=== PATIENT | female | born 1935 | race Caucasian/White ===

== ENCOUNTER → 2016-10-27 | Outpatient (REF) | payer MEDICARE, MEDICAID ==
[2016-10-27 15:49] LABS: BASO % 0.3 % (0.0-1.0); EOS # 0.1 K/mm3 (0.0-0.50); LARGE UNSTAINED CELL # 0.1 K/mm3 (0.0-0.4); LARGE UNSTAINED CELL % 1.3 % (0.0-4.0); LYMPH # 2.7 K/mm3 (1.5-4.5); LYMPH % 24.5 % (24.0-44.0); MEAN CORPUSCULAR HEMOGLOBIN 29.4 pg (27.0-33.0); MEAN CORPUSCULAR VOLUME 88.9 fl (80.0-96.0); MONO # 0.9 K/mm3 (0.0-0.8); MONO % 7.9 % (0.0-5.0); NEUTROPHILS # 7.1 K/mm3 (1.8-7.7); PLATELET COUNT, AUTOMATED 243 k/mm3 (150-450); RED CELL DISTRIBUTION WIDTH 12.9 % (11.5-14.5)
[2016-10-27 16:10] LABS: ALBUMIN 4.4 GM/DL (3.2-5.2); ALBUMIN/GLOBULIN RATIO 1.52 (1.00-1.93); ALKALINE PHOSPHATASE 93 U/L (45-117); ALT/SGPT 22 U/L (12-78); ANION GAP 9 MEQ/L (8-16); AST/SGOT 13 U/L (15-37); BILIRUBIN,TOTAL 0.6 MG/DL (0.2-1.0); BLOOD UREA NITROGEN 17 MG/DL (7-18); CALCIUM LEVEL 9.7 MG/DL (8.8-10.2); CARBON DIOXIDE LEVEL 29 MEQ/L (21-32); CHLORIDE LEVEL 102 MEQ/L (98-107); CREATININE FOR GFR 0.74 MG/DL (0.55-1.02); GLOMERULAR FILTRATION RATE > 60.0 (>32); GLUCOSE, FASTING 95 MG/DL (83-110); SODIUM LEVEL 140 MEQ/L (136-145); TOTAL PROTEIN 7.3 GM/DL (6.4-8.2)
== END ==
LOC: M SFHCPLAZ 13:57
PROVIDERS: ATTEND Nurse Practitioner Family
DX: K62.5 Hemorrhage of anus and rectum (principal)

== ENCOUNTER → 2016-11-05 | Outpatient (CLI) | payer MEDICARE, MEDICAID ==
[2016-11-05 12:32] LABS: ALBUMIN/GLOBULIN RATIO 1.25 (1.00-1.93); ALKALINE PHOSPHATASE 85 U/L (45-117); ALT/SGPT 23 U/L (12-78); ANION GAP 6 MEQ/L (8-16); AST/SGOT 14 U/L (15-37); BILIRUBIN,TOTAL 0.7 MG/DL (0.2-1.0); BLOOD UREA NITROGEN 19 MG/DL (7-18); CALCIUM LEVEL 9.6 MG/DL (8.8-10.2); CARBON DIOXIDE LEVEL 30 MEQ/L (21-32); CHLORIDE LEVEL 104 MEQ/L (98-107); CREATININE FOR GFR 0.79 MG/DL (0.55-1.02); GLOMERULAR FILTRATION RATE > 60.0 (>32); GLUCOSE, FASTING 98 MG/DL (83-110); POTASSIUM SERUM 4.2 MEQ/L (3.5-5.1); SODIUM LEVEL 140 MEQ/L (136-145); TOTAL PROTEIN 7.2 GM/DL (6.4-8.2)
[2016-11-05 12:48] LABS: MEAN CORPUSCULAR HEMOGLOBIN 29.7 pg (27.0-33.0); MEAN CORPUSCULAR HGB CONC 33.1 g/dl (32.0-36.5); MEAN CORPUSCULAR VOLUME 89.8 fl (80.0-96.0); RED CELL DISTRIBUTION WIDTH 13.1 % (11.5-14.5); WHITE BLOOD COUNT 6.6 K/mm3 (4.0-10.0)
--- NOTE | 2016-11-05 22:18 | ECGEPIP ---
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 Nonspecific ST-T abnormalities. No prior ECG available for comparison at the time of interpretation. Electronically Signed On 11-05-2016 22:18:42 EDT by Guille Awad
== END ==
LOC: M LAB 10:49
DX: Z01.818 Encounter for other preprocedural examination (principal); I10 Essential (primary) hypertension

== ENCOUNTER → 2017-08-18 | Outpatient (CLI) | payer MEDICARE, MEDICAID | LOC: M SMT 11:13 | DX: J06.0 Acute laryngopharyngitis (principal) | CPT/HCPCS: 71046 ==

== ENCOUNTER → 2017-10-28 | Outpatient (CLI) | payer MEDICARE ==
[2017-10-28 14:52] LABS: BASO # 0.1 10^3/uL (0.0-0.2); BASO % 0.6 % (0.0-1.0); HEMATOCRIT 37.9 % (36.0-47.0); HEMOGLOBIN 12.4 g/dl (12.0-16.0); IMMATURE GRANULOCYTE % 0.4 % (0-3.0); LYMPH % 39.1 % (24.0-44.0); MEAN CORPUSCULAR HEMOGLOBIN 29.3 pg (27.0-33.0); MEAN CORPUSCULAR HGB CONC 32.7 g/dl (32.0-36.5); MEAN CORPUSCULAR VOLUME 89.6 fl (80.0-96.0); MONO # 0.9 10^3/uL (0.0-0.8); MONO % 11.4 % (0.0-5.0); NEUTROPHILS # 3.8 10^3/uL (1.8-7.7); NEUTROPHILS % 48.5 % (36.0-66.0); PLATELET COUNT, AUTOMATED 229 10^3/uL (150-450); RED BLOOD COUNT 4.23 10^6/uL (4.00-5.40); RED CELL DISTRIBUTION WIDTH 13.9 % (11.5-14.5); WHITE BLOOD COUNT 7.8 10^3/uL (4.0-10.0)
[2017-10-28 15:21] LABS: TOTAL 25(OH) VITAMIN D 19.6 NG/ML (30.0-100.0)
[2017-10-28 15:22] LABS: PTH INTACT 85.1 PG/ML (18.5-88.0)
[2017-10-28 15:41] LABS: ALBUMIN 3.9 GM/DL (3.2-5.2); ALBUMIN/GLOBULIN RATIO 1.15 (1.00-1.93); ALKALINE PHOSPHATASE 91 U/L (45-117); ALT/SGPT 19 U/L (12-78); ANION GAP 7 MEQ/L (8-16); AST/SGOT 10 U/L (7-37); BILIRUBIN,TOTAL 0.4 MG/DL (0.2-1.0); BLOOD UREA NITROGEN 22 MG/DL (7-18); CARBON DIOXIDE LEVEL 28 MEQ/L (21-32); CHLORIDE LEVEL 105 MEQ/L (98-107); CHOLESTEROL LEVEL 168 MG/DL (<200); CPK CREATINE PHOSPHOKINASE 72 U/L (26-192); ESTIMATED AVERAGE GLUCOSE 123 MG/DL (60-110); FREE T4 1.07 NG/DL (0.76-1.46); GLOMERULAR FILTRATION RATE > 60.0 (>32); GLUCOSE, FASTING 121 MG/DL (70-100); HDL CHOLESTEROL 56 MG/DL (>40); HEMOGLOBIN A1c 5.9 %; LDL CHOLESTEROL 85.8 MG/DL (<100); NON-HDL-C 112 MG/DL; SODIUM LEVEL 140 MEQ/L (136-145); THYROID STIMULATING HORMONE 0.829 uIU/ML (0.358-3.740); TOTAL PROTEIN 7.3 GM/DL (6.4-8.2); TRIGLYCERIDES LEVEL 131 MG/DL (<150)
== END ==
LOC: M LAB 14:22
DX: E55.9 Vitamin D deficiency, unspecified (principal); I10 Essential (primary) hypertension; E78.5 Hyperlipidemia, unspecified; E66.9 Obesity, unspecified; Z79.899 Other long term (current) drug therapy
CPT/HCPCS: 82550

== ENCOUNTER → 2017-11-03 | Outpatient (CLI) | payer MEDICARE, MEDICAID | LOC: M WHC 08:51 | DX: M85.89 Other specified disorders of bone density and structure, multiple sites (principal); Z13.820 Encounter for screening for osteoporosis; E55.9 Vitamin D deficiency, unspecified | CPT/HCPCS: 77080 ==

== ENCOUNTER → 2017-12-08 | Outpatient (REF) | payer MEDICARE, MEDICAID ==
[2017-12-08 12:43] LABS: PTH INTACT 55.5 PG/ML (18.5-88.0)
== END ==
LOC: M LABDRAW1 11:45
DX: E55.9 Vitamin D deficiency, unspecified (principal)
CPT/HCPCS: 82306

== ENCOUNTER → 2018-06-02 | Outpatient (REF) | payer MEDICARE ==
[2018-06-02 12:32] LABS: BASO # 0.1 10^3/uL (0.0-0.2); BASO % 0.7 % (0.0-1.0); HEMATOCRIT 38.1 % (36.0-47.0); HEMOGLOBIN 12.4 g/dl (12.0-15.5); IMMATURE GRANULOCYTE % 0.5 % (0-3.0); LYMPH # 2.5 10^3/uL (1.5-4.5); LYMPH % 33.4 % (24.0-44.0); MEAN CORPUSCULAR HEMOGLOBIN 29.8 pg (27.0-33.0); MEAN CORPUSCULAR HGB CONC 32.5 g/dl (32.0-36.5); MEAN CORPUSCULAR VOLUME 91.6 fl (80.0-96.0); MONO # 0.9 10^3/uL (0.0-0.8); MONO % 11.8 % (0.0-5.0); NEUTROPHILS # 4.1 10^3/uL (1.8-7.7); NEUTROPHILS % 53.6 % (36.0-66.0); PLATELET COUNT, AUTOMATED 204 10^3/uL (150-450); RED BLOOD COUNT 4.16 10^6/uL (4.00-5.40); RED CELL DISTRIBUTION WIDTH 13.6 % (11.5-14.5); WHITE BLOOD COUNT 7.6 10^3/uL (4.0-10.0)
[2018-06-02 12:48] LABS: ESTIMATED AVERAGE GLUCOSE 123 MG/DL (60-110); HEMOGLOBIN A1c 5.9 %
[2018-06-02 13:30] LABS: ALBUMIN 3.8 GM/DL (3.2-5.2); ALBUMIN/GLOBULIN RATIO 1.23 (1.00-1.93); ALKALINE PHOSPHATASE 96 U/L (45-117); ALT/SGPT 20 U/L (12-78); ANION GAP 9 MEQ/L (8-16); AST/SGOT 11 U/L (7-37); BILIRUBIN,TOTAL 0.6 MG/DL (0.2-1.0); BLOOD UREA NITROGEN 14 MG/DL (7-18); CARBON DIOXIDE LEVEL 28 MEQ/L (21-32); CHLORIDE LEVEL 104 MEQ/L (98-107); CHOLESTEROL LEVEL 125 MG/DL (<200); CHOLESTEROL RISK RATIO 2.083 (<5); CPK CREATINE PHOSPHOKINASE 53 U/L (26-192); CREATININE FOR GFR 0.74 MG/DL (0.55-1.30); FREE T4 1.15 NG/DL (0.76-1.46); GLOMERULAR FILTRATION RATE > 60.0 (>32); GLUCOSE, FASTING 97 MG/DL (70-100); HDL CHOLESTEROL 60 MG/DL (>40); LDL CHOLESTEROL 47 MG/DL (<100); NON-HDL-C 65 MG/DL; POTASSIUM SERUM 4.3 MEQ/L (3.5-5.1); SODIUM LEVEL 141 MEQ/L (136-145); THYROID STIMULATING HORMONE 0.718 uIU/ML (0.358-3.740); TOTAL PROTEIN 6.9 GM/DL (6.4-8.2); TRIGLYCERIDES LEVEL 92 MG/DL (<150)
== END ==
LOC: M LABDRAW1 11:27
DX: E78.5 Hyperlipidemia, unspecified (principal); I10 Essential (primary) hypertension; E66.9 Obesity, unspecified
CPT/HCPCS: 82550

== ENCOUNTER → 2018-06-02 | Outpatient (CLI) | payer MEDICARE | LOC: M WHC 10:55 | DX: Z12.31 Encounter for screening mammogram for malignant neoplasm of breast (principal); R92.8 Other abnormal and inconclusive findings on diagnostic imaging of breast; Z78.0 Asymptomatic menopausal state; Z80.0 Family history of malignant neoplasm of digestive organs; E78.5 Hyperlipidemia, unspecified; I10 Essential (primary) hypertension; E66.9 Obesity, unspecified; Z79.899 Other long term (current) drug therapy | CPT/HCPCS: 82550 ==

== ENCOUNTER → 2018-07-06 | Outpatient (REF) | payer MEDICARE, MEDICAID ==
[2018-07-06 17:47] LABS: BASO % 0.4 % (0.0-1.0); HEMOGLOBIN 13.1 g/dl (12.0-15.5); IMMATURE GRANULOCYTE % 0.5 % (0-3.0); LYMPH # 3.3 10^3/uL (1.5-4.5); LYMPH % 28.9 % (24.0-44.0); MEAN CORPUSCULAR HEMOGLOBIN 29.5 pg (27.0-33.0); MEAN CORPUSCULAR HGB CONC 32.8 g/dl (32.0-36.5); MEAN CORPUSCULAR VOLUME 90.1 fl (80.0-96.0); MONO # 1.4 10^3/uL (0.0-0.8); NEUTROPHILS # 6.6 10^3/uL (1.8-7.7); NEUTROPHILS % 58.2 % (36.0-66.0); PLATELET COUNT, AUTOMATED 240 10^3/uL (150-450); RED BLOOD COUNT 4.44 10^6/uL (4.00-5.40); RED CELL DISTRIBUTION WIDTH 13.5 % (11.5-14.5); WHITE BLOOD COUNT 11.3 10^3/uL (4.0-10.0)
[2018-07-06 17:58] LABS: INR 0.93; PROTHROMBIN TIME 12.6 SECONDS (12.1-14.4)
[2018-07-06 17:59] LABS: PARTIAL THROMBOPLASTIN TIME 34.7 SECONDS (25.4-37.6)
[2018-07-06 18:09] LABS: ALBUMIN 4.3 GM/DL (3.2-5.2); ALBUMIN/GLOBULIN RATIO 1.34 (1.00-1.93); ALKALINE PHOSPHATASE 101 U/L (45-117); ALT/SGPT 21 U/L (12-78); ANION GAP 8 MEQ/L (8-16); AST/SGOT 11 U/L (7-37); BILIRUBIN,TOTAL 0.5 MG/DL (0.2-1.0); BLOOD UREA NITROGEN 19 MG/DL (7-18); CALCIUM LEVEL 9.6 MG/DL (8.8-10.2); CARBON DIOXIDE LEVEL 27 MEQ/L (21-32); CHLORIDE LEVEL 103 MEQ/L (98-107); CREATININE FOR GFR 0.78 MG/DL (0.55-1.30); GLOMERULAR FILTRATION RATE > 60.0 (>32); GLUCOSE, FASTING 96 MG/DL (70-100); POTASSIUM SERUM 3.9 MEQ/L (3.5-5.1); SODIUM LEVEL 138 MEQ/L (136-145); TOTAL PROTEIN 7.5 GM/DL (6.4-8.2)
== END ==
LOC: M SFHCPLAZ 16:04
DX: Z01.818 Encounter for other preprocedural examination (principal); H25.10 Age-related nuclear cataract, unspecified eye; E78.5 Hyperlipidemia, unspecified; I10 Essential (primary) hypertension
CPT/HCPCS: 80053

== ENCOUNTER 2018-07-13 08:47 | Day surgery (SDC) | payer MEDICARE, MEDICAID ==
[2018-07-13] MEDS: OFLOXACIN 0.3 % (OCUFLOX) OPTH SOL 5ML OS (07:00)
[2018-07-13] MEDS: CYCLOPENTOLATE 2% OPHTH SOLN 2ML BTL OS (07:00)
[2018-07-13] MEDS: TROPICAMIDE 1% OPHTH SOLN 2ML OS (07:00)
[2018-07-13] MEDS: LIDOCAINE 3.5 % 1ML OPHTH TOPICAL GEL OU (07:00)
[2018-07-13] MEDS: PHENYLEPHRINE 2.5% OPHTH SOL 2ML OS (07:00)
[~2018-07-13 08:47] MED LIST: ACETAMINOPHEN 325 MG TAB PO; MIDAZOLAM INJ 2 MG/2 ML VIAL (J2250) As Ordered; PHENYLEPHRINE HCL 10 % OPHTH. SOL 5ML OS; fentaNYL 100 MCG/2 ML INJECTION (J3010) As Ordered
[2018-07-13] MEDS: POVIDONE-IODINE 5% OPHTH PREP SOL 30ML As Ordered (11:07)
[2018-07-13] MEDS: TRIAMCINOLONE PRES FR 40 MG/ML 1ML(TRIESENCE)(OR EYE ONLY)(J3300 PER 1MG) As Ordered (11:10)
[2018-07-13] MEDS: HEALON DUET PRO(HEALON 10MG/ML 0.55ML & HEALON ENDOCOAT 30MG/ML 0.85ML) As Ordered (11:10)
[2018-07-13] MEDS: LIDOCAINE 1% SDV 5 ML VIAL As Ordered (11:10)
[2018-07-13] MEDS: MOXIFLOXACIN IN BSS 0.25MG/0.25ML INTRACAMERAL INJ (OR EYE ONLY)(J2280) As Ordered (11:10)
[2018-07-13] MEDS: BSS with VANC/TOB/EPI for EYE CASES IR (11:10)
[2018-07-13] MEDS: LIDOCAINE 2% W/EPIN INJ 20ML **PRES FREE XX (11:11)
[2018-07-13] MEDS ORDERED: TRIMETHOBENZAMIDE 300 MG CAP PO (11:45)
[2018-07-13] MEDS: AcetaZOLAMIDE 500 MG ER CAP PO (11:45)
== END 2018-07-13 12:43 | disposition home or self-care (01) ==
LOC: M SDC 08:47
DX: H25.9 Unspecified age-related cataract (principal); I10 Essential (primary) hypertension; E78.5 Hyperlipidemia, unspecified; Z79.899 Other long term (current) drug therapy
CPT/HCPCS: 66984

== ENCOUNTER → 2018-07-29 | Outpatient (REF) | payer MEDICARE, MEDICAID ==
[2018-07-29 18:22] LABS: NT-PRO BNP 140 PG/ML (<450)
== END ==
LOC: M SFHCPLAZ 15:46
DX: R06.02 Shortness of breath (principal)
CPT/HCPCS: 36415

== ENCOUNTER → 2018-11-11 | Outpatient (REF) | payer MEDICARE, MEDICAID ==
[~2018-11-11] MED LIST changes: -ACETAMINOPHEN 325 MG TAB PO; +CRES10TA PO; +D 50CAP PO; +LOSA100T8 PO; -MIDAZOLAM INJ 2 MG/2 ML VIAL (J2250) As Ordered; +MULT1TAB10 PO; -PHENYLEPHRINE HCL 10 % OPHTH. SOL 5ML OS; -fentaNYL 100 MCG/2 ML INJECTION (J3010) As Ordered
== END ==
LOC: M SFHCPLAZ 17:01
PROVIDERS: ATTEND Physician Assistant
DX: R30.0 Dysuria (principal)
CPT/HCPCS: 51798; 87088; 87186; G0463

== ENCOUNTER → 2018-11-25 | Outpatient (REF) | payer MEDICARE, MEDICAID | LOC: M SMT 13:26 | PROVIDERS: ATTEND Urology | DX: N39.0 Urinary tract infection, site not specified (principal) | CPT/HCPCS: 81002; 87088; 87186; G0463 ==

== ENCOUNTER → 2019-01-07 | Outpatient (CLI) | payer MEDICARE, MEDICAID ==
[2019-01-07 18:17] LABS: ALBUMIN 4.3 GM/DL (3.2-5.2); ALT/SGPT 25 U/L (12-78); BILIRUBIN,TOTAL 0.5 MG/DL (0.2-1.0); BLOOD UREA NITROGEN 19 MG/DL (7-18); CALCIUM LEVEL 10.2 MG/DL (8.8-10.2); CARBON DIOXIDE LEVEL 31 MEQ/L (21-32); CHLORIDE LEVEL 103 MEQ/L (98-107); CREATININE FOR GFR 0.78 MG/DL (0.55-1.30); GLOMERULAR FILTRATION RATE > 60.0 (>32); GLUCOSE, FASTING 99 MG/DL (70-100); POTASSIUM SERUM 4.2 MEQ/L (3.5-5.1); SODIUM LEVEL 141 MEQ/L (136-145); TOTAL PROTEIN 7.7 GM/DL (6.4-8.2)
== END ==
LOC: M SMT 14:05
PROVIDERS: ATTEND Physician Assistant Medical
DX: B95.2 Enterococcus as the cause of diseases classified elsewhere (principal); E78.5 Hyperlipidemia, unspecified; N39.0 Urinary tract infection, site not specified
CPT/HCPCS: 36415; 51798; 80053; 87088; 87186; G0463

== ENCOUNTER → 2019-03-11 | Outpatient (REF) | payer MEDICARE, MEDICAID | LOC: M SMT 17:01 | PROVIDERS: ATTEND Urology | DX: N39.0 Urinary tract infection, site not specified (principal) ==

== ENCOUNTER → 2019-05-31 | Outpatient (REF) | payer MEDICARE, MEDICAID ==
[2019-05-31 16:30] LABS: BASO # 0.1 10^3/uL (0.0-0.2); BASO % 0.7 % (0.0-1.0); HEMATOCRIT 40.4 % (36.0-47.0); LYMPH # 2.3 10^3/uL (1.5-5.0); LYMPH % 30.6 % (24.0-44.0); MEAN CORPUSCULAR HGB CONC 32.2 g/dl (32.0-36.5); MEAN CORPUSCULAR VOLUME 93.1 fl (80.0-96.0); MONO # 0.9 10^3/uL (0.0-0.8); MONO % 12.2 % (0.0-5.0); NEUTROPHILS # 4.1 10^3/uL (1.5-8.5); NEUTROPHILS % 55.8 % (36.0-66.0); PLATELET COUNT, AUTOMATED 225 10^3/uL (150-450); RED BLOOD COUNT 4.34 10^6/uL (4.00-5.40); WHITE BLOOD COUNT 7.4 10^3/uL (4.0-10.0)
[2019-05-31 16:43] LABS: ALBUMIN 4.2 GM/DL (3.2-5.2); ALT/SGPT 19 U/L (12-78); BILIRUBIN,TOTAL 0.6 MG/DL (0.2-1.0); BLOOD UREA NITROGEN 19 MG/DL (7-18); CALCIUM LEVEL 9.6 MG/DL (8.8-10.2); CARBON DIOXIDE LEVEL 29 MEQ/L (21-32); CHLORIDE LEVEL 105 MEQ/L (98-107); CHOLESTEROL LEVEL 163 MG/DL (<200); CHOLESTEROL RISK RATIO 2.587 (<5); CPK CREATINE PHOSPHOKINASE 64 U/L (26-192); CREATININE FOR GFR 0.73 MG/DL (0.55-1.30); FREE T4 1.18 NG/DL (0.76-1.46); GLOMERULAR FILTRATION RATE > 60.0 (>32); GLUCOSE, FASTING 97 MG/DL (70-100); HDL CHOLESTEROL 63 MG/DL (>40); LDL CHOLESTEROL 79 MG/DL (<100); NON-HDL-C 100 MG/DL; POTASSIUM SERUM 4.1 MEQ/L (3.5-5.1); SODIUM LEVEL 138 MEQ/L (136-145); THYROID STIMULATING HORMONE 0.958 uIU/ML (0.358-3.740); TOTAL PROTEIN 7.8 GM/DL (6.4-8.2); TRIGLYCERIDES LEVEL 104 MG/DL (<150)
[2019-05-31 17:01] LABS: HEMOGLOBIN A1c 5.9 %
[2019-05-31 17:36] LABS: PTH INTACT 75.1 PG/ML (18.5-88.0); TOTAL 25(OH) VITAMIN D 20.6 NG/ML (30.0-100.0)
== END ==
LOC: M SFHCPLAZ 12:24
PROVIDERS: ATTEND Physician Assistant Medical
DX: E55.9 Vitamin D deficiency, unspecified (principal); E78.5 Hyperlipidemia, unspecified; I10 Essential (primary) hypertension; E66.9 Obesity, unspecified
CPT/HCPCS: 36415; 80053; 80061; 82306; 82550; 83036; 83970; 84439; 84443; 85025; 90682; G0008; G0463

== ENCOUNTER → 2019-09-28 | Outpatient (REF) | payer OTHER, MEDICAID ==
[2019-09-28 17:29] LABS: APPEARANCE, URINE CLEAR (CLEAR); BACTERIA, URINE AUTO NEGATIVE (NEGATIVE); BILIRUBIN, URINE AUTO NEGATIVE (NEGATIVE); BLOOD, URINE BLOOD 1+ (NEGATIVE); COLOR, URINE YELLOW (YELLOW); GLUCOSE, URINE (UA) AUTO NEGATIVE (NEGATIVE); KETONE, URINE AUTO NEGATIVE (NEGATIVE); LEUKOCYTE ESTERASE, URINE AUTO 1+ (NEGATIVE); MUCUS, URINE SMALL (NEGATIVE); NITRITE, URINE AUTO NEGATIVE (NEGATIVE); PROTEIN, URINE AUTO NEGATIVE (NEGATIVE); RBC, URINE AUTO 8 /HPF (0-3); SPECIFIC GRAVITY URINE AUTO 1.014 (1.002-1.035); SQUAMOUS EPITHELIAL CELL UR AU 1 /HPF (0-6); UROBILINOGEN, URINE AUTO 0.2 mg/dL (0.0-2.0); WBC, URINE AUTO 17 /HPF (0-3)
== END ==
LOC: M SMT 16:50
PROVIDERS: ATTEND Nurse Practitioner Family
DX: N39.0 Urinary tract infection, site not specified (principal)
CPT/HCPCS: 81001; 87088; 87186; G0463

== ENCOUNTER → 2020-04-04 | Outpatient (REF) | payer OTHER, MEDICAID ==
[2020-04-04 18:27] LABS: APPEARANCE, URINE CLEAR (CLEAR); BACTERIA, URINE AUTO NEGATIVE (NEGATIVE); BILIRUBIN, URINE AUTO NEGATIVE (NEGATIVE); BLOOD, URINE BLOOD 1+ (NEGATIVE); COLOR, URINE YELLOW (YELLOW); GLUCOSE, URINE (UA) AUTO NEGATIVE (NEGATIVE); KETONE, URINE AUTO NEGATIVE (NEGATIVE); LEUKOCYTE ESTERASE, URINE AUTO 1+ (NEGATIVE); NITRITE, URINE AUTO NEGATIVE (NEGATIVE); PROTEIN, URINE AUTO NEGATIVE (NEGATIVE); RBC, URINE AUTO 0 /HPF (0-3); SPECIFIC GRAVITY URINE AUTO 1.015 (1.002-1.035); SQUAMOUS EPITHELIAL CELL UR AU 1 /HPF (0-6); UROBILINOGEN, URINE AUTO 0.2 mg/dL (0.0-2.0); WBC, URINE AUTO 1 /HPF (0-3)
== END ==
LOC: M LAB REF 12:00
PROVIDERS: ATTEND Nurse Practitioner Family
DX: N39.0 Urinary tract infection, site not specified (principal)
CPT/HCPCS: 51798; 81000; 81001; 87088; 87186; G0463

== ENCOUNTER → 2020-10-10 | Outpatient (REF) | payer OTHER, MEDICAID ==
[2020-10-10 14:27] LABS: APPEARANCE, URINE CLOUDY (CLEAR); BACTERIA, URINE AUTO NEGATIVE (NEGATIVE); BILIRUBIN, URINE AUTO NEGATIVE (NEGATIVE); BLOOD, URINE BLOOD 1+ (NEGATIVE); COLOR, URINE YELLOW (YELLOW); GLUCOSE, URINE (UA) AUTO NEGATIVE (NEGATIVE); KETONE, URINE AUTO NEGATIVE (NEGATIVE); LEUKOCYTE ESTERASE, URINE AUTO 3+ (NEGATIVE); MUCUS, URINE SMALL (NEGATIVE); NITRITE, URINE AUTO NEGATIVE (NEGATIVE); PROTEIN, URINE AUTO NEGATIVE (NEGATIVE); RBC, URINE AUTO 0 /HPF (0-3); SQUAMOUS EPITHELIAL CELL UR AU 4 /HPF (0-6); UROBILINOGEN, URINE AUTO 0.2 mg/dL (0.0-2.0); WBC, URINE AUTO 112 /HPF (0-3)
[2020-10-10 14:50] LABS: ALBUMIN 4.3 GM/DL (3.2-5.2); ALT/SGPT 20 U/L (12-78); BILIRUBIN,TOTAL 0.5 MG/DL (0.2-1.0); BLOOD UREA NITROGEN 20 MG/DL (7-18); CALCIUM LEVEL 10.2 MG/DL (8.8-10.2); CARBON DIOXIDE LEVEL 27 MEQ/L (21-32); CHLORIDE LEVEL 103 MEQ/L (98-107); CHOLESTEROL LEVEL 144 MG/DL (<200); CHOLESTEROL RISK RATIO 2.571 (<5); CPK CREATINE PHOSPHOKINASE 56 U/L (26-192); CREATININE FOR GFR 0.83 MG/DL (0.55-1.30); FREE T4 1.01 NG/DL (0.76-1.46); GLOMERULAR FILTRATION RATE > 60.0 (>32); GLUCOSE, FASTING 96 MG/DL (70-100); HDL CHOLESTEROL 56 MG/DL (>40); LDL CHOLESTEROL 60 MG/DL (<100); NON-HDL-C 88 MG/DL; POTASSIUM SERUM 4.9 MEQ/L (3.5-5.1); SODIUM LEVEL 137 MEQ/L (136-145); TOTAL 25(OH) VITAMIN D 22.5 NG/ML (30.0-100.0); TOTAL PROTEIN 7.5 GM/DL (6.4-8.2); TRIGLYCERIDES LEVEL 142 MG/DL (<150)
[2020-10-10 15:18] LABS: HEMOGLOBIN A1c 5.7 %
[2020-10-10 15:46] LABS: BASO # 0.1 10^3/uL (0.0-0.2); BASO % 0.7 % (0.0-1.0); EOS # 0.1 10^3/uL (0.0-0.5); EOS % 1.4 % (0.0-3.0); HEMATOCRIT 40.7 % (36.0-47.0); LYMPH # 3.4 10^3/uL (1.5-5.0); LYMPH % 39.9 % (24.0-44.0); MEAN CORPUSCULAR HEMOGLOBIN 29.4 pg (27.0-33.0); MEAN CORPUSCULAR HGB CONC 31.9 g/dl (32.0-36.5); MEAN CORPUSCULAR VOLUME 92.1 fl (80.0-96.0); MONO # 1.3 10^3/uL (0.0-0.8); MONO % 14.7 % (2.0-8.0); NEUTROPHILS # 3.7 10^3/uL (1.5-8.5); NEUTROPHILS % 42.5 % (36.0-66.0); PLATELET COUNT, AUTOMATED 223 10^3/uL (150-450); RED BLOOD COUNT 4.42 10^6/uL (4.00-5.40); WHITE BLOOD COUNT 8.6 10^3/uL (4.0-10.0)
== END ==
LOC: M SFHCPLAZ 09:45
PROVIDERS: ATTEND Physician Assistant Medical
DX: R34 Anuria and oliguria (principal); E55.9 Vitamin D deficiency, unspecified; I10 Essential (primary) hypertension; E78.5 Hyperlipidemia, unspecified; E66.9 Obesity, unspecified

== ENCOUNTER 2021-01-03 11:15 | Inpatient (IN) | payer OTHER, MEDICAID ==
[~2021-01-03] VITALS: Ht 165.1 cm; Wt 93.4 kg
--- NOTE | 2021-01-03 11:47 | REP ---
INDICATION: SEPSIS/SHOCK COMPARISON: 08/18/2017 TECHNIQUE: Portable AP view of the chest FINDINGS: The mediastinum and cardiac silhouette are stable and within normal limits for portable technique. The lung love are clear without acute consolidation, effusion, or pneumothorax. Chronic linear scarring in the right lower lung zone again noted. Skeletal structures are intact. IMPRESSION: No acute cardiopulmonary process appreciated. <Electronically signed by Paddy Umana > 01/03/21 1158
[2021-01-03 11:56] LABS: VENOUS BASE EXCESS 2.5 (-2.0-2.0); VENOUS HCO3 25.9 MEQ/L (23.0-27.0); VENOUS O2 SATURATION 88.1 % (60.0-80.0); VENOUS PARTIAL PRESSURE CO2 36.2 mmHg (38.0-50.0); VENOUS PARTIAL PRESSURE O2 49.3 mmHg (30.0-50.0); VENOUS PH 7.472 UNITS (7.330-7.430); VENOUS STANDARD HCO3 26.4 MEQ/L
[2021-01-03 12:03] LABS: BASO % 0.5 % (0.0-1.0); EOS # 0.1 10^3/uL (0.0-0.5); EOS % 1.8 % (0.0-3.0); HEMATOCRIT 38.5 % (36.0-47.0); HEMOGLOBIN 12.7 g/dl (12.0-15.5); LYMPH # 0.9 10^3/uL (1.5-5.0); LYMPH % 16.3 % (24.0-44.0); MEAN CORPUSCULAR HEMOGLOBIN 29.1 pg (27.0-33.0); MEAN CORPUSCULAR VOLUME 88.3 fl (80.0-96.0); MONO # 1.2 10^3/uL (0.0-0.8); MONO % 21.4 % (2.0-8.0); NEUTROPHILS # 3.4 10^3/uL (1.5-8.5); NEUTROPHILS % 59.1 % (36.0-66.0); PLATELET COUNT, AUTOMATED 150 10^3/uL (150-450); RED BLOOD COUNT 4.36 10^6/uL (4.00-5.40); WHITE BLOOD COUNT 5.7 10^3/uL (4.0-10.0)
[2021-01-03] MEDS ORDERED: ACETAMINOPHEN *IV* 1,000 MG in IV 1 EA IV ONE (12:25)
[2021-01-03 12:35] LABS: ALBUMIN 3.9 GM/DL (3.2-5.2); ALT/SGPT 26 U/L (12-78); BILIRUBIN,DIRECT 0.2 MG/DL (0.0-0.2); BILIRUBIN,TOTAL 0.8 MG/DL (0.2-1.0); BLOOD UREA NITROGEN 13 MG/DL (7-18); C REACTIVE PROTEIN QUANTITATIV 5.12 MG/DL (0.00-0.30); CALCIUM LEVEL 9.3 MG/DL (8.8-10.2); CARBON DIOXIDE LEVEL 27 MEQ/L (21-32); CHLORIDE LEVEL 103 MEQ/L (98-107); CK-MB VALUE MASS < 1.0 NG/ML (<3.6); CPK CREATINE PHOSPHOKINASE 88 U/L (26-192); CREATININE FOR GFR 0.74 MG/DL (0.55-1.30); GLOMERULAR FILTRATION RATE > 60.0 (>32); GLUCOSE, FASTING 113 MG/DL (70-100); MB/CK RELATIVE INDEX 1.14 (< OR =4); SODIUM LEVEL 135 MEQ/L (136-145); TOTAL PROTEIN 7.1 GM/DL (6.4-8.2); TROPONIN I < 0.02 NG/ML (< 0.10)
[2021-01-03] MEDS ORDERED: ISOVUE-370 76% 100ML VIAL As Ordered ONE (12:40)
--- NOTE | 2021-01-03 13:39 | REP ---
INDICATION: chest pain COMPARISON: None. TECHNIQUE: Axial contrast enhanced images from the thoracic inlet to the upper abdomen using pulmonary embolus technique with multiplanar re-formations. 100 ml Isovue 370 intravenous contrast material administered without complication. This CT examination was performed using the following dose reduction techniques: Automated exposure control, adjustment of mA and/or kv according to the patient's size, and use of iterative reconstruction technique. FINDINGS: Satisfactory enhancement of the pulmonary vasculature is achieved and no filling defects are identified to suggest pulmonary embolus. Further evaluation of the mediastinum demonstrates normal thoracic aorta, heart and pericardium. The bilateral lung love are well aerated with subtle areas of linear scarring in the right midlung and right lower lobe region. No acute consolidation, effusion, or pneumothorax. Tracheobronchial tree is patent. No nodule or mass lesion is identified. No significant adenopathy noted. Surrounding musculoskeletal structures intact IMPRESSION: No evidence for pulmonary embolus. No acute mediastinal or pleural parenchymal process. <Electronically signed by Paddy Umana > 01/03/21 [id number]
--- NOTE | 2021-01-03 13:45 | REP ---
INDICATION: chest pain, decreased ostomy output, right flank pain. COMPARISON: None TECHNIQUE: Axial contrast-enhanced images from the lung bases to the pubic symphysis using 100 cc Isovue 370 intravenous contrast material. Coronal and sagittal reformations obtained. This CT examination was performed using the following dose reduction techniques: Automated exposure control, adjustment of mA and/or kv according to the patient's size, and the use of iterative reconstruction technique. FINDINGS: Liver, spleen, pancreas, gallbladder, and bilateral adrenal glands are normal. Kidneys demonstrate few bilateral hypodensities suggesting cysts measuring up to 1.5 cm right kidney and 2.2 cm left kidney without perinephric stranding, hydroureteronephrosis, or nephroureterolithiasis. Patient appears to be status post diverting colostomy and there is a moderate to significant peristomal hernia containing mesenteric fat and nonobstructed loops of bowel. Colonic diverticulosis noted without acute diverticulitis. No evidence for bowel obstruction or free air to suggest perforation. No ascites or drainable collection/abscess. Pelvis demonstrates normal bladder and prior hysterectomy. No ascites. No free air. No intraperitoneal or retroperitoneal adenopathy. Atherosclerotic changes to the aorta and vasculature noted without aneurysm or dissection. Musculoskeletal structures demonstrate degenerative change without acute osseous abnormality. IMPRESSION: 1. Evidence for diverting colostomy with moderate to significant peristomal hernia containing mesenteric fat and nonobstructed loops of bowel. 2. Colonic diverticulosis without evidence for acute diverticulitis. 3. Renal hypodensities compatible with cysts up to 2.2 cm. 4. No ascites, focal inflammatory stranding, adenopathy or free air. <Electronically signed by Paddy Umana > 01/03/21 [id number]
--- NOTE | 2021-01-03 14:13 | REP ---
INDICATION: edema, pain COMPARISON: None. TECHNIQUE: Powell scale and color Doppler evaluation right and left lower extremity using linear high frequency transducer. FINDINGS: Ultrasound examination of the right and left lower extremity deep venous structures from the common femoral vein through popliteal veins bilaterally as well as the right calf/ankle to include the peroneal, and tibial veins demonstrates normal compressibility flow and wave patterns in response to respiration and augmentation. Left veins below the level of the popliteal vein were incompletely evaluated due to overlying edema. IMPRESSION: No evidence for deep venous thrombosis. <Electronically signed by Paddy Umana > 01/03/21 [id number]
[2021-01-03 14:29] LABS: APPEARANCE, URINE HAZY (CLEAR); BACTERIA, URINE AUTO NEGATIVE (NEGATIVE); BILIRUBIN, URINE AUTO NEGATIVE (NEGATIVE); BLOOD, URINE BLOOD 3+ (NEGATIVE); COLOR, URINE YELLOW (YELLOW); GLUCOSE, URINE (UA) AUTO NEGATIVE (NEGATIVE); KETONE, URINE AUTO 1+ mg/dL (NEGATIVE); LEUKOCYTE ESTERASE, URINE AUTO 3+ (NEGATIVE); MUCUS, URINE SMALL (NEGATIVE); NITRITE, URINE AUTO NEGATIVE (NEGATIVE); PROTEIN, URINE AUTO 2+ mg/dL (NEGATIVE); RBC, URINE AUTO 42 /HPF (0-3); SPECIFIC GRAVITY URINE AUTO 1.044 (1.002-1.035); SQUAMOUS EPITHELIAL CELL UR AU 3 /HPF (0-6); UROBILINOGEN, URINE AUTO 0.2 mg/dL (0.0-2.0); WBC, URINE AUTO 54 /HPF (0-3)
[2021-01-03] MEDS ORDERED: cefTRIAXone SOD 1 GM in D5W MINI-BAG PLUS 50 ML IV ONE (14:55)
[2021-01-03] MEDS ORDERED: ONDANSETRON 4MG/2ML VIAL IV ONE (15:00)
[2021-01-03] MEDS: MORPHINE 2 MG/ML 1ML VIAL (J2270) IV PRN ×2 (15:18→16:00)
[2021-01-03] MEDS ORDERED: KETOROLAC 30 MG/ML 1ML VIAL IV PRN (16:25)
[2021-01-03] MEDS ORDERED: D31000TA2 PO (16:42)
[2021-01-03] MEDS ORDERED: CALC600T60 PO (16:42)
[2021-01-03] MEDS ORDERED: VITMTA PO (16:42)
[2021-01-03] MEDS ORDERED: LORA-674 PO (16:42)
--- NOTE | 2021-01-03 16:55 | HPEPDOC ---
General Date of Admission Jan 03, 2021 at 16:24 Date of Service: Jan 03, 2021 Chief Complaint The patient is a 85-year-old female admitted with a reason for visit of UTI. Source: Patient Exam Limitations: No limitations History of Present Illness Patient is 85 years old female with past history of nephrolithiasis, hypertension, hyperlipidemia, rectal prolapse status post colostomy, osteopenia, chronic cystitis presented hospital with right buttock pain with radiation to the right leg. Patient stated that she has been having these symptoms for past 2 days, she stated the pain 8 out of 10 exacerbated by movement. Patient denied any chest pain, palpitations, any shortness of breath. She states that she has increased urinary frequency. In ER patient was found to have fever of 100 Fahrenheit, no leukocytosis, UA shows pyuria. CTA showed No evidence for pulmonary embolus. No acute mediastinal or pleural parenchymal process. CT abdomen pelvis showed Renal hypodensities compatible with cysts up to 2.2 cm. No ascites, focal inflammatory stranding, adenopathy or free air. Home Medications Scheduled Calcium Carbonate (Calcium) 600 Mg Tablet, 600 MG PO DAILY, (Reported) Cholecalciferol (Vitamin D3) (Vitamin D3) 1,000 Unit Tablet, 2,000 UNITS PO DAILY, (Reported) Loratadine (Loratadine) 10 Mg Tablet, 10 MG PO QPM, (Reported) Losartan/Hydrochlorothiazide (Losartan-Hctz 100-12.5 mg Tab) 1 Tab Tab, 1 TAB PO QPM, (Reported) Multivitamins (Thera M Plus Tablet) 1 Each Tablet, 1 TAB PO DAILY, (Reported) Rosuvastatin Calcium (Crestor) 10 Mg Tab, 10 MG PO QPM, (Reported) Allergies Coded Allergies: No Known Allergies (Unverified , 05/18/13) Past Medical History Medical History HYPERTENSION HYPERLIPIDEMIA RECTAL PROLAPSE-2017 COLOSTOMY POSTMENOPAUSAL BONE LOSS 11/18 DEXA SPINE -1.4, LFEMUR -1.0, R FEMUR -1.6 F/U 2Y VITAMIN D DEFICIENCY CHRONIC CYSTITIS Sciatica pain Surgical History REPAIR OF RECTAL PROLAPSE- DR. RAMIREZ 2013 ARTHROSCOPIC SURGERY LEFT KNEE/ REMOVE CALCIUM DEPOSITS: NCOG 2011 HYSTERECTOMY 2006 APPENDECTOMY 2006 TEETH EXTRACTION COLOSTOMY 01/2017 CYSTOSCOPY 03/11/2019 Family History FATHER: 64 YRS, DKA MOTHER: 63 YRS, COLON CANCER SIBLINGS: BROTHER: AGE 74 LUNG CA BROTHER: AGE 76 STROKE SISTER: AGE 84 LUNG CA SISTER: AGE 81 IA SON(S): CAD, RENAL DISEASE 1 BROTHER(S) , 1 SISTER(S) . 2 SON(S) , 2 DAUGHTER(S) . NO KNOWN UROOLOGICAL FAMILY HISTORY. Social History * Smoker: Denies Alcohol: Denies Drugs: denies A-FIB/CHADSVASC A-FIB History Current/History of A-Fib/PAF?: No Current PO Anticoag Therapy: No Review of Systems Constitutional: Reports: Fever; Denies: Chills Eyes: Denies: Pain ENT: Denies: Head Aches Skin: Denies: Rash, Lesions Pulmonary: Denies: Dyspnea Cardiovascular: Denies: Chest Pain Gastrointestinal: Denies: Nausea Genitourinary: Reports: Dysuria, Frequency Hematologic: Denies: Bruising Endocrine: Denies: Polydipsia, Polyphagia Musculoskeletal: Reports: Leg Pain; Denies: Neck Pain Neurological: Denies: Weakness Psych: Reports: Mood Normal Physical Examination General Exam: Positive: Alert, Cooperative Eye Exam: Positive: PERRLA ENT Exam: Positive: Atraumatic Neck Exam: Positive: Supple; Negative: JVD Chest Exam: Positive: Clear to auscultation Heart Exam: Positive: Rate Normal Telemetry: Positive: No significant arrhythmia Abdomen Exam: Positive: Normal bowel sounds Extremity Exam: Negative: Clubbing, Cyanosis Skin Exam: Positive: Nl turgor and temperature Neuro Exam: Positive: Cranial Nerves 3-12 NL Psych Exam: Positive: Mental status NL Vital Signs Vital Signs Date Time Temp Pulse Resp B/P (MAP) Pulse Ox O2 Delivery O2 Flow Rate FiO2 01/03/21 16:00 16 01/03/21 15:15 70 95 Room Air 01/03/21 15:01 127/60 (82) 01/03/21 14:22 100.0 Laboratory Data Labs 24H Laboratory Tests 2 01/03/21 11:20: Immature Granulocyte % (Auto) 0.9, Neutrophils (%) (Auto) 59.1, Lymphocytes (%) (Auto) 16.3L, Monocytes (%) (Auto) 21.4H, Eosinophils (%) (Auto) 1.8, Basophils (%) (Auto) 0.5, Neutrophils # (Auto) 3.4, Lymphocytes # (Auto) 0.9L, Monocytes # (Auto) 1.2H, Eosinophils # (Auto) 0.1, Basophils # (Auto) 0.0, Nucleated Red Blood Cells % (auto) 0.0, Blood Gas Bicarbonate Standard 26.4, Venous Blood pH 7.472H, Venous Blood Partial Pressure CO2 36.2L, Venous Blood Partial Pressure O2 49.3, Venous Blood Total Carbon Dioxide 27.0, Venous Blood HCO3 25.9, Venous Blood Oxygen Saturation 88.1H, Venous Blood Base Excess 2.5H, Anion Gap 5L, Glomerular Filtration Rate > 60.0, Lactic Acid Level 1.0, Calcium Level 9.3, Total Bilirubin 0.8, Direct Bilirubin 0.2, Aspartate Amino Transf (AST/SGOT) 20, Alanine Aminotransferase (ALT/SGPT) 26, Alkaline Phosphatase 89, Total Creatine Kinase 88, Creatine Kinase MB < 1.0, Creatine Kinase MB Relative Index 1.14, Troponin I < 0.02, C-Reactive Protein, Quantitative 5.12H, Total Protein 7.1, Al bumin 3.9, Albumin/Globulin Ratio 1.2 01/03/21 14:19: Urine Color YELLOW, Urine Appearance HAZY, Urine pH 6.0, Urine Specific Bill[place] 1.044, Urine Protein 2+H, Urine Glucose (Auto)(UA) NEGATIVE, Urine Ketones (Auto) 1+H, Urine Blood 3+H, Urine Nitrite NEGATIVE, Urine Bilirubin NEGATIVE, Urine Urobilinogen 0.2, Urine Leukocyte Esterase (Auto) 3+H, Urine WBC (Auto) 54H, Urine RBC (Auto) 42H, Urine Hyaline Casts (Auto) 0, Urine Bacteria (Auto) NEGATIVE, Urine Squamous Epithelial Cells 3, Urine Mucus (Auto) SMALL, Urine Sperm (Auto) CBC/BMP Laboratory Tests 01/03/21 11:20 Microbiology Microbiology 01/03/21 Urine Culture, Received Pending 01/03/21 Respiratory Virus Panel (PCR) (ALESSANDRO) - Final, Complete 01/03/21 Blood Culture, Received Pending 01/03/21 Blood Culture, Received Pending Assessment/Plan Patient is 85 years old female with past history of nephrolithiasis, hypertensio n, hyperlipidemia, rectal prolapse status post colostomy, osteopenia, chronic cystitis presented hospital with right buttock pain with radiation to the right leg. Patient stated that she has been having these symptoms for past 2 days, she stated the pain 8 out of 10 exacerbated by movement. Patient denied any chest pain, palpitations, any shortness of breath. She states that she has increased urinary frequency. In ER patient was found to have fever of 100 Fahrenheit, no leukocytosis, UA shows pyuria. CTA showed No evidence for pulmonary embolus. No acute mediastinal or pleural parenchymal process. CT abdomen pelvis showed Renal hypodensities compatible with cysts up to 2.2 cm. No ascites, focal inflammatory stranding, adenopathy or free air. Problems (1) UTI (urinary tract infection) Status: Acute Problem Text: Urinalysis shows pyuria There is concern for acute pyelonephritis given fever and pyuria Continue ceftriaxone IV Await blood culture, urine culture IV fluid (2) Back pain with sciatica Status: Acute Problem Text: Most like a patient developed right-sided sciatica pain given symptoms exacerbated with right leg elevation and tenderness over the piriformis area Pain management PT/OT (3) Hypertension Status: Chronic Problem Text: Blood pressures under control Continue home meds (4) Hyperlipidemia Status: Chronic Problem Text: Continue statin Plan / VTE VTE Prophylaxis Ordered?: Yes CLAUDIA JAMISON DO Jan 03, 2021 16:55
[2021-01-03] MEDS ORDERED: traMADol 50 MG TAB PO PRN (17:00)
[2021-01-03 17:17] LABS: NT-PRO BNP 881 PG/ML (<450)
[2021-01-03] MEDS: NS 1,000 ML IV SCH (18:43)
[2021-01-03] MEDS: ROSUVASTATIN 10 MG TAB (CRESTOR) PO SCH (18:43)
[2021-01-03] MEDS: LORATADINE 10 MG TAB PO SCH (18:43)
[2021-01-03 19:56] LABS: PTH INTACT 77.5 PG/ML (18.5-88.0)
--- NOTE | 2021-01-03 20:03 | ECGEPIP ---
[facility] - ED Test Date: 2021-01-03 Pat Name: DEAN GARCIA Department: Room: - Gender: Female Uat Tester: edi : 1935 Requested By: Zakiya Calhoun Order Number: [id number] Reading MD: Haseeb Strong Measurements Intervals [place] Rate: 78 P: 36 MD: 150 QRS: 53 QRSD: 80 T: 41 QT: 374 QTc: 426 Interpretive Statements Normal sinus rhythm NSTTW ABNORMALITY(S) BASELINE ARTIFACT AFFECTS INTERPRETATION SIMILAR TO 11/05/16 Electronically Signed on 01-03-2021 20:02:50 EDT by Haseeb Strong
[2021-01-03] MEDS: ACETAMINOPHEN TAB 650MG DOSE (2X325MG) PO PRN (21:27)
[2021-01-03 22:00] VITALS: BP 149/72
[2021-01-04] MEDS: NS 1,000 ML IV SCH (02:29)
[2021-01-04 06:00] VITALS: BP 128/59
[2021-01-04 06:29] LABS: HEMATOCRIT 37.6 % (36.0-47.0); HEMOGLOBIN 12.4 g/dl (12.0-15.5); MEAN CORPUSCULAR HEMOGLOBIN 29.2 pg (27.0-33.0); MEAN CORPUSCULAR VOLUME 88.7 fl (80.0-96.0); PLATELET COUNT, AUTOMATED 107 10^3/uL (150-450); RED BLOOD COUNT 4.24 10^6/uL (4.00-5.40); WHITE BLOOD COUNT 5.1 10^3/uL (4.0-10.0)
[2021-01-04 06:59] LABS: ALBUMIN 3.5 GM/DL (3.2-5.2); ALT/SGPT 34 U/L (12-78); BILIRUBIN,TOTAL 0.6 MG/DL (0.2-1.0); BLOOD UREA NITROGEN 15 MG/DL (7-18); CALCIUM LEVEL 8.2 MG/DL (8.8-10.2); CARBON DIOXIDE LEVEL 24 MEQ/L (21-32); CHLORIDE LEVEL 106 MEQ/L (98-107); CREATININE FOR GFR 0.72 MG/DL (0.55-1.30); GLOMERULAR FILTRATION RATE > 60.0 (>32); GLUCOSE, FASTING 105 MG/DL (70-100); MAGNESIUM LEVEL 2.1 MG/DL (1.8-2.4); SODIUM LEVEL 137 MEQ/L (136-145); TOTAL PROTEIN 6.4 GM/DL (6.4-8.2)
[2021-01-04] MEDS: ENOXAPARIN 40MG/0.4ML SYRINGE (J1650 PER 10MG) SC SCH (10:04)
[2021-01-04] MEDS: VITAMIN D 1,000 INTERNATIONAL UNITS TABLET PO SCH (10:04)
[2021-01-04] MEDS: FUROSEMIDE 40MG/4ML VIAL (J1940) IV SCH ×2 (10:05→16:06)
[2021-01-04] MEDS: LOSARTAN 50MG TABLET PO SCH (10:15)
--- NOTE | 2021-01-04 13:12 | IPNPDOC ---
Text Note Date of Service The patient was seen on 01/04/21. NOTE Subjective: No any acute events overnight. Patient stated that the right buttock and right leg pain significantly subsided. Objective: GENERAL APPEARANCE: NAD HEENT: no scleral icterus, plus JVD, EOMI CARDIOVASCULAR: S1S2 LUNGS: Diminished lung sounds bilaterally ABDOMEN: soft & not tender w palpitation, colostomy in place, large left abdominal hernia MUSCULOSKELETAL: no cyanosis, +1 leg swelling bilaterally INTEGUMENT: no generalized pallor NEUROLOGICAL: cranial nerve function from 2-12 intact intact, follows commands, speech not dysarthric Assessment/Plan Patient is 85 years old female with past history of nephrolithiasis, hypertension, hyperlipidemia, rectal prolapse status post colostomy, osteopenia, chronic cystitis presented hospital with right buttock pain with radiation to the right leg. Patient stated that she has been having these symptoms for past 2 days, she stated the pain 8 out of 10 exacerbated by movement. Patient denied any chest pain, palpitations, any shortness of breath. She states that she has increased urinary frequency. In ER patient was found to have fever of 100 Fahrenheit, no leukocytosis, UA shows pyuria. CTA showed No evidence for pulmonary embolus. No acute mediastinal or pleural parenchymal process. CT abdomen pelvis showed Renal hypodensities compatible with cysts up to 2.2 cm. No ascites, focal inflammatory stranding, adenopathy or free air. Problems UTI (urinary tract infection) Urinalysis shows pyuria There is concern for acute pyelonephritis given fever and pyuria Continue ceftriaxone IV blood culture negative, urine culture pending Back pain with sciatica Improved Most like a patient developed right-sided sciatica pain given symptoms exacerbated with right leg elevation and tenderness over the piriformis area Pain management PT/OT Hypertension Blood pressures under control Continue home meds Hyperlipidemia Continue statin Acute diastolic CHF exacerbation BNP elevated to 882 with a leg swelling I's and O's Cardiac diet Lasix IV Echo VS,Fishbone, I+O VS, Fishbone, I+O Laboratory Tests 01/04/21 05:37 Vital Signs Date Time Temp Pulse Resp B/P (MAP) Pulse Ox O2 Delivery O2 Flow Rate FiO2 01/04/21 10:15 117/78 01/04/21 06:00 99.8 79 18 93 01/03/21 17:45 Room Air I&O- Last 24 Hours up to 6 AM 01/04/21 06:00 Intake Total 1760 ml Output Total 250 ml Balance 1510 ml CLAUDIA JAMISON DO Jan 04, 2021 13:12
[2021-01-04 14:00] VITALS: BP 111/56
[2021-01-04] MEDS ORDERED: cefTRIAXone SOD 1 GM in D5W MINI-BAG PLUS 50 ML IV SCH (15:00)
[2021-01-04] MEDS ORDERED: ONDANSETRON 4MG/2ML VIAL IV PRN (16:25)
--- NOTE | 2021-01-04 17:42 | REP ---
INDICATION: possible fracture COMPARISON: None. TECHNIQUE: AP and frog-lateral views of the right femur. FINDINGS: Age-related osteopenia and degenerative changes at the hip and knee joint. No obvious acute fracture or dislocation is appreciated. No subcutaneous emphysema or foreign body identified. IMPRESSION: Osteopenia and degenerative changes. No obvious acute fracture or dislocation. <Electronically signed by Paddy Umana > 01/04/21 0440
--- NOTE | 2021-01-04 17:43 | REP ---
INDICATION: possible fracture. COMPARISON: None. TECHNIQUE: Single AP view of the pelvis FINDINGS: Age-related osteopenia and degenerative changes are noted. No obvious acute fracture or dislocation identified. No subcutaneous emphysema or foreign body. IMPRESSION: No obvious acute fracture or dislocation appreciated. <Electronically signed by Paddy Umana > 01/04/21 1170
[2021-01-04] MEDS: ROSUVASTATIN 10 MG TAB (CRESTOR) PO SCH (17:46)
[2021-01-04] MEDS: ACETAMINOPHEN TAB 650MG DOSE (2X325MG) PO PRN (17:46)
[2021-01-04] MEDS: LORATADINE 10 MG TAB PO SCH (17:46)
[2021-01-04 22:00] VITALS: BP 112/67
[2021-01-05] MEDS: FUROSEMIDE 40MG/4ML VIAL (J1940) IV SCH ×2 (01:52→09:48)
[2021-01-05 06:00] VITALS: BP 103/51
[2021-01-05 08:10] VITALS: BP 111/54
[2021-01-05 09:11] VITALS: BP 111/54
[2021-01-05] MEDS: LOSARTAN 50MG TABLET PO SCH (09:11)
[2021-01-05] MEDS: VITAMIN D 1,000 INTERNATIONAL UNITS TABLET PO SCH (09:11)
[2021-01-05] MEDS: ENOXAPARIN 40MG/0.4ML SYRINGE (J1650 PER 10MG) SC SCH (09:48)
[2021-01-05] MEDS ORDERED: TRAM50TA2 PO (10:29)
[2021-01-05] MEDS ORDERED: TORS5TAB2 PO (10:29)
[2021-01-05] MEDS ORDERED: ACET1TAB55 PO (10:29)
[2021-01-05] MEDS ORDERED: COZA50TA PO (10:29)
--- NOTE | 2021-01-05 14:11 | DS.PDOC ---
Discharge Summary General Date of Admission Jan 03, 2021 at 16:24 Date of Discharge 01/05/21 Discharge Summary PROCEDURES PERFORMED DURING STAY: [None]. ADMITTING DIAGNOSES: UTI (urinary tract infection) Back pain with sciatica Hypertension Hyperlipidemia Acute diastolic CHF exacerbation DISCHARGE DIAGNOSES: UTI (urinary tract infection) Back pain with sciatica Hypertension Hyperlipidemia Acute diastolic CHF exacerbation COMPLICATIONS/CHIEF COMPLAINT: UTI. HISTORY OF PRESENT ILLNESS: Patient is 85 years old female with past history of nephrolithiasis, hypertension, hyperlipidemia, rectal prolapse status post colostomy, osteopenia, chronic cystitis presented hospital with right buttock pain with radiation to the right leg. Patient stated that she has been having these symptoms for past 2 days, she stated the pain 8 out of 10 exacerbated by movement. Patient denied any chest pain, palpitations, any shortness of breath. She states that she has increased urinary frequency. In ER patient was found to have fever of 100 Fahrenheit, no leukocytosis, UA shows pyuria. CTA showed No evidence for pulmonary embolus. No acute mediastinal or pleural parenchymal process. CT abdomen pelvis showed Renal hypodensities compatible with cysts up to 2.2 cm. No ascites, focal inflammatory stranding, adenopathy or free air. HOSPITAL COURSE: During hospital stay following issues addressed UTI (urinary tract infection) Urinalysis shows pyuria There was concern for acute pyelonephritis given fever and pyuria Continue ceftriaxone IV blood culture negative, urine culture Escherichia coli pansensitive Back pain with sciatica Improved Most like a patient developed right-sided sciatica pain given symptoms exacerbated with right leg elevation and tenderness over the piriformis area Pain management PT/OT Hypertension Blood pressures under control Continue home meds Hyperlipidemia Continue statin Acute diastolic CHF exacerbation BNP elevated to 882 with a leg swelling I's and O's Cardiac diet Lasix IV Echo pending DISCHARGE MEDICATIONS: Please see below. ALLERGIES: Please see below. PHYSICAL EXAMINATION ON DISCHARGE: VITAL SIGNS: Please see below. GENERAL APPEARANCE: NAD HEENT: no scleral icterus, plus JVD, EOMI CARDIOVASCULAR: S1S2 LUNGS: Diminished lung sounds bilaterally ABDOMEN: soft & not tender w palpitation, colostomy in place, large left abdominal hernia MUSCULOSKELETAL: no cyanosis, +1 leg swelling bilaterally INTEGUMENT: no generalized pallor NEUROLOGICAL: cranial nerve function from 2-12 intact intact, follows commands, speech not dysarthric LABORATORY DATA: Please see below. IMAGING: chest pain COMPARISON: None. TECHNIQUE: Axial contrast enhanced images from the thoracic inlet to the upper abdomen using pulmonary embolus technique with multiplanar re-formations. 100 ml Isovue 370 intravenous contrast material administered without complication. This CT examination was performed using the following dose reduction techniques: Automated exposure control, adjustment of mA and/or kv according to the patient's size, and use of iterative reconstruction technique. FINDINGS: Satisfactory enhancement of the pulmonary vasculature is achieved and no filling defects are identified to suggest pulmonary embolus. Further evaluation of the mediastinum demonstrates normal thoracic aorta, heart and pericardium. The bilateral lung love are well aerated with subtle areas of linear scarring in the right midlung and right lower lobe region. No acute consolidation, effusion, or pneumothorax. Tracheobronchial tree is patent. No nodule or mass lesion is identified. No significant adenopathy noted. Surrounding musculoskeletal structures intact IMPRESSION: No evidence for pulmonary embolus. No acute mediastinal or pleural parenchymal process. <Electronically signed by Paddy Umana > 01/03/21 1336 DD: Paddy Umana MD 01/03/21 1333 DT: AMY 01/03/21 1335 PROGNOSIS: Fair ACTIVITY: [As tolerated]. DIET: Cardiac DISPOSITION: 01 Home, Self-Care. ITEMS TO FOLLOWUP ON ON OUTPATIENT: Follow-up with PCP in 3-5 days DISCHARGE CONDITION: [Stable]. TIME SPENT ON DISCHARGE: 40 minutes. Vital Signs/I&Os Vital Signs Date Time Temp Pulse Resp B/P (MAP) Pulse Ox O2 Delivery O2 Flow Rate FiO2 01/05/21 09:11 111/54 01/05/21 08:10 99.0 80 20 94 Room Air I&O- Last 24 Hours up to 6 AM 01/05/21 06:00 Intake Total 1080 ml Output Total 1250 ml Balance -170 ml Laboratory Data Labs 24H Laboratory Tests 2 01/04/21 19:23: Methicillin-Resist S.aureus DNA PCR DETECTEDA Microbiology Microbiology 01/03/21 Urine Culture - Final, Complete Escherichia Coli 01/03/21 Respiratory Virus Panel (PCR) (ALESSANDRO) - Final, Complete 01/03/21 Blood Culture - Preliminary, Resulted No Growth after 48 hours. All Specime... 01/03/21 Blood Culture - Preliminary, Resulted No Growth after 48 hours. All Specime... Discharge Medications Scheduled Calcium Carbonate (Calcium) 600 Mg Tablet, 600 MG PO DAILY, (Reported) Cholecalciferol (Vitamin D3) (Vitamin D3) 1,000 Unit Tablet, 2,000 UNITS PO DAILY, (Reported) Loratadine (Loratadine) 10 Mg Tablet, 10 MG PO QPM, (Reported) Losartan Potassium (Cozaar) 50 Mg Tablet, 100 MG PO DAILY Multivitamins (Thera M Plus Tablet) 1 Each Tablet, 1 TAB PO DAILY, (Reported) Rosuvastatin Calcium (Crestor) 10 Mg Tab, 10 MG PO QPM, (Reported) Torsemide (Torsemide) 5 Mg Tablet, 5 MG PO DAILY Scheduled PRN Acetaminophen (Acetaminophen) 325 Mg Tablet, 650 MG PO Q4H PRN for PAIN OR FEVER Tramadol HCl (Tramadol HCl) 50 Mg Tablet, 50 MG PO Q6HP PRN for SEVERE PAIN Allergies Coded Allergies: No Known Allergies (Unverified , 05/18/13) CLAUDIA JAMISON DO Jan 05, 2021 14:11
--- NOTE | 2021-01-06 09:14 | ECHO ---
ECHOCARDIOGRAM DATE OF PROCEDURE: 01/04/2021 Age: 85 Gender: Female Height: 165 cm Weight: 93 kg REFERRING PHYSICIAN: Francis Harding DO INDICATION: Heart failure, unspecified. MEASUREMENTS: 2D Measurements: Aortic annulus 2.0 cm Intraventricular septum 0.97 cm Posterior wall 1.04 cm Left ventricle diastole 4.7 cm Left ventricle systole 3.7 cm Aortic root 3.3 cm Left atrium 4.7 cm Proximal ascending aorta 3.3 cm Inferior vena cava 2.4 cm (more than 50% respiratory variation) Left atrial volume index 29. Doppler Measurements: Moderate aortic valve stenosis No aortic regurgitation Aortic valve velocity 357 cm/s Peak aortic valve gradient 51 mmHg Mean aortic valve gradient 31 mmHg Aortic valve area (continuity equation 0.98 cm2) Aortic stenosis dimensionless index 0.31 LVOT velocity 114 cm/s LVOT VTI 24.6 cm No mitral stenosis No mitral regurgitation Mitral E velocity 112 cm/s Mitral A velocity 108 cm/s Mitral deceleration time 204 msec Mild tricuspid regurgitation Estimated right ventricular systolic pressure 49-54 mmHg Estimated right atrial pressure 5-10 mmHg No pulmonic regurgitation MITRAL ANNULAR TISSUE DOPPLER E prime septal 8.7 cm/s, E prime lateral 8.2 cm/s DESCRIPTION: Rhythm was sinus. This was a moderately technically difficult echocardiogram. No pericardial effusion. This was a 2D, M-mode, color flow Doppler, and pulsed wave Doppler examination including mitral annular tissue Doppler. CONCLUSIONS: 1. Moderate focal thickening and focal calcific deposits of a 3-cuspid aortic valve. Moderate aortic stenosis. No aortic regurgitation. 2. Normal left ventricular internal dimensions and wall thickness. Normal regional LV wall motion and wall thickening. Normal LV systolic function. LVEF 70% by visual estimate. Probably grade 2 LV diastolic dysfunction (pseudonormal LV diastolic filling pattern). 3. Moderate mitral annular calcification. No mitral stenosis or regurgitation. 4. Mild left atrial dilatation by left atrial volume index. 5. Suggestive of moderate elevation of estimated right ventricle systolic pressure (49-54 mmHg). Normal right ventricle size with hyperdynamic LV systolic function. 6. No pericardial effusion.
== END 2021-01-05 12:04 | disposition home health service (06) | DRG 689 ==
LOC: EDSEX 11:15 → EDBD 11:15 → M ED 11:15 → M ED INP 16:24 → ENRESERV 17:12 → M MSPAV 17:53
PROVIDERS: ADMIT Internal Medicine; ATTEND Internal Medicine
DX: N39.0 Urinary tract infection, site not specified (principal); I50.33 Acute on chronic diastolic (congestive) heart failure; I11.0 Hypertensive heart disease with heart failure; M54.40 Lumbago with sciatica, unspecified side; E78.5 Hyperlipidemia, unspecified; Z79.899 Other long term (current) drug therapy; B96.29 Other Escherichia coli [E. coli] as the cause of diseases classified elsewhere

== ENCOUNTER → 2021-01-09 | Outpatient (REF) | payer OTHER, MEDICAID ==
[~2021-01-09] MED LIST changes: +ACET1TAB55 PO; +ALDA25TA2 PO; +AMIO200T49 PO; +AMOX500T PO; +CALC600T60 PO; +CALCD50TA PO; +COZA50TA PO; +D31000TA2 PO; +ELIQ5TAB PO; +LORA-674 PO; +LOSA100T45 PO; +METO1TAB7 PO; +PANT40TA29 PO; +SUCR1ORA PO; +TIZA2TA PO; +TORS5TAB2 PO; +TRAM50TA2 PO; +VITMTA PO
[2021-01-09 17:20] LABS: HEMATOCRIT 33.8 % (36.0-47.0); HEMOGLOBIN 11.1 g/dl (12.0-15.5); MEAN CORPUSCULAR HEMOGLOBIN 28.9 pg (27.0-33.0); MEAN CORPUSCULAR HGB CONC 32.8 g/dl (32.0-36.5); PLATELET COUNT, AUTOMATED 156 10^3/uL (150-450); RED BLOOD COUNT 3.84 10^6/uL (4.00-5.40)
[2021-01-09 17:37] LABS: WHITE BLOOD COUNT 13.1 10^3/uL (4.0-10.0)
[2021-01-09 18:28] LABS: ALBUMIN 3.4 GM/DL (3.2-5.2); ALT/SGPT 113 U/L (12-78); BILIRUBIN,TOTAL 0.7 MG/DL (0.2-1.0); BLOOD UREA NITROGEN 31 MG/DL (7-18); CALCIUM LEVEL 8.7 MG/DL (8.8-10.2); CARBON DIOXIDE LEVEL 28 MEQ/L (21-32); CHLORIDE LEVEL 99 MEQ/L (98-107); CREATININE FOR GFR 0.91 MG/DL (0.55-1.30); GLOMERULAR FILTRATION RATE > 60.0 (>32); GLUCOSE, FASTING 100 MG/DL (70-100); NT-PRO BNP 847 PG/ML (<450); POTASSIUM SERUM 3.8 MEQ/L (3.5-5.1); SODIUM LEVEL 136 MEQ/L (136-145); TOTAL PROTEIN 6.4 GM/DL (6.4-8.2)
[2021-01-09 19:31] LABS: ATYPICAL LYMPH 20 % (0-5); LYMPHOCYTES 18 % (16-44); MONOCYTES 7 % (0-5); NEUTROPHILS 54 % (28-66); PLATELET ESTIMATE NORMAL (NORMAL)
== END ==
LOC: M SFHCPLAZ 15:06
PROVIDERS: ATTEND Physician Assistant Medical
DX: I50.9 Heart failure, unspecified (principal); N30.00 Acute cystitis without hematuria; I11.0 Hypertensive heart disease with heart failure
CPT/HCPCS: 36415; 80053; 83880; 85025; 86140; 99496; G0463

== ENCOUNTER 2021-01-18 18:19 | Inpatient (IN) | payer OTHER, MEDICAID ==
[~2021-01-18] VITALS: Ht 165.1 cm; Wt 95.2 kg
[~2021-01-18 18:19] MED LIST changes: -ALDA25TA2 PO; -AMIO200T49 PO; -AMOX500T PO; +AMOXICILLIN 500 MG CAP PO SCH; -CALCD50TA PO; -ELIQ5TAB PO; -LOSA100T45 PO; -METO1TAB7 PO; -PANT40TA29 PO; -SUCR1ORA PO; -TIZA2TA PO
[2021-01-18] MEDS ORDERED: AMOX500T PO (18:35)
[2021-01-18 19:17] LABS: BASO % 0.4 % (0.0-1.0); HEMATOCRIT 37.5 % (36.0-47.0); HEMOGLOBIN 12.3 g/dl (12.0-15.5); LYMPH # 1.8 10^3/uL (1.5-5.0); LYMPH % 21.5 % (24.0-44.0); MEAN CORPUSCULAR HEMOGLOBIN 29.1 pg (27.0-33.0); MEAN CORPUSCULAR HGB CONC 32.8 g/dl (32.0-36.5); MEAN CORPUSCULAR VOLUME 88.9 fl (80.0-96.0); MONO # 1.5 10^3/uL (0.0-0.8); MONO % 17.4 % (2.0-8.0); NEUTROPHILS # 5.1 10^3/uL (1.5-8.5); PLATELET COUNT, AUTOMATED 163 10^3/uL (150-450); RED BLOOD COUNT 4.22 10^6/uL (4.00-5.40)
[2021-01-18 19:20] LABS: WHITE BLOOD COUNT 8.5 10^3/uL (4.0-10.0)
[2021-01-18] MEDS ORDERED: ACETAMINOPHEN 325 MG TAB PO ONE (19:25)
--- NOTE | 2021-01-18 19:25 | REP ---
INDICATION: DYSPNEA/COUGH. COMPARISON: Multiple the latest 01/03/2021 TECHNIQUE: Portable FINDINGS: The technique utilized in obtaining the radiograph has magnified the cardiac silhouette and accentuated the interstitial markings. There is cardiomegaly accentuated by technique status quo. The lung love are stable. No acute patchy parenchymal opacities or pleural effusions have developed. There is no change in the osseous structures. IMPRESSION: Cardiomegaly. No acute disease or significant change compared to the prior exam. <Electronically signed by Robin Gould > 01/18/211920
[2021-01-18 19:40] LABS: ALBUMIN 3.6 GM/DL (3.2-5.2); ALT/SGPT 39 U/L (12-78); BILIRUBIN,DIRECT 0.3 MG/DL (0.0-0.2); BLOOD UREA NITROGEN 16 MG/DL (7-18); CALCIUM LEVEL 8.5 MG/DL (8.8-10.2); CARBON DIOXIDE LEVEL 24 MEQ/L (21-32); CHLORIDE LEVEL 102 MEQ/L (98-107); CK-MB VALUE MASS < 1.0 NG/ML (<3.6); CPK CREATINE PHOSPHOKINASE 57 U/L (26-192); CREATININE FOR GFR 0.81 MG/DL (0.55-1.30); GLOMERULAR FILTRATION RATE > 60.0 (>32); GLUCOSE, FASTING 119 MG/DL (70-100); MB/CK RELATIVE INDEX 1.75 (< OR =4); NT-PRO BNP 704 PG/ML (<450); POTASSIUM SERUM 4.1 MEQ/L (3.5-5.1); SODIUM LEVEL 134 MEQ/L (136-145); TOTAL PROTEIN 7.3 GM/DL (6.4-8.2); TROPONIN I < 0.02 NG/ML (< 0.10)
[2021-01-18] MEDS ORDERED: cefTRIAXone SOD 1 GM in D5W MINI-BAG PLUS 50 ML IV ONE (19:45)
[2021-01-18] MEDS ORDERED: NS 500 ML IV ONE (19:55)
--- NOTE | 2021-01-18 20:51 | REPVR ---
PROCEDURE INFORMATION: Exam: CT Cervical Spine Without Contrast Exam date and time: 01/18/2021 7:50 PM Age: 85 years old Clinical indication: Injury or trauma; Fall; Blunt trauma TECHNIQUE: Imaging protocol: Computed tomography images of the cervical spine without contrast. Radiation optimization: All CT scans at this facility use at least one of these dose optimization techniques: automated exposure control; mA and/or kV adjustment per patient size (includes targeted exams where dose is matched to clinical indication); or iterative reconstruction. COMPARISON: CT ANGIO CHEST 01/03/2021 1:09 PM FINDINGS: Bones/joints: No acute fracture. Normal alignment. Discs/Spinal canal/Neural foramina: There is multilevel uncovertebral and facet hypertrophy with neural foramina narrowing. Multilevel degenerative disc disease. Lungs: Lung apices are normal. Soft tissues: Unremarkable. IMPRESSION: No acute abnormality. Electronically signed by: Juan Burgos On 01/18/2021 20:50:58 PM
--- NOTE | 2021-01-18 20:52 | REPVR ---
PROCEDURE INFORMATION: Exam: CT Head Without Contrast Exam date and time: 01/18/2021 7:50 PM Age: 85 years old Clinical indication: Injury or trauma; Fall; Blunt trauma (contusions or hematomas) TECHNIQUE: Imaging protocol: Computed tomography of the head without contrast. Radiation optimization: All CT scans at this facility use at least one of these dose optimization techniques: automated exposure control; mA and/or kV adjustment per patient size (includes targeted exams where dose is matched to clinical indication); or iterative reconstruction. COMPARISON: MRI-Brain without Contrast 03/22/2014 10:42 AM FINDINGS: Brain: There are moderate periventricular and subcortical lucencies consistent with chronic microvascular ischemic changes. The yusuf-white differentiation is maintained. No hemorrhage. No edema. Cerebral ventricles: No ventriculomegaly. Paranasal sinuses: Visualized sinuses are unremarkable. No fluid levels. Mastoid air cells: Visualized mastoid air cells are well aerated. Orbital cavity: Bilateral cataract surgery. Bones/joints: Unremarkable. No acute fracture. Soft tissues: Unremarkable. IMPRESSION: No acute intracranial abnormality. Chronic microvascular ischemic changes. Electronically signed by: Juan Burgos On 01/18/2021 20:52:38 PM
--- NOTE | 2021-01-18 20:54 | REPVR ---
PROCEDURE INFORMATION: Exam: XR Right Knee Exam date and time: 01/18/2021 7:57 PM Age: 85 years old Clinical indication: Other: Fall TECHNIQUE: Imaging protocol: XR Right knee. Views: 1 or 2 views. COMPARISON: US Duplex, Ext LOWER veins, bilat 01/03/2021 1:38 PM FINDINGS: Bones/joints: Diffuse demineralization of the bones. Degenerative changes of the tricompartmental knee joint. Soft tissues: Normal. IMPRESSION: No acute abnormality. Electronically signed by: Juan Burgos On 01/18/2021 20:54:39 PM
--- NOTE | 2021-01-18 20:54 | REPVR ---
PROCEDURE INFORMATION: Exam: XR Pelvis Exam date and time: 01/18/2021 7:57 PM Age: 85 years old Clinical indication: Other: Fall TECHNIQUE: Imaging protocol: XR pelvis. Views: 1 or 2 view. COMPARISON: CR Pelvis, complete 01/04/2021 4:52 PM FINDINGS: Bones/joints: Degenerative changes of bilateral hip joints and visualized lumbar spine. No acute fracture. Soft tissues: Unremarkable. IMPRESSION: No acute abnormality. Electronically signed by: Juan Burgos On 01/18/2021 20:53:49 PM
[2021-01-18] MEDS ORDERED: LOSA100T50 PO (23:20)
[2021-01-18] MEDS ORDERED: MOM 30ML SUSPENSION UDC PO PRN (23:20)
[2021-01-18] MEDS ORDERED: MAALOX 30 ML SUSP *UDC PO PRN (23:20)
[2021-01-18] MEDS ORDERED: TORS5TAB2 PO (23:20)
[2021-01-18] MEDS ORDERED: TRAM50TA2 PO (23:21)
[2021-01-18] MEDS ORDERED: TIZA2TA PO (23:22)
[2021-01-18] MEDS ORDERED: ACET1TAB55 PO (23:31)
--- NOTE | 2021-01-18 23:31 | HPEPDOC ---
[facility] Medical History & Physical Date of Admission Jan 18, 2021 Date of Service: Jan 18, 2021 Primary Care Physician: Cornelia Cruz Attending Physician: KALE CHO MD History and Physical TIME OF SERVICE: 1150pm CHIEF COMPLAINT: weakness HISTORY OF PRESENT ILLNESS: is an 85 yr old F that was last admitted to our service from January 03 to for treatment UTI; she was also noted to have right sided sciatic. She reports being discharged home with PT and has been using a walker, which she did not need before her admission. According to the patients daughter after the patient was discharged she saw her PCP who started amoxicillin for recurrent UTI. Despite the antibiotic she has been experiencing nausea w/o vomiting, fever, back pain, lower abdominal pain close to the ostomy site, and having difficulties walking even with the walker. Unfortunately she had a fall last night, was unable to get help and remained on the floor for several hours before her family found her. REVIEW OF SYSTEMS: 10-point review of systems negative except as listed in HPI PAST MEDICAL/ SURGICAL HISTORY: essential HTN / chronic HFpEF, chronic microvascular ischemic disease, osteopenia, DLP, nephrolithiasis, recurrent UTIs, diverticulosis, Sciatica, rectal prolapse repair, hysterectomy, appendectomy, placement of colostomy SOCIAL HISTORY: she doesnt smoke, drink or use recreational drugs FAMILY HISTORY: Father DKA / Mother Colon cancer / siblings lung cancer, CVA, MA /son CAD ALLERGIES: Please see below. HOME MEDICATIONS: Please see below. PHYSICAL EXAMINATION: Vital Signs Date Time Temp Pulse Resp B/P (MAP) Pulse Ox O2 Delivery O2 Flow Rate FiO2 01/18/21 18:19 99.8 87 24 147/65 (92) 96 Room Air GENERAL APPEARANCE: well-nourished and developed / slightly anxious HEENT: EOMI / MMM&P CARDIOVASCULAR: RRR/NMRG / trace LE edema LUNGS: CTAB on RA ABDOMEN: contour obese / soft & NT w palpation at the right upper quadrant and lower quadrants MUSCULOSKELETAL: NCAT / KAREN x 4 INTEGUMENT: not flushed / no rashes / not cyanotic NEUROLOGICAL: CN 2-12 intact / speech not dysarthric PSYCHIATRIC: A&O x3 LABORATORY DATA: Immature Granulocyte % (Auto) 0.7, Neutrophils (%) (Auto) 60.0, Lymphocytes (%) (Auto) 21.5L, Monocytes (%) (Auto) 17.4H, Eosinophils (%) (Auto) 0.0, Basophils (%) (Auto) 0.4, Neutrophils # (Auto) 5.1, Lymphocytes # (Auto) 1.8, Monocytes # (Auto) 1.5H, Eosinophils # (Auto) 0.0, Basophils # (Auto) 0.0, Nucleated Red Blood Cells % (auto) 0.0, Anion Gap 8, Glomerular Filtration Rate > 60.0, Calcium Level 8.5L, Magnesium Level 2.0, Total Bilirubin 1.0, Direct Bilirubin 0.3H, Aspartate Amino Transf (AST/SGOT) 24, Alanine Aminotransferase (ALT/SGPT) 39, Alkaline Phosphatase 107, Total Creatine Kinase 57, Creatine Kinase MB < 1.0, Creatine Kinase MB Relative Index 1.75, Troponin I < 0.02, FC-Izm-[id number]-Type Natriuretic Peptide 704H, Total Protein 7.3, Albumin 3.6, Albumin/Globulin Ratio 1.0L 01/18/21 21:31: Urine Color YELLOW, Urine Appearance HAZY, Urine pH 5.0, Urine Specific [place] 1.020, Urine Protein 2+H, Urine Glucose (UA) NEGATIVE, Urine Ketones TRACEH, Urine Blood 3+H, Urine Nitrite NEGATIVE, Urine Bilirubin NEGATIVE, Urine Urobilinogen 0.2, Urine Leukocyte Esterase NEGATIVE, Urine WBC (Auto) 5H, Urine RBC (Auto) 4H, Urine Hyaline Casts (Auto) 0, Urine Bacteria (Auto) NEGATIVE, Urine Squamous Epithelial Cells 6, Urine Amorphous Sediment SMALLH, Urine Mucus (Auto) SMALL, Urine Sperm (Auto) IMAGING: Chest xray Cardiomegaly. No acute disease or significant change compared to the prior exam. CT cervical spine No acute abnormality. CT head No acute intracranial abnormality. Chronic microvascular ischemic changes. Knee xray No acute abnormality. Pelvis xray No acute abnormality. MICROBIOLOGY: respiratory panel neg / blood cx pending... ASSESSMENT: is an 85 yr old w essential HTN / HFpEF, chronic microvascular ischemic disease, osteopenia, DLP, nephrolithiasis, recurrent UTIs, diverticulosis, & Sciatica who is admitted for fever, hypotension, abdominal pain & fall likely 2/2 deconditioning. PLAN: 1 Fever Cause TBD (the UA, chest xray and respiratory panel are unrevealing) TMax 102 / she doesnt meet SIRS Plan: admit to medical floor /monitor vitals /c/w amoxicillin ordered by PCP for UTI until the course has been completed / f/u CT abdomen/pelvis & blood cx, if they are negative and she continues to have fevers the day time team may consider LP because she is c/o back pain 2 Hypotension She has a hx of essential HTN, but her BP has dropped from 147/65 to 91/45 while in the ER Plan: 500ml IVF / hold Losartan & Torsemide 3 Abdominal Pain plan; f/u CT abdomen and pelvis 4 Fall likely due to deconditioning She likely lost muscle during her recent hospitalization but we will need to r/o orthostatic hypotension & subacute CVA Plan: orthostats / fall precautions/ f/u MRI of brain / the day time team may consider PT/OT consults 5 Back pain possibly due to Sciatica Plan: acetaminophen, tramadol & Flector patch 6 Chronic HFpEF Euvolemic Plan: monitor weight / resume torsemide if BP permits 7 Class 1 Obesity Complicates care DVT px w Lovenox (Frank score is 5 points therefore pharmacological px is indicated) Dispo: home w rehab vs ARU / anticipate less than 2 midnight's stay Home Medications Scheduled Amoxicillin (Amoxicillin) 500 Mg Tablet, 500 MG PO TID started 01/11/21 x 7 days Calcium Carbonate (Calcium) 600 Mg Tablet, 600 MG PO DAILY Cholecalciferol (Vitamin D3) (Vitamin D3) 1,000 Unit Tablet, 2,000 UNITS PO DAILY Losartan Potassium (Losartan Potassium) 100 Mg Tablet, 100 MG PO DAILY Multivitamins (Thera M Plus Tablet) 1 Each Tablet, 1 TAB PO DAILY Rosuvastatin Calcium (Crestor) 10 Mg Tab, 10 MG PO QPM Torsemide (Torsemide) 5 Mg Tablet, 5 MG PO DAILY Scheduled PRN Acetaminophen (Acetaminophen) 325 Mg Tablet, 650 MG PO Q4-6HP PRN for pain or fever Tramadol HCl (Tramadol HCl) 50 Mg Tablet, 50 MG PO Q6H PRN for pain Allergies Coded Allergies: No Known Allergies (Unverified , 05/18/13) A-FIB/CHADSVASC A-FIB History Current/History of A-Fib/PAF?: No Current PO Anticoag Therapy: No KALE CHO MD Jan 18, 2021 23:31
[2021-01-19] MEDS ORDERED: traMADol 50 MG TAB PO PRN (01:20)
[2021-01-19] MEDS ORDERED: NS 500 ML IV SCH (02:15)
[2021-01-19] MEDS ORDERED: DICLOFENAC EPOLAMINE 1.3 % PATCH TOP PRN (02:20)
[2021-01-19 03:00] VITALS: BP 135/63
[2021-01-19 06:00] VITALS: BP 157/79
[2021-01-19 06:03] VITALS: BP_SYST 144; BP_SYST 155; BP_DIAS 66; BP_DIAS 67
[2021-01-19 06:48] LABS: HEMOGLOBIN 12.1 g/dl (12.0-15.5); MEAN CORPUSCULAR HEMOGLOBIN 29.1 pg (27.0-33.0); MEAN CORPUSCULAR HGB CONC 32.7 g/dl (32.0-36.5); MEAN CORPUSCULAR VOLUME 88.9 fl (80.0-96.0); PLATELET COUNT, AUTOMATED 120 10^3/uL (150-450); RED BLOOD COUNT 4.16 10^6/uL (4.00-5.40); WHITE BLOOD COUNT 7.4 10^3/uL (4.0-10.0)
[2021-01-19] MEDS: GASTROGRAFIN SOLUTION 30ML PO SCH ×2 (07:02→07:45)
[2021-01-19 07:16] LABS: BLOOD UREA NITROGEN 15 MG/DL (7-18); CALCIUM LEVEL 8.5 MG/DL (8.8-10.2); CARBON DIOXIDE LEVEL 25 MEQ/L (21-32); CHLORIDE LEVEL 105 MEQ/L (98-107); CREATININE FOR GFR 0.75 MG/DL (0.55-1.30); GLOMERULAR FILTRATION RATE > 60.0 (>32); GLUCOSE, FASTING 108 MG/DL (70-100); POTASSIUM SERUM 4.5 MEQ/L (3.5-5.1); SODIUM LEVEL 135 MEQ/L (136-145)
--- NOTE | 2021-01-19 08:01 | ECGEPIP ---
[facility] - ED Test Date: 2021-01-18 Pat Name: DEAN GARCIA Department: Room: [place] [address] Gender: Female Client Onboarding Analyst: GLENN : 1935 Requested By: Kelle Olson Order Number: [id number] Reading MD: Guille Coronel Measurements Intervals [place] Rate: 77 P: 53 [place]: 150 QRS: 51 QRSD: 78 T: 55 QT: 378 QTc: 427 Interpretive Statements Normal sinus rhythm Nonspecific ST-T wave abnormalities Similar to tracing done 01-03-21 Electronically Signed on 01-19-2021 8:00:41 EDT by Guille Coronel
[2021-01-19] MEDS ORDERED: ISOVUE-370 76% 100ML VIAL As Ordered ONE (08:20)
--- NOTE | 2021-01-19 08:59 | REP ---
INDICATION: abdominal pain and fever. COMPARISON: 01/03/2021 the latest and only prior TECHNIQUE: Standard helical technique after the intravenous administration of 100 cc Isovue 370 and oral bowel preparatory contrast administration FINDINGS: There is no significant change in the lung bases. The liver, gallbladder, spleen, pancreas, adrenal glands, and kidneys are unchanged. There are bilateral renal cysts status quo. The abdominal aorta and para-aortic regions are unchanged. There is a small hiatal hernia status quo. There is no significant change in appearance of the bowel loops or the mesenteries. There is an unchanged peristomal hernia on the left within which there are multiple bowel loops. There is no intestinal obstruction or abnormal bowel wall thickening. There is no change in the osseous structures. IMPRESSION: No significant change when compared to the prior exam with findings as described above. <Electronically signed by Robin Gould > 01/19/21 0870
[2021-01-19] MEDS ORDERED: LOSARTAN 50MG TABLET PO SCH (09:00)
[2021-01-19] MEDS ORDERED: AMOXICILLIN 500 MG CAP PO SCH (09:00)
[2021-01-19] MEDS ORDERED: TORSEMIDE 10 MG TABLET PO SCH (09:00)
[2021-01-19] MEDS: ENOXAPARIN 40MG/0.4ML SYRINGE (J1650 PER 10MG) SC SCH (10:46)
[2021-01-19] MEDS: CALCIUM/VITAMIN D 500 MG TAB PO SCH (10:46)
[2021-01-19] MEDS: ONDANSETRON 4MG/2ML VIAL IV PRN (10:49)
[2021-01-19] MEDS: PANTOPRAZOLE 40MG TAB (PROTONIX) PO SCH (13:40)
[2021-01-19 14:00] VITALS: BP 151/75
--- NOTE | 2021-01-19 14:15 | IPNPDOC ---
Subjective Date Seen The patient was seen on 01/19/21. Subjective Chief Complaint/HPI Mrs. Araujo is an 85 year old female with colostomy bag and sciatic who is here for weakness, fall, and abdominal pain. She was seen this morning after she had taken her oral contrast for CT abd/pelvis. He reported diffuse ache and nausea. CT abd/pelvis resulted without any significant change since 01/03/21 image. Objective Physical Examination General Exam: Positive: Cooperative Eye Exam: Negative: Sclera icteric Neck Exam: Positive: Supple Chest Exam: Positive: Clear to auscultation Heart Exam: Positive: Rate Normal, Regular Rhythm Abdomen Exam: Positive: Normal bowel sounds, Soft Extremity Exam: Positive: Edema (mild) Psych Exam: Positive: Other (Uncomfortable) Assessment /Plan Assessment Mrs. Araujo is an 85 year old female with colostomy bag and sciatic who is here for weakness, fall, and abdominal pain. Imaging did not demonstrate any acute intraabdominal pathology. Will add on Carafate and Protonix. Otherwise patient had a fever on admission without tachycardia. Patient was continued on amox icillin. Pending blood culture results. Patient had a fall and was not able to get up. Will order PT/OT Plan/VTE VTE Prophylaxis Ordered?: Yes Plan 1. Fever -Unclear etiology, but patient did not meet SIRS criteria -No tachycardia with fever -Pending blood culture results -Continue amoxicillin 2. Nausea and abdominal pain -CT abd/pelvis negative -Ordered for Carafate and Protonix 3. Fall 2/2 deconditioning -Reported PT/OT 4. Back pain 2/2 sciatica -Continue acetaminophen, tramadol, and Flector patch 5. Chronic HFpEF -Not decompensated -Continue torsemide 6. Obesity -BMI 33.6 -Complicates care 7. DVT ppx -Lovenox Disposition: Pending clinical improvement and PT/OT. VS, I&O, 24H, Fishbone Vital Signs/I&O Vital Signs Date Time Temp Pulse Resp B/P (MAP) Pulse Ox O2 Delivery O2 Flow Rate FiO2 01/19/21 06:03 78 155/67 (96) 76 144/66 (92) 01/19/21 06:00 97.0 18 97 Room Air I&O- Last 24 Hours up to 6 AM 01/19/21 06:00 Intake Total 655 ml Balance 655 ml Laboratory Data 24H LABS Laboratory Tests 2 01/18/21 18:48: Immature Granulocyte % (Auto) 0.7, Neutrophils (%) (Auto) 60.0, Lymphocytes (%) (Auto) 21.5L, Monocytes (%) (Auto) 17.4H, Eosinophils (%) (Auto) 0.0, Basophils (%) (Auto) 0.4, Neutrophils # (Auto) 5.1, Lymphocytes # (Auto) 1.8, Monocytes # (Auto) 1.5H, Eosinophils # (Auto) 0.0, Basophils # (Auto) 0.0, Nucleated Red Blood Cells % (auto) 0.0, Anion Gap 8, Glomerular Filtration Rate > 60.0, Calcium Level 8.5L, Magnesium Level 2.0, Total Bilirubin 1.0, Direct Bilirubin 0.3H, Aspartate Amino Transf (AST/SGOT) 24, Alanine Aminotransferase (ALT/SGPT) 39, Alkaline Phosphatase 107, Total Creatine Kinase 57, Creatine Kinase MB < 1.0, Creatine Kinase MB Relative Index 1.75, Troponin I < 0.02, ZI-Zyx-[id number]-Type Natriuretic Peptide 704H, Total Protein 7.3, Albumin 3.6, Albumin/Globulin Ratio 1.0L 01/18/21 21:31: Urine Color YELLOW, Urine Appearance HAZY, Urine pH 5.0, Urine Specific [place] 1.020, Urine Protein 2+H, Urine Glucose (UA) NEGATIVE, Urine Ketones TRACEH, Urine Blood 3+H, Urine Nitrite NEGATIVE, Urine Bilirubin NEGATIVE, Urine Urobilinogen 0.2, Urine Leukocyte Esterase NEGATIVE, Urine WBC (Auto) 5H, Urine RBC (Auto) 4H, Urine Hyaline Casts (Auto) 0, Urine Bacteria (Auto) NEGATIVE, Urine Squamous Epithelial Cells 6, Urine Amorphous Sediment SMALLH, Urine Mucus (Auto) SMALL, Urine Sperm (Auto) 01/19/21 05:52: Nucleated Red Blood Cells % (auto) 0.0, Anion Gap 5L, Glomerular Filtration Rate > 60.0, Calcium Level 8.5L CBC/BMP Laboratory Tests 01/18/21 18:48 01/19/21 05:52 Microbiology Microbiology 01/18/21 Respiratory Virus Panel (PCR) ([facility]) - Final, Complete 01/18/21 Blood Culture, Received Pending 01/18/21 Blood Culture, Received Pending KATE RICH 19, 2021 13:30
[2021-01-19] MEDS: TORSEMIDE 10 MG TABLET PO SCH (15:23)
[2021-01-19] MEDS ORDERED: guaiFENesin SYRUP 200 MG/10 ML UDC PO PRN (15:40)
[2021-01-19] MEDS: BENZONATATE 100 MG CAP PO SCH ×2 (17:11→20:03)
[2021-01-19] MEDS: SUCRALFATE SUSP 1GM/10ML UD PO SCH ×2 (17:11→20:03)
[2021-01-19] MEDS: ACETAMINOPHEN TAB 650MG DOSE (2X325MG) PO PRN (20:03)
[2021-01-19 22:00] VITALS: BP 122/58
[2021-01-20 06:00] VITALS: BP 137/62
[2021-01-20 06:30] LABS: MEAN CORPUSCULAR HEMOGLOBIN 28.4 pg (27.0-33.0); MEAN CORPUSCULAR HGB CONC 32.4 g/dl (32.0-36.5); MEAN CORPUSCULAR VOLUME 87.5 fl (80.0-96.0); PLATELET COUNT, AUTOMATED 122 10^3/uL (150-450); RED BLOOD COUNT 4.23 10^6/uL (4.00-5.40); WHITE BLOOD COUNT 8.4 10^3/uL (4.0-10.0)
[2021-01-20 06:56] LABS: ERYTHROCYTE SEDIMENTATION RATE 43 mm/hr (0-30)
[2021-01-20 07:04] LABS: BLOOD UREA NITROGEN 13 MG/DL (7-18); CARBON DIOXIDE LEVEL 25 MEQ/L (21-32); CHLORIDE LEVEL 103 MEQ/L (98-107); CREATININE FOR GFR 0.79 MG/DL (0.55-1.30); GLOMERULAR FILTRATION RATE > 60.0 (>32); GLUCOSE, FASTING 117 MG/DL (70-100); LIPASE 120 U/L (73-393); POTASSIUM SERUM 3.8 MEQ/L (3.5-5.1); SODIUM LEVEL 134 MEQ/L (136-145)
[2021-01-20] MEDS: SUCRALFATE SUSP 1GM/10ML UD PO SCH ×4 (09:02→20:59)
[2021-01-20] MEDS: CALCIUM/VITAMIN D 500 MG TAB PO SCH (09:03)
[2021-01-20] MEDS: TORSEMIDE 10 MG TABLET PO SCH (09:03)
[2021-01-20] MEDS: PANTOPRAZOLE 40MG TAB (PROTONIX) PO SCH (09:03)
[2021-01-20] MEDS: BENZONATATE 100 MG CAP PO SCH ×3 (09:03→20:59)
[2021-01-20] MEDS: ENOXAPARIN 40MG/0.4ML SYRINGE (J1650 PER 10MG) SC SCH (09:04)
--- NOTE | 2021-01-20 09:18 | IPNPDOC ---
Subjective Date Seen The patient was seen on 01/20/21. Subjective Chief Complaint/HPI Mrs. Araujo is an 85 year old female with colostomy bag and sciatic who is here for weakness, fall, and abdominal pain. She was seen this morning. Denies chest pain or dyspnea, but reports weakness and coughing when eating. She has not eaten much due to this cough. Will add on ST therapy. Otherwise, ESR and CRP are elevated, but procalcitonin is negative. UA not suspicious for infection, but does demonstrate hematuria. Will add on CPK Objective Physical Examination General Exam: Positive: Cooperative Eye Exam: Negative: Sclera icteric Neck Exam: Positive: Supple Chest Exam: Positive: Clear to auscultation Heart Exam: Positive: Rate Normal, Regular Rhythm Abdomen Exam: Positive: Normal bowel sounds, Soft Extremity Exam: Positive: Edema (mild) Psych Exam: Positive: Other (Uncomfortable) Assessment /Plan Assessment Mrs. Araujo is an 85 year old female with colostomy bag and sciatic who is here for weakness, fall, and abdominal pain. Imaging did not demonstrate any acute intraabdominal pathology. Patient tells me that her poor appetite and abdominal pain started after taking amoxicillin. It is possible that amoxicillin was causing adverse reaction. In addition, her fever was without tachycardia. Possibly beta lactam fever. Pending blood culture results. Patient had a fall and was not able to get up due to weakness. Will order PT/OT. Patient coughs after eating. Will order ST. Plan/VTE VTE Prophylaxis Ordered?: Yes Plan 1. Fever -Unclear etiology, but patient did not meet SIRS criteria -No tachycardia with fever -Possibly beta lactam fever -Pending blood culture results 2. Nausea and abdominal pain -CT abd/pelvis negative -Ordered for Carafate and Protonix -Possible adverse reaction to amoxicillin 3. Fall 2/2 deconditioning -Reported PT/OT 4. Back pain 2/2 sciatica -Continue acetaminophen, tramadol, and Flector patch 5. Chronic HFpEF -Not decompensated -Continue torsemide 6. Obesity -BMI 33.6 -Complicates care 7. Hematuria -Patient should have repeat UA for resolution. If no resolution, patient would need follow up with urologist outpatient 8. Cough with eating -Procalcitonin was negative -Possible dysphagia -Ordered for ST -Pending MRI brain 9. DVT ppx -Lovenox Disposition: Pending clinical improvement and PT/OT/ST. VS, I&O, 24H, Fishbone Vital Signs/I&O Vital Signs Date Time Temp Pulse Resp B/P (MAP) Pulse Ox O2 Delivery O2 Flow Rate FiO2 01/20/21 06:00 99.8 110 18 137/62 (87) 93 Room Air 01/19/21 20:00 2.0 I&O- Last 24 Hours up to 6 AM 01/20/21 05:59 Intake Total 2680 ml Output Total 350 ml Balance 2330 ml Laboratory Data 24H LABS Laboratory Tests 2 01/20/21 06:00: Nucleated Red Blood Cells % (auto) 0.0, Erythrocyte Sedimentation Rate 43H, Anion Gap 6L, Glomerular Filtration Rate > 60.0, Calcium Level 8.0L, C-Reactive Protein, Quantitative 13.00H, Lipase 120, Procalcitonin <0.05 CBC/BMP Laboratory Tests 01/20/21 06:00 Microbiology Microbiology 01/18/21 Respiratory Virus Panel (PCR) ([facility]) - Final, Complete 01/18/21 Blood Culture - Preliminary, Resulted No growth after 24 hours . All specim... 01/18/21 Blood Culture - Preliminary, Resulted No growth after 24 hours . All specim... KATE RICH DO Jan 20, 2021 09:18
[2021-01-20 09:45] LABS: CPK CREATINE PHOSPHOKINASE 50 U/L (26-192)
[2021-01-20] MEDS ORDERED: METOPROLOL TART 25 MG TABLET PO STA (13:21)
[2021-01-20 13:30] VITALS: BP 86/49
[2021-01-20 13:33] VITALS: BP 92/45
[2021-01-20] MEDS ORDERED: NS 1,000 ML IV ONE ×2 (13:35→15:05)
[2021-01-20 14:00] VITALS: BP 109/63
[2021-01-20 14:39] LABS: BASO # 0.1 10^3/uL (0.0-0.2); BASO % 0.6 % (0.0-1.0); EOS % 0.3 % (0.0-3.0); HEMATOCRIT 35.2 % (36.0-47.0); HEMOGLOBIN 11.5 g/dl (12.0-15.5); LYMPH # 2.8 10^3/uL (1.5-5.0); LYMPH % 29.1 % (24.0-44.0); MEAN CORPUSCULAR HEMOGLOBIN 28.8 pg (27.0-33.0); MEAN CORPUSCULAR HGB CONC 32.7 g/dl (32.0-36.5); MEAN CORPUSCULAR VOLUME 88.2 fl (80.0-96.0); MONO # 1.5 10^3/uL (0.0-0.8); MONO % 15.3 % (2.0-8.0); NEUTROPHILS # 5.3 10^3/uL (1.5-8.5); NEUTROPHILS % 54.1 % (36.0-66.0); PLATELET COUNT, AUTOMATED 117 10^3/uL (150-450); RED BLOOD COUNT 3.99 10^6/uL (4.00-5.40)
[2021-01-20 14:40] LABS: WHITE BLOOD COUNT 9.7 10^3/uL (4.0-10.0)
--- NOTE | 2021-01-20 14:42 | ECGEPIP ---
[facility] Test Date: 2021-01-20 Pat Name: DEAN GARCIA Department: Room: [place] [address] Gender: Female [id number] Developer: rai : 1935 Requested By: KATE Nolan Order Number: [id number] Reading MD: Lana Ledezma Measurements Intervals [place] Rate: 123 P: CT: QRS: 27 QRSD: 80 T: 46 QT: 320 QTc: 458 Interpretive Statements Atrial flutter with variable AV block SST Wave abnormality INCOMPLETE RIGHT BUNDLE BRANCH BLOCK LOW VOLT LIMB LEADS RYTHM CHANGE /STTWA NEW C/W 05/23/11 Electronically Signed on 01-20-2021 14:42:23 EDT by Lana Ledezma
[2021-01-20 15:14] LABS: BLOOD UREA NITROGEN 15 MG/DL (7-18); CALCIUM LEVEL 7.8 MG/DL (8.8-10.2); CARBON DIOXIDE LEVEL 25 MEQ/L (21-32); CHLORIDE LEVEL 102 MEQ/L (98-107); CREATININE FOR GFR 1.01 MG/DL (0.55-1.30); GLOMERULAR FILTRATION RATE 55.5 (>32); GLUCOSE, FASTING 140 MG/DL (70-100); MAGNESIUM LEVEL 1.9 MG/DL (1.8-2.4); POTASSIUM SERUM 3.5 MEQ/L (3.5-5.1); SODIUM LEVEL 134 MEQ/L (136-145); TROPONIN I < 0.02 NG/ML (< 0.10)
[2021-01-20] MEDS ORDERED: POTASSIUM CHLORIDE 10% LIQ 20 MEQ/15 ML UDC PO ONE (16:00)
[2021-01-20] MEDS ORDERED: METOPROLOL TART 25 MG TABLET PO SCH (16:00)
[2021-01-20 16:46] VITALS: BP 116/64
[2021-01-20] MEDS: NS 1,000 ML IV SCH (17:21)
[2021-01-20 22:00] VITALS: BP 101/58
[2021-01-21] MEDS: NS 1,000 ML IV SCH ×3 (02:32→20:21)
[2021-01-21 06:00] VITALS: BP 138/72
[2021-01-21 06:30] LABS: HEMATOCRIT 35.3 % (36.0-47.0); HEMOGLOBIN 11.6 g/dl (12.0-15.5); MEAN CORPUSCULAR HGB CONC 32.9 g/dl (32.0-36.5); MEAN CORPUSCULAR VOLUME 88.3 fl (80.0-96.0); PLATELET COUNT, AUTOMATED 132 10^3/uL (150-450); WHITE BLOOD COUNT 11.7 10^3/uL (4.0-10.0)
[2021-01-21 06:45] LABS: BLOOD UREA NITROGEN 14 MG/DL (7-18); CALCIUM LEVEL 7.5 MG/DL (8.8-10.2); CARBON DIOXIDE LEVEL 23 MEQ/L (21-32); CHLORIDE LEVEL 106 MEQ/L (98-107); CREATININE FOR GFR 0.72 MG/DL (0.55-1.30); GLOMERULAR FILTRATION RATE > 60.0 (>32); GLUCOSE, FASTING 92 MG/DL (70-100); POTASSIUM SERUM 3.9 MEQ/L (3.5-5.1); SODIUM LEVEL 137 MEQ/L (136-145)
[2021-01-21] MEDS ORDERED: METOPROLOL TART 25 MG TABLET PO ONE (08:00)
[2021-01-21] MEDS: SUCRALFATE SUSP 1GM/10ML UD PO SCH ×4 (08:09→20:20)
[2021-01-21] MEDS: CALCIUM/VITAMIN D 500 MG TAB PO SCH (08:09)
[2021-01-21] MEDS: TORSEMIDE 10 MG TABLET PO SCH (08:10)
[2021-01-21] MEDS: PANTOPRAZOLE 40MG TAB (PROTONIX) PO SCH (08:10)
[2021-01-21] MEDS: BENZONATATE 100 MG CAP PO SCH ×3 (08:10→20:21)
[2021-01-21] MEDS: ENOXAPARIN 100MG/1ML SYRINGE (J1650 PER 10MG) SC SCH ×2 (08:11→20:21)
--- NOTE | 2021-01-21 09:18 | REP ---
INDICATION: chest tightness/dyspnea. COMPARISON: Comparison chest x-ray January 18, 2021. TECHNIQUE: Portable upright AP chest radiograph. FINDINGS: Oxygen delivery tubing is seen. EKG monitoring electrodes are noted. The heart is enlarged unchanged. Pulmonary vasculature is cephalized. Right hemidiaphragm remains somewhat elevated.. No acute bony abnormality is seen. IMPRESSION: Cardiomegaly. Platelike atelectasis versus linear fibrosis again seen in the right base. Right hemidiaphragm is elevated as before.. <Electronically signed by Bennett Juárez > 01/21/21 0929
--- NOTE | 2021-01-21 09:38 | IPNPDOC ---
Subjective Date Seen The patient was seen on 01/21/21. Subjective Chief Complaint/HPI Mrs. Araujo is an 85 year old female with colostomy bag and sciatic who is here for weakness, fall, and abdominal pain and then found to have atrial fibrillation with RVR. This morning, she was not feeling well. She was having chest tightness and dyspnea. EKG demonstrated atrial fibrillation with RVR. CXR demonstrates cardiomegaly. Will start patient on metoprolol for rate control. Objective Physical Examination General Exam: Positive: Cooperative Eye Exam: Negative: Sclera icteric Neck Exam: Positive: Supple Chest Exam: Positive: Clear to auscultation Heart Exam: Positive: Rate Normal, Regular Rhythm Abdomen Exam: Positive: Normal bowel sounds, Soft Extremity Exam: Positive: Edema (mild) Psych Exam: Positive: Other (Uncomfortable) Assessment /Plan Assessment Mrs. Araujo is an 85 year old female with colostomy bag and sciatic who is here for weakness, fall, and abdominal pain. Imaging did not demonstrate any acute intraabdominal pathology. Patient tells me that her poor appetite and abdominal pain started after taking amoxicillin. It is possible that amoxicillin was causing adverse reaction. In addition, her fever was without tachycardia. Possibly beta lactam fever. Pending blood culture results. Patient had a fall and was not able to get up due to weakness. Will order PT/OT. Patient coughs after eating. Will order ST. On 01/20/21, patient went into atrial fibrillation with RVR. Discussed with patient and daughter about anticoagulation to prevent strokes and they were in agreement. Will start patient on Lovenox, then plan to transition to oral anticoagulation. Otherwise, ordered for echocardiogram. Plan/VTE VTE Prophylaxis Ordered?: Yes Plan 1. Atrial fibrillation with RVR -Monitor electrolytes -TSH within normal limits -Echocardiogram ordered (possible endocarditis given fever of unknown etiology?) -Will start metoprolol 25mg BID -Full dose Lovenox for stroke ppx. Can consider apixaban closer to discharge 2. Fever -Unclear etiology, but patient did not meet SIRS criteria -No tachycardia with fever -Possibly beta lactam fever -Pending blood culture results -Echocardiogram ordered 3. Nausea and abdominal pain -CT abd/pelvis negative -Ordered for Carafate and Protonix -Possible adverse reaction to amoxicillin 4. Fall 2/2 deconditioning -Reported PT/OT 5. Back pain 2/2 sciatica -Continue acetaminophen, tramadol, and Flector patch 6. Chronic HFpEF -Not decompensated -Continue torsemide 7. Obesity -BMI 33.6 -Complicates care 8. Hematuria -Patient should have repeat UA for resolution. If no resolution, patient would need follow up with urologist outpatient 9. Cough with eating -Procalcitonin was negative -Possible dysphagia -Ordered for ST -Pending MRI brain 10. DVT ppx -Lovenox Disposition: Pending improvement in heart rate, echocardiogram, and PT/OT/ST. VS, I&O, 24H, Fishbone Vital Signs/I&O Vital Signs Date Time Temp Pulse Resp B/P (MAP) Pulse Ox O2 Delivery O2 Flow Rate FiO2 01/21/21 08:10 109 140/85 01/21/21 06:00 98.3 18 94 Room Air 01/20/21 21:00 1.0 I&O- Last 24 Hours up to 6 AM 01/21/21 06:00 Intake Total 2355 ml Output Total 0 ml Balance 2355 ml Laboratory Data 24H LABS Laboratory Tests 2 01/20/21 14:20: Immature Granulocyte % (Auto) 0.6, Neutrophils (%) (Auto) 54.1, Lymphocytes (%) (Auto) 29.1, Monocytes (%) (Auto) 15.3H, Eosinophils (%) (Auto) 0.3, Basophils (%) (Auto) 0.6, Neutrophils # (Auto) 5.3, Lymphocytes # (Auto) 2.8, Monocytes # (Auto) 1.5H, Eosinophils # (Auto) 0.0, Basophils # (Auto) 0.1, Nucleated Red Blood Cells % (auto) 0.0, Anion Gap 7L, Glomerular Filtration Rate 55.5, Calcium Level 7.8L, Magnesium Level 1.9, Troponin I < 0.02, Thyroid Stimulating Hormone (TSH) 0.643 01/20/21 19:59: Troponin I < 0.02 01/21/21 05:42: Nucleated Red Blood Cells % (auto) 0.0, Anion Gap 8, Glomerular Filtration Rate > 60.0, Calcium Level 7.5L CBC/BMP Laboratory Tests 01/20/21 14:20 01/21/21 05:42 Microbiology Microbiology 01/18/21 Respiratory Virus Panel (PCR) ([facility]) - Final, Complete 01/18/21 Blood Culture - Preliminary, Resulted No Growth after 48 hours. All Specime... 01/18/21 Blood Culture - Preliminary, Resulted No Growth after 48 hours. All Specime... KATE RICH DO Jan 21, 2021 09:38
--- NOTE | 2021-01-21 12:40 | REPVR ---
PROCEDURE INFORMATION: Exam: MR Head Without Contrast Exam date and time: 01/21/2021 11:57 AM Age: 85 years old Clinical indication: Weakness, extremity; Bilateral; Patient HX: Weakness, frequent falls, ; additional info: Weakness / falls TECHNIQUE: Imaging protocol: MR of the head without contrast. COMPARISON: CT Head without contrast 01/18/2021 7:49 PM FINDINGS: Brain: There is no extra-axial collection or intra-axial mass. Mild diffuse volume loss is within the range of normal for patient age. There is increased T2/FLAIR white matter hyperintensity, nonspecific but typically small-vessel ischemia in this age group. There is no diffusion restriction. Cerebral ventricles: Normal. No ventriculomegaly. Bones/joints: Unremarkable. Paranasal sinuses: There is mild frontal, ethmoid and sphenoid sinus mucosal thickening. Mastoid air cells: Normal as visualized. No mastoid effusion. Orbital cavity: Unremarkable. Soft tissues: Unremarkable. IMPRESSION: No acute abnormality. Chronic changes. Electronically signed by: Barbara Powers On 01/21/2021 12:40:32 PM
[2021-01-21 14:00] VITALS: BP 103/58
[2021-01-21] MEDS: ACETAMINOPHEN TAB 650MG DOSE (2X325MG) PO PRN (16:27)
[2021-01-21] MEDS ORDERED: NS 250 ML IV ONE (20:40)
[2021-01-21] MEDS ORDERED: METOPROLOL TART 25 MG TABLET PO SCH (21:00)
--- NOTE | 2021-01-21 22:11 | IPNPDOC ---
Text Note Date of Service The patient was seen on 01/21/21. NOTE Rapid response was called at 1000PM because the patient had an acute onset ch fernando in mental status; her RN Corazon reported that she was last known well at approximately 9:15PM BP 99/69 / T 96 / HR 106 / O2 97% on 2L / serum glucose 110 PE: eyes closed she is not opining them when asked to to so / groaning/ pupils reactive/ toungue deviated to the right / right sided nasal labial fold flattening / not moving arms or legs / not squeezing my hands when I ask her to do so #suspected acute CVA Plan: CT head stroke protocol / CBC, CMP, coags, trop / EKG 1034PM confirmed the patient is not a candidate for tPA bc of the tx dose lovenox, he requested CTA head/neck / agreed with consultation with the paving and surfacing labourer manager validation / we will make her NPO, start D5NS, check FSBS Q6H w target serum glucose between 140 to 180 / dc her BP meds and allow permissive HTN w PRN IV labetalol for BP >220/110 / order rectal ASA 1040PM #TIA? The patient's RN Stef called me to inform me that the patient's deficits suddenly resolved, she alert, opening her eyes, talking, moving both arms and legs, her finger to nose test is slightly abnormal, her speech is still a bit slurred but almost back to baseline; the patient doesn't remember the events during the rapid assessment. Her SBP is now in the 150s. The radiologist called to inform us that the CT of the head was negative for an acute bleed. I informed of the change in the patient's status; he added that we should order blood cx and an Echocardiogram to r/o endocarditis and would see her tomorrow. Now that she is swallowing I will add atorvastatin to her regimen, check a lipid panel and A1C. VS,Fishbone, I+O VS, Fishbone, I+O Laboratory Tests 01/21/21 05:42 Vital Signs Date Time Temp Pulse Resp B/P (MAP) Pulse Ox O2 Delivery O2 Flow Rate FiO2 01/21/21 20:42 80 99/71 01/21/21 14:00 98.4 17 94 Room Air 01/21/21 08:00 1.0 I&O- Last 24 Hours up to 6 AM 01/21/21 06:00 Intake Total 2355 ml Output Total 0 ml Balance 2355 ml KALE CHO MD Jan 21, 2021 22:11
[2021-01-21 22:15] VITALS: BP 99/69
[2021-01-21] MEDS ORDERED: PILL CUTTER 1 EACH XX PRN (22:20)
[2021-01-21] MEDS ORDERED: D5W/0.9% SODIUM CHLORIDE 1,000 ML IV SCH (22:25)
[2021-01-21 22:26] VITALS: BP 152/70
[2021-01-21] MEDS ORDERED: LABETALOL 100MG/20ML VIAL IV PRN (22:30)
--- NOTE | 2021-01-21 22:30 | REPVR ---
PROCEDURE INFORMATION: Exam: CT Head Without Contrast Exam date and time: 01/21/2021 10:18 PM Age: 85 years old Clinical indication: Altered mental status/memory loss; Additional info: R/O CVA TECHNIQUE: Imaging protocol: Computed tomography of the head without contrast. Radiation optimization: All CT scans at this facility use at least one of these dose optimization techniques: automated exposure control; mA and/or kV adjustment per patient size (includes targeted exams where dose is matched to clinical indication); or iterative reconstruction. Other technique: STROKE PROTOCOL was implemented. COMPARISON: MRI-Brain without Contrast 01/21/2021 11:58 AM FINDINGS: Brain: No intracranial mass, mass effect or midline shift. No acute intracranial hemorrhage. No CT evidence of acute cortical infarct. Ventricles, cisterns, and sulci are normal in size for age. Paranasal sinuses: Imaged paranasal sinuses are normally aerated. Mastoid air cells: Mastoid air cells and middle ear structures are normally aerated. Orbital cavity: Imaged orbits are unremarkable. Bones/joints: No calvarial fracture or destructive process. Soft tissues: No focal extracranial soft tissue swelling. IMPRESSION: No acute or concerning focal intracranial abnormality. ASSESSMENT: ASPECTS ([place] Stroke Program Early CT Score) is 10 Electronically signed by: Leo Gifford On 01/21/2021 22:30:02 PM
[2021-01-21 22:43] LABS: ABG BASE EXCESS -4.5 (-2.0-2.0); ABG O2 SATURATION 99.1 % (95.0-99.0); ABG PARTIAL PRESSURE CO2 25.7 mmHg (35.0-45.0); ABG PARTIAL PRESSURE O2 189.4 mmHg (75.0-100.0); ABG STANDARD HCO3 20.8 MEQ/L (22.0-26.0); ABG TOTAL CO2 18.7 MEQ/L (23.0-31.0); ABG pH (ARTERIAL) 7.462 UNITS (7.350-7.450)
[2021-01-21 22:45] VITALS: BP 110/55
[2021-01-21] MEDS ORDERED: ISOVUE-370 76% 100ML VIAL As Ordered ONE (22:46)
[2021-01-21 23:00] VITALS: BP 106/59
[2021-01-21] MEDS ORDERED: DEXTROSE 50% 50 ML SYRINGE IV PRN (23:00)
[2021-01-21] MEDS ORDERED: GLUCOSE 4GM CHEW TABLET PO PRN (23:00)
[2021-01-21] MEDS ORDERED: GLUCAGON INJ 1MG VIAL SC PRN (23:00)
--- NOTE | 2021-01-21 23:10 | ECGEPIP ---
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
--- NOTE | 2021-01-21 23:28 | REPVR ---
PROCEDURE INFORMATION: Exam: CT Angiography Neck With Contrast Exam date and time: 01/21/2021 10:48 PM Age: 85 years old Clinical indication: Other: CVA TECHNIQUE: Imaging protocol: Computed tomography angiography of the neck with contrast. 3D rendering (Not supervised by radiologist): MIP and/or 3D reconstructed images were created by the technologist. Radiation optimization: All CT scans at this facility use at least one of these dose optimization techniques: automated exposure control; mA and/or kV adjustment per patient size (includes targeted exams where dose is matched to clinical indication); or iterative reconstruction. Contrast material: ISO; Contrast volume: 100 ml; Contrast route: INTRAVENOUS (IV); COMPARISON: CT Spine,cervical w/o contrast 01/18/2021 7:49 PM FINDINGS: Right common carotid, cervical ICA and proximal ECA demonstrate contrast opacification with no occlusion, flow limiting stenosis, or intimal flap to suggest dissection. Right carotid bulb and proximal right ICA demonstrates minimal atherosclerotic plaque with negligible luminal caliber narrowing Left common carotid, cervical ICA and proximal ECA demonstrate contrast opacification, with no occlusion, flow limiting stenosis, or intimal flap to suggest dissection. Left carotid bulb and proximal left ICA demonstrates minimal atherosclerotic plaque with negligible luminal caliber narrowing Vertebral arteries demonstrate normal course to the level of the skull base and show no occlusion, flow limiting stenosis or dissection. No flow limiting stenosis or anomaly of the great vessel origins. No concerning asymmetric neck soft tissue abnormality. Multi-level cervical degenerative disc and articular pillar arthropathy is present. IMPRESSION: Minimal bilateral carotid bulb and proximal ICA atherosclerotic, with minimal luminal caliber narrowing, certainly much milder than 50%. REFERENCES: NASCET CRITERIA. The degree of internal carotid artery stenosis is based on NASCET criteria. Normal is no stenosis. Mild is less than 50% stenosis. Moderate is 50-69% stenosis. Severe is 70% to 99% stenosis. Total occlusion is no detectable patent lumen. Electronically signed by: Leo Gifford On 01/21/2021 23:28:37 PM
--- NOTE | 2021-01-21 23:31 | REPVR ---
PROCEDURE INFORMATION: Exam: CT Angiography Head With Contrast, Arteriography Exam date and time: 01/21/2021 10:48 PM Age: 85 years old Clinical indication: Other: CVA TECHNIQUE: Imaging protocol: Computed tomography angiography of the head with contrast. Exam focused on the arteries. 3D rendering (Not supervised by radiologist): MIP and/or 3D reconstructed images were created by the technologist. Radiation optimization: All CT scans at this facility use at least one of these dose optimization techniques: automated exposure control; mA and/or kV adjustment per patient size (includes targeted exams where dose is matched to clinical indication); or iterative reconstruction. Contrast material: ISO; Contrast volume: 100 ml; Contrast route: INTRAVENOUS (IV); COMPARISON: CT Head without contrast 01/21/2021 10:11 PM FINDINGS: Ventricles, cisterns and sulci are symmetric and appropriate for age. No intracranial mass or focal mass effect. No intracranial hemorrhage, midline shift or acute territorial infarct. Anterior circulation: Normal contrast opacification and luminal caliber in the petrous, cavernous and supraclinoid internal carotid arteries. Normal appearance of the anterior cerebral artery branches and middle cerebral artery branches through the MCA trifurcations. No occlusion, high-grade focal stenosis or dissection. No aneurysm. Posterior circulation: Distal vertebral arteries enhance normally to the vertebrobasilar junction. Normally enhancing, normal caliber basilar artery, and normal superior cerebellar and posterior cerebral arteries. No occlusion, high-grade stenosis or aneurysm. Dural sinuses enhance normally. Bony structures show no acute fracture or destructive process. IMPRESSION: Unremarkable CT Angiogram of the head and [place]. No intracranial large vessel arterial occlusive or stenotic lesion. ASPECTS ([place] Stroke Program Early CT Score) is 10. Electronically signed by: Leo Gifford On 01/21/2021 23:31:00 PM
[2021-01-22] VITALS (22 sets, daily range): BP systolic 93–143; BP diastolic 51–75; O2SAT 95–98
[2021-01-22] MEDS ORDERED: ASPIRIN 300 MG SUPP PR ONE
[2021-01-22 00:07] LABS: BASO % 0.3 % (0.0-1.0); HEMATOCRIT 29.7 % (36.0-47.0); HEMOGLOBIN 9.8 g/dl (12.0-15.5); LYMPH # 3.1 10^3/uL (1.5-5.0); LYMPH % 33.8 % (24.0-44.0); MEAN CORPUSCULAR HEMOGLOBIN 28.7 pg (27.0-33.0); MEAN CORPUSCULAR VOLUME 87.1 fl (80.0-96.0); MONO # 1.1 10^3/uL (0.0-0.8); MONO % 11.8 % (2.0-8.0); NEUTROPHILS # 4.9 10^3/uL (1.5-8.5); NEUTROPHILS % 53.3 % (36.0-66.0); PLATELET COUNT, AUTOMATED 142 10^3/uL (150-450); RED BLOOD COUNT 3.41 10^6/uL (4.00-5.40); WHITE BLOOD COUNT 9.2 10^3/uL (4.0-10.0)
[2021-01-22 00:10] LABS: INR 1.21; PROTHROMBIN TIME 15.6 SECONDS (12.5-14.3)
[2021-01-22 00:12] LABS: PARTIAL THROMBOPLASTIN TIME 46.7 SECONDS (24.2-38.5)
[2021-01-22 00:33] LABS: ALBUMIN 2.5 GM/DL (3.2-5.2); ALT/SGPT 49 U/L (12-78); BILIRUBIN,TOTAL 0.5 MG/DL (0.2-1.0); BLOOD UREA NITROGEN 17 MG/DL (7-18); CARBON DIOXIDE LEVEL 26 MEQ/L (21-32); CHLORIDE LEVEL 106 MEQ/L (98-107); CK-MB VALUE MASS 1.4 NG/ML (<3.6); CPK CREATINE PHOSPHOKINASE 53 U/L (26-192); CREATININE FOR GFR 0.78 MG/DL (0.55-1.30); GLOMERULAR FILTRATION RATE > 60.0 (>32); GLUCOSE, FASTING 107 MG/DL (70-100); MB/CK RELATIVE INDEX 2.64 (< OR =4); POTASSIUM SERUM 3.4 MEQ/L (3.5-5.1); SODIUM LEVEL 136 MEQ/L (136-145); THYROID STIMULATING HORMONE 0.952 uIU/ML (0.358-3.740); TOTAL PROTEIN 5.5 GM/DL (6.4-8.2); TROPONIN I < 0.02 NG/ML (< 0.10)
[2021-01-22 05:14] LABS: HEMATOCRIT 28.8 % (36.0-47.0); HEMOGLOBIN 9.6 g/dl (12.0-15.5); MEAN CORPUSCULAR HEMOGLOBIN 28.9 pg (27.0-33.0); MEAN CORPUSCULAR HGB CONC 33.3 g/dl (32.0-36.5); MEAN CORPUSCULAR VOLUME 86.7 fl (80.0-96.0); PLATELET COUNT, AUTOMATED 136 10^3/uL (150-450); RED BLOOD COUNT 3.32 10^6/uL (4.00-5.40)
[2021-01-22 05:39] LABS: BLOOD UREA NITROGEN 15 MG/DL (7-18); CALCIUM LEVEL 7.2 MG/DL (8.8-10.2); CARBON DIOXIDE LEVEL 23 MEQ/L (21-32); CHLORIDE LEVEL 110 MEQ/L (98-107); CHOLESTEROL LEVEL 69 MG/DL (<200); CHOLESTEROL RISK RATIO 4.928 (<5); CREATININE FOR GFR 0.67 MG/DL (0.55-1.30); GLOMERULAR FILTRATION RATE > 60.0 (>32); GLUCOSE, FASTING 108 MG/DL (70-100); HDL CHOLESTEROL 14 MG/DL (>40); LDL CHOLESTEROL 34 MG/DL (<100); NON-HDL-C 55 MG/DL; POTASSIUM SERUM 3.3 MEQ/L (3.5-5.1); SODIUM LEVEL 141 MEQ/L (136-145); TRIGLYCERIDES LEVEL 105 MG/DL (<150)
[2021-01-22 05:59] LABS: HEMOGLOBIN A1c 5.9 %
[2021-01-22] MEDS ORDERED: POTASSIUM CHLORIDE 10 MEQ SR TABLET PO ONE ×2 (06:45→08:00)
[2021-01-22] MEDS ORDERED: HumaLOG INSULIN (NovoLOG) PER UNIT SC SCH (07:30)
[2021-01-22 07:44] LABS: MAGNESIUM LEVEL 1.9 MG/DL (1.8-2.4)
[2021-01-22] MEDS: BENZONATATE 100 MG CAP PO SCH ×3 (08:46→20:20)
[2021-01-22] MEDS: ENOXAPARIN 100MG/1ML SYRINGE (J1650 PER 10MG) SC SCH (08:46)
[2021-01-22] MEDS: PANTOPRAZOLE 40MG TAB (PROTONIX) PO SCH (08:46)
[2021-01-22] MEDS: CALCIUM/VITAMIN D 500 MG TAB PO SCH (08:47)
[2021-01-22] MEDS: SUCRALFATE SUSP 1GM/10ML UD PO SCH ×4 (08:47→20:20)
[2021-01-22] MEDS ORDERED: ASPIRIN 81MG ENTERIC TABLET PO SCH (09:00)
[2021-01-22] MEDS ORDERED: ATORVASTATIN 20 MG TAB PO SCH (09:00)
[2021-01-22 11:38] LABS: PROLACTIN 10.7 NG/ML
[2021-01-22 13:28] LABS: CK-MB VALUE MASS 1.1 NG/ML (<3.6); CPK CREATINE PHOSPHOKINASE 36 U/L (26-192); MB/CK RELATIVE INDEX 3.06 (< OR =4); TROPONIN I < 0.02 NG/ML (< 0.10)
--- NOTE | 2021-01-22 13:35 | IPNPDOC ---
Text Note Date of Service The patient was seen on 01/22/21. NOTE Subjective: Overnight around 10 PM patient developed episode of asystole on t elemetry following by bradycardia. The episode of asystole was around 2 minutes resolved on its own. Patient was unresponsive during asystole. In the morning patient denied any chest pain, palpitations. Objective: GENERAL APPEARANCE: Obese female HEENT: no scleral icterus, no JVD, EOMI CARDIOVASCULAR: Irregularly irregular LUNGS: Diminished lung sounds bilaterally ABDOMEN: soft & not tender w palpitation MUSCULOSKELETAL: no cyanosis, no swelling INTEGUMENT: no generalized pallor NEUROLOGICAL: cranial nerve function from 2-12 intact intact, follows commands, speech not dysarthric Assessment and plan Patient is an 85 year old female with colostomy bag and sciatic who is here for weakness, fall, and abdominal pain. Imaging did not demonstrate any acute intraabdominal pathology. Patient reported history of fall. On 01/20/21, patient went into atrial fibrillation with RVR. Cardiac arrest/asystole Around 10 PM on 01/21/21 patient developed asystole during 2 min on the telemetry resolved on its own, following by bradycardia at the rate around 38-40 Troponin was negative, EKG negative for acute ischemic changes Patient developed asystole possibly secondary to beta blockers or underlying cardiac diseases Will repeat EKG, troponin, echo Pacer pads Appreciate/agree with marine tower operator consult Beta blockers on hold Atrial fibrillation with rapid ventricular rate I changed Lovenox to Eliquis 5 mg twice a day Heart rate is under control We will hold beta blockers given episode of asystole Fever Unknown etiology, could be related to amoxicillin Resolved Blood culture negative for 72 hours, await repeated blood culture Nausea /vomiting/abdominal pain Resolved CT abdomen/pelvis negative History of fall/deconditioning Could be secondary to cardiac arrhythmia Await cardiac consult Continue telemetry PT/OT Back pain/sciatica Pain management Diastolic CHF Continue torsemide Not in acute exacerbation Obesity -BMI 33.6 -Complicates care Microhematuria Could be secondary to nephrolithiasis Follow-up with urologist in the outpatient settings Cough with eating Await speech evaluation Imaging study negative for stroke Coronary artery diseases/hyperlipidemia Continue statin, aspirin VS,Fishbone, I+O VS, Fishbone, I+O Laboratory Tests 01/21/21 23:50 01/22/21 04:32 Vital Signs Date Time Temp Pulse Resp B/P (MAP) Pulse Ox O2 Delivery O2 Flow Rate FiO2 01/22/21 10:00 97 Room Air 01/22/21 04:00 97.2 80 16 102/59 (73) 01/21/21 22:15 4.0 I&O- Last 24 Hours up to 6 AM 01/22/21 06:00 Intake Total 1470 ml Output Total 500 ml Balance 970 ml CLAUDIA JAMISON DO Jan 22, 2021 13:35
--- NOTE | 2021-01-22 16:56 | IPN ---
PROGRESS NOTE DATE: 01/22/2021 TIME: 3:28 p.m. I was requested by telephone at the request of Dr. Sam Cortez to implant a permanent dual-chamber pacemaker for sick sinus syndrome. Dr. Cortez is the temperature control inspector who was on consult for this patient. Patient is an 85-year-old woman with diastolic heart failure, paroxysmal atrial fibrillation, systemic hypertension, and obesity, who presented to [facility] Emergency Room (ER) 10/18/2020 with complaints of weakness. At that time, she was noted to have fever of undetermined cause, hypotension, thought to be due to torsemide and losartan, abdominal pain, and unexplained fall. She had fallen and had not been able to get up that day. In hospital during this hospitalization she developed atrial fibrillation with rapid ventricular response. She was placed on Eliquis (none given) and Lovenox (last dose this morning). She was placed on metoprolol tartrate 25 mg twice a day with her last dose received yesterday evening. In the rn referral hours overnight the patient developed a spontaneous episode of asystole lasting 2 minutes, during which time the patient had syncope. Patient denies any chest pain or chest discomfort with or without activity. She reports she has had episodes of palpitations. She reports exertional dyspnea with low levels of activity. No recent leg or ankle edema. She has been having recently unexplained falls, some of which she believes that she passed out. No claudication. PHYSICAL EXAMINATION: A pleasant, elderly woman who was not in any respiratory or psychologic distress. Appears obese. Body mass index (BMI) 35.8, height 65 inches, weight 97.5 kg. Oxygen saturation 96% on room air, temperature 97.2, pulse 80, respiratory rate 16, blood pressure (BP) 102/59. Jugular venous pressure (JVP) 3 cm. respiratory expansion effort was good. No crackles or wheezes. First and second heart sounds are normal. No S3, S4, or murmur appreciated. Abdomen was soft and nontender with normal bowel sounds. Legs were obese but no peripheral pitting edema. Electrocardiogram 01/21/2021 shows atrial fibrillation with rapid ventricular response, 102 beats per minute (BPM), low QRS voltages, non-specific ST abnormality. Laboratory work 01/22/2021 is reviewed. WBC 9.0, hemoglobin 9.6, hematocrit 22.8, platelets 136. Sodium 141, potassium 3.3, chloride 103, CO2 of 23, BUN 15, creatinine 0.67, estimated GFR greater than 60, glucose 108, calcium 7.2. ASSESSMENT AND PLAN: 1. Sick sinus syndrome/tachycardia/bradycardia syndrome. This patient requires atrioventricular (AV) constantin sling medication for paroxysmal atrial fibrillation with rapid ventricular response. She has been documented to have syncope as a result of 2 minutes of asystole. She meets criteria for a permeant dual-chamber pacemaker, and I concur with Dr. Sam Cortez that the patient requires a permanent dual-chamber pacemaker. Dual-chamber pacemaker implantation was discussed with the patient, including the alternative of no pacemaker (risk of recurrent syncope and of consequences, including bodily harm and increased risk for sudden cardiac ). Risks of pacemaker implantation were explained to the patient, including, not all inclusive, infection (1%-2%), pneumothorax (1%), bleeding, adverse drug reaction, poor wound healing, cardiac dysrhythmias, lead dislodgement, cardiac perforation with cardiac tamponade (10/999). Patient was agreeable and signed the consent form. The plan will be to proceed to the operating room tomorrow so as to allow the patient's Lovenox that she received this morning to largely wear off. 2. Syncope. Syncope is secondary to asystole. Plan will be for implantation of a permanent dual-chamber pacemaker. 3. Paroxysmal atrial fibrillation. Patient will be placed on AV constantin sling medication once she has received a permanent pacemaker so that it will be safe to do so. Anticoagulation can resume following implantation of pacemaker. 4. Diastolic heart failure. Patient appears compensated. At present, diuretic and angiotensin-receptor vitaly (ARB) are on hold. 5. Systemic hypertension. Blood pressure presently controlled. Her antihypertensive agents are presently on hold due to hypotension that was observed earlier during this hospitalization.
[2021-01-22] MEDS: ROSUVASTATIN 10 MG TAB (CRESTOR) PO SCH (20:20)
[2021-01-22] MEDS ORDERED: APIXABAN 5 MG TAB (ELIQUIS) PO SCH (21:00)
--- NOTE | 2021-01-22 23:30 | ECGEPIP ---
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 Low voltage QRS Nonspecific T wave abnormality Decreased heart rate and no longer in atrial fibrillation compared with 02/20/2021. Electronically Signed on 01-22-2021 23:30:25 EDT by Guille Awad
--- NOTE | 2021-01-22 23:42 | ECGEPIP ---
[facility] Test Date: 2021-01-22 Pat Name: DEAN GARCIA Department: Room: [place] [address] Gender: Female Urologist: jing : 1935 Requested By: CLAUDIA JAMISON Order Number: [id number] Reading MD: Guille Awad Measurements Intervals [place] Rate: 89 P: [place]: QRS: 27 QRSD: 78 T: 53 QT: 382 QTc: 464 Interpretive Statements Atrial fibrillation Low voltage QRS No significant change compared with 01/21/2021 at 2354 hrs. FYI: ECG 01/21/2021 at 2054 hrs. shows atrial fibrillation, not sinus rhythm. Electronically Signed on 01-22-2021 23:41:48 EDT by Guille Awad
[2021-01-23] VITALS (20 sets, daily range): BP systolic 120–162; BP diastolic 56–92; O2SAT 92–98
[2021-01-23 04:52] LABS: HEMOGLOBIN 10.3 g/dl (12.0-15.5); MEAN CORPUSCULAR HEMOGLOBIN 28.9 pg (27.0-33.0); MEAN CORPUSCULAR HGB CONC 33.2 g/dl (32.0-36.5); MEAN CORPUSCULAR VOLUME 87.1 fl (80.0-96.0); PLATELET COUNT, AUTOMATED 199 10^3/uL (150-450); RED BLOOD COUNT 3.56 10^6/uL (4.00-5.40); WHITE BLOOD COUNT 7.7 10^3/uL (4.0-10.0)
[2021-01-23 05:11] LABS: BLOOD UREA NITROGEN 15 MG/DL (7-18); CALCIUM LEVEL 7.7 MG/DL (8.8-10.2); CARBON DIOXIDE LEVEL 25 MEQ/L (21-32); CHLORIDE LEVEL 112 MEQ/L (98-107); GLOMERULAR FILTRATION RATE > 60.0 (>32); GLUCOSE, FASTING 100 MG/DL (70-100); POTASSIUM SERUM 3.9 MEQ/L (3.5-5.1); SODIUM LEVEL 142 MEQ/L (136-145)
[2021-01-23] MEDS ORDERED: LR 1,000 ML IV SCH (06:00)
--- NOTE | 2021-01-23 06:10 | REPVR ---
PROCEDURE INFORMATION: Exam: US Retroperitoneal Limited, Kidneys Exam date and time: 01/23/2021 4:36 AM Age: 85 years old Clinical indication: Other: Hematuria TECHNIQUE: Imaging protocol: Real-time ultrasound of the retroperitoneum with image documentation. Examination was focused on the kidneys. COMPARISON: 1. CT ABD/PEL W/IV ORAL CONTRAS 01/19/2021 8:[address] ABD/PEL W/IV CONTRAST ONLY 01/03/2021 1:09 PM FINDINGS: Right kidney: No stones. No hydronephrosis. The right kidney measures 11.5 x 3.6 x 4.6 cm. Normal renal cortex. Slightly increased renal sinus fat. Left kidney: No stones. No hydronephrosis. The left kidney measures 11.3 x 5.4 x 5.6 cm. Normal renal cortex. Slightly increased renal sinus fat. IMPRESSION: No acute findings. No renal calculi identified. Electronically signed by: Gian Palbo On 01/23/2021 06:10:04 AM
[2021-01-23] MEDS: SUCRALFATE SUSP 1GM/10ML UD PO SCH ×4 (07:11→20:11)
[2021-01-23] MEDS: BENZONATATE 100 MG CAP PO SCH ×3 (08:45→20:10)
[2021-01-23] MEDS: ASCORBIC ACID 250 MG TAB PO SCH ×2 (08:45→20:10)
[2021-01-23] MEDS: PANTOPRAZOLE 40MG TAB (PROTONIX) PO SCH (08:45)
[2021-01-23] MEDS: CALCIUM/VITAMIN D 500 MG TAB PO SCH (08:45)
[2021-01-23] MEDS ORDERED: AMIODARONE 200 MG TAB (PACERONE) PO ONE (09:05)
--- NOTE | 2021-01-23 11:46 | ECHO ---
ECHOCARDIOGRAM DATE OF PROCEDURE: 01/22/2021 Age: Gender: Height: 155 cm Weight: 91.5 kg REFERRING PHYSICIAN: Dr. Nabil Blankenship INDICATION: Cardiac dysrhythmias, unspecified. 2D MEASUREMENTS: Left atrium 4.4 cm Aortic root 3.0 cm Ventricular septum 0.92 cm Posterior wall 1.04 cm Left ventricle diastole 5.2 cm Left ventricle systole 3.5 cm Aortic annulus 1.9 cm Left atrial volume index 33 Inferior vena cava 2.4 cm with normal respiratory variation DOPPLER MEASUREMENTS Mild aortic stenosis. No aortic regurgitation Peak aortic valve velocity 275 cm/s Peak aortic valve gradient 30 mmHg Mean aortic valve gradient 20 mmHg LVOT velocity 61.4 cm/s Very mild mitral regurgitation No mitral stenosis Mitral E velocity (pulse wave) 87.3 cm/c Mitral deceleration time 283 msec Very mild tricuspid regurgitation Estimated right ventricle systolic pressure 29-34 mmHg Estimated aortic pressure of 5-10 mmHg No pulmonic regurgitation Pulmonary acceleration time 85 msec Pulmonary artery systolic pressure 41 mmHg DESCRIPTION: Rhythm was sinus. Image quality was adequate. This was a 2D, M mode, color flow Doppler, and pulsed wave Doppler examination, and tissue Doppler examination. CONCLUSIONS: 1. Normal left ventricle internal dimensions and wall thickness. Normal regional LV wall motion and wall thickening. Normal LV systolic function. LVEF 56% (3D). Normal longitudinal systolic strain pattern. Incomplete assessment of LV diastolic function. 2. Moderate aortic valve sclerosis of a 3-cuspid aortic valve. Mild aortic stenosis. No aortic regurgitation. 3. Moderate mitral annular calcification. Very mild mitral regurgitation. No mitral stenosis. 4. Mild left atrial dilatation by left atrial volume index. 5. Suggestive of estimated right ventricle systolic pressure to be near the upper limits of normal to mildly elevated. Suggestive of moderate elevation of pulmonary artery systolic pressure. Normal right ventricle size and systolic function. Normal right atrial size. 6. Suggestive of normal CVP (5-10 mmHg). 7. No pericardial effusion. MTDD
[2021-01-23] MEDS ORDERED: propofoL 200 MG/20 ML VIAL As Ordered ONE ×2 (14:23→16:23)
[2021-01-23] MEDS ORDERED: ONDANSETRON 4MG/2ML VIAL As Ordered ONE (14:23)
[2021-01-23] MEDS ORDERED: LIDOCAINE 2% 100MG/5ML SDV (FOR ANES.) As Ordered ONE (14:23)
[2021-01-23] MEDS ORDERED: MIDAZOLAM INJ 2MG/2ML VIAL (J2250 PER 1MG) As Ordered ONE (14:23)
[2021-01-23] MEDS ORDERED: fentaNYL 100 MCG/2 ML INJECTION (J3010) As Ordered ONE (14:23)
[2021-01-23] MEDS ORDERED: ceFAZolin SOD 2 GM in IV 1 EA IV ONE (15:00)
[2021-01-23] MEDS ORDERED: LIDOCAINE 1% SDV 30ML VIAL As Ordered ONE (15:08)
[2021-01-23] MEDS ORDERED: MUPIROCIN 2% OINT 22 GM TUBE As Ordered ONE (15:08)
[2021-01-23] MEDS ORDERED: ISOVUE-300 61% 50ML VIAL As Ordered ONE (15:08)
[2021-01-23] MEDS ORDERED: VANCOMYCIN 1000MG/20ML VIAL As Ordered ONE (15:08)
[2021-01-23] MEDS ORDERED: ceFAZolin 2 GM/D5W 50 ML IV BAG (J0690 PER 500MG) As Ordered ONE (15:09)
[2021-01-23] MEDS ORDERED: AMIODARONE HCL 150 MG/100 ML PREMIXED BAG (NEXTERONE) (J0282 PER 30MG) As Ordered ONE ×2 (16:39→17:03)
--- NOTE | 2021-01-23 17:24 | REP ---
INDICATION: PACEMAKER INSERTION. COMPARISON: None. TECHNIQUE: Single-view. 4 minutes 41 seconds of fluoroscopy time is reported. FINDINGS: A single last image hold fluoroscopically obtained spot radiograph of the chest documents pacemaker lead position. IMPRESSION: Procedural imaging. <Electronically signed by Bennett Juárez > 01/23/21 [id number]
--- NOTE | 2021-01-23 18:01 | REP ---
INDICATION: POST OP IN PACU WILL CALL. COMPARISON: Comparison chest x-ray January 21, 2021.. TECHNIQUE: Sitting AP portable chest x-ray. FINDINGS: A bipolar pacemaker is been installed in the enlarged heart view of the left side in the interval since the previous study. There is no evidence of pneumothorax or hydrothorax. There is platelike atelectasis in the right base and to a lesser extent in the left base. A new zone of discoid atelectasis is seen in the left upper lobe perihilar region. Moderate cardiomegaly is observed. Pulmonary vasculature is cephalized. IMPRESSION: Cardiomegaly with cephalization. Bilateral discoid atelectatic changes. No pneumothorax or hydrothorax seen. Status post pacemaker insertion. <Electronically signed by Bennett Juárez > 01/23/21 [id number]
[2021-01-23] MEDS ORDERED: FUROSEMIDE 100MG/10ML VIAL (J1940) IV ONE (18:05)
--- NOTE | 2021-01-23 18:33 | RO ---
OPERATIVE NOTE DATE OF OPERATION: 01/23/2021 PREOPERATIVE DIAGNOSIS: Sick sinus syndrome/tachycardia-bradycardia syndrome. POSTOPERATIVE DIAGNOSIS: Sick sinus syndrome/tachycardia-bradycardia syndrome. FINDINGS: Sick sinus syndrome/tachycardia-bradycardia syndrome. PROCEDURE PERFORMED: Implantation of a permanent Medtronic dual-chamber pacemaker. SURGEON: Guille Awad M.D. REAL ESTATE LEASING MANAGER: None. ANESTHESIA: Lidocaine 1% local/monitored anesthetic care. SPECIMENS: None. ESTIMATED BLOOD LOSS: Less than 50 mL. BLOOD PRODUCTS REPLACED: None. DRAINS: None. COMPLICATIONS: None. DESCRIPTION OF PROCEDURE: Patient was prepped and draped over the left pectoral region. 3M Ioban film was then applied. Lidocaine 1% was used for local anesthetic. A left subclavian venogram was performed via an antecubital vein, injecting a total volume of 20 mL of a solution containing five parts Isovue to one part normal saline. This was used in real time under fluoroscopic guidance for percutaneous access with a micropuncture needle into the left subclavian vein, extrathoracic portion. This was then guidewire exchanged for one of the guidewires that came with one of the 7 Tajik sheaths. Next, a PEAK PlasmaBlade was used to make an incision approximately 3 to 3-1/2 inches in length 1 cm below the skin crease side of the guidewire and approximately parallel to the left clavicle. The PEAK PlasmaBlade was used to get through the fatty layer and through the fibers of Austin's fascia. The pacemaker pocket was then formed in a caudal direction using blunt dissection using two fingers to separate the Austin's fascia from the prepectoral fascia. Next, the guidewire was pulled through the skin into the incision site. Next, I took another micropuncture needle and obtained a separate venous access at the level of the pectoral muscle a few cm lateral to the entry site of the first guidewire in the muscle and used the first guidewire as a fluoroscopic marker to gain venous access to left subclavian vein. This was guidewire exchanged for the other guidewire that came with the other 7 Tajik sheath. Next, a 7 Tajik sheath with introducer was placed over the more lateral of the guidewires and was used for vein access for the right ventricular lead. The right ventricular lead was placed under fluoroscopic guidance into the right ventricular apex position where it was secured with a total of 10 turns. This position was found to be electrically and anatomically satisfactory. No diaphragmatic pacing could be palpated on either side at high output pacing. The 7 Tajik sheath was broken apart and removed. The ventricular lead was then secured to the pectoral muscle using the supplied tie-down sleeve using two individual sutures consisting of 0 Ethibond. Next, the other 7 Tajik sheath with introducer was placed over the more medial of the guidewires and was used for vein access for the right atrial lead. The right atrial lead was placed under fluoroscopic guidance with the help of a preformed J-stylet in the right atrial appendage position where it was secured with a total of 10 turns. This position was found to be electrically and anatomically satisfactory. The J-style was removed and the lead remained in stable location. Next, the 7 Tajik sheath was broken apart and removed and the atrial lead was secured to the pectoral muscle using the supplied tie-down sleeve using two individual sutures consisting of 0 Ethibond. Next another 0 Ethibond suture was placed into the pectoral muscle to serve as the tie-down for the pacemaker pulse generator. I then took a medium sized TYRX antimicrobial envelope and cut it into four pieces which were placed into the pocket for the pacemaker pulse generator. Next, the terminal pins of the atrial and ventricular leads were plugged into their respective ports in the header of the new pacemaker pulse generator and each one was secured by tightening the set screws. A pull test was applied to each lead to demonstrate it was secure within the header. During the operation, the patient was in atrial fibrillation the entire time. During the operation following implantation of the ventricular lead, the patient was given two doses of amiodarone 100 mg IV over ten minutes each which did not convert the patient to sinus rhythm in the operating room. The excess lead material was placed underneath the pacemaker pulse generator and placed in the pacemaker pocket along with the pacemaker pulse generator. The pulse generator was secured to the pectoral muscle with the previously placed 0 Ethibond suture. The deep layer was closed using individual sutures consisting of 2-0 Vicryl. Additional 3-0 Vicryl sutures were used to help approximate the more superficial layer. The skin was closed using yomi. This was followed by application of Bactroban ointment followed by Telfa followed by a bio-occlusive dressing. The patient received a left arm sling in the operating room before she left the operating room. The patient tolerated the procedure well without any immediate complications. The pacemaker pulse generator implanted was a Medtronic Mary model W1DR01 with serial number [id number]. The right atrial lead implanted was a Medtronic model 4076-45 cm with serial number [id number]. Testing in bipolar configuration with the pulse analyzer for the right atrial lead showed lead impedance of 399 ohms and fibrillation waves of 1.875 millivolts. A device based testing for the right atrial lead showed a fibrillation wave of 0.8 millivolts with lead impedance of 418 ohms. The right ventricular lead implanted was a Medtronic model 4076-52 cm with serial number [id number]. Testing in bipolar configuration in the operating room with a pulse analyzer for the right ventricular lead showed a capture threshold of 0.8 volts at 0.4 milliseconds with lead impedance of 532 ohms and R wave amplitude of 13 millivolts. A device based testing in the operating room for the right ventricular lead showed R wave amplitude of 12.1 millivolts with lead impedance of 570 ohms and capture threshold of 0.75 volts at 0.4 milliseconds.
[2021-01-23] MEDS ORDERED: FUROSEMIDE 20MG/2ML VIAL (J1940) IV ONE (18:45)
[2021-01-23] MEDS: ROSUVASTATIN 10 MG TAB (CRESTOR) PO SCH (20:10)
--- NOTE | 2021-01-23 21:37 | ECGEPIP ---
[facility] Test Date: 2021-01-23 Pat Name: DEAN GARCIA Department: Room: [place] [address] Gender: Female Medical Reception: rai : 1935 Requested By: Guille Awad Order Number: [id number] Reading MD: Guille Awad Measurements Intervals [place] Rate: 92 P: NV: QRS: 46 QRSD: 80 T: 57 QT: 378 QTc: 467 Interpretive Statements Atrial fibrillation Low voltage QRS Nonspecific ST & T wave abnormality Electronically Signed on 01-23-2021 21:37:09 EDT by Guille Awad
[2021-01-24] VITALS (7 sets, daily range): BP systolic 120–166; BP diastolic 60–80
[2021-01-24] MEDS: ACETAMINOPHEN TAB 650MG DOSE (2X325MG) PO PRN ×2 (00:12→08:56)
[2021-01-24 05:12] LABS: HEMATOCRIT 31.7 % (36.0-47.0); HEMOGLOBIN 10.3 g/dl (12.0-15.5); MEAN CORPUSCULAR HEMOGLOBIN 28.7 pg (27.0-33.0); MEAN CORPUSCULAR HGB CONC 32.5 g/dl (32.0-36.5); MEAN CORPUSCULAR VOLUME 88.3 fl (80.0-96.0); PLATELET COUNT, AUTOMATED 218 10^3/uL (150-450); RED BLOOD COUNT 3.59 10^6/uL (4.00-5.40); WHITE BLOOD COUNT 6.5 10^3/uL (4.0-10.0)
[2021-01-24 05:37] LABS: BLOOD UREA NITROGEN 10 MG/DL (7-18); CALCIUM LEVEL 7.8 MG/DL (8.8-10.2); CARBON DIOXIDE LEVEL 29 MEQ/L (21-32); CHLORIDE LEVEL 110 MEQ/L (98-107); CREATININE FOR GFR 0.55 MG/DL (0.55-1.30); GLOMERULAR FILTRATION RATE > 60.0 (>32); GLUCOSE, FASTING 91 MG/DL (70-100); POTASSIUM SERUM 3.4 MEQ/L (3.5-5.1); SODIUM LEVEL 143 MEQ/L (136-145)
[2021-01-24] MEDS ORDERED: POTASSIUM CHLORIDE 10 MEQ SR TABLET PO ONE (07:10)
--- NOTE | 2021-01-24 07:11 | IPNPDOC ---
Text Note Date of Service The patient was seen on 01/23/21. NOTE Subjective: No any acute events overnight. Patient denies fever, palpitations, chest pain. She is alert and oriented. Objective: GENERAL APPEARANCE: Obese female HEENT: no scleral icterus, no JVD, EOMI CARDIOVASCULAR: Irregularly irregular LUNGS: Diminished lung sounds bilaterally ABDOMEN: soft & not tender w palpitation, large protrusion around colostomy, bowel sounds present MUSCULOSKELETAL: no cyanosis, no swelling INTEGUMENT: no generalized pallor NEUROLOGICAL: cranial nerve function from 2-12 intact intact, follows commands, speech not dysarthric Assessment and plan Patient is an 85 year old female with colostomy bag and sciatic who is here for weakness, fall, and abdominal pain. Imaging did not demonstrate any acute intraabdominal pathology. Patient reported history of fall. On 01/20/21, patient went into atrial fibrillation with RVR. Cardiac arrest/asystole/tachy-gisele syndrome/Sick sinus syndrome/syncope Around 10 PM on 01/21/21 patient developed asystole during 2 min on the telemetry resolved on its own, following by bradycardia at the rate around 38-40 Troponin was negative, EKG negative for acute ischemic changes Patient developed asystole possibly secondary to beta blockers or underlying cardiac diseases Await echo report Dr Awad will proceed with dual-chamber pacemaker placement today Atrial fibrillation with rapid ventricular rate Heart rate is under control Eliquis on hold due to pacemaker placement Fever Unknown etiology, could be related to amoxicillin Resolved Blood culture negative, await repeated blood culture Nausea /vomiting/abdominal pain Resolved CT abdomen/pelvis negative History of fall/deconditioning Could be secondary to cardiac arrhythmia Continue telemetry PT/OT Back pain/sciatica Pain management Diastolic CHF diuretic and angiotensin-receptor vitaly (ARB) are on hold. Not in acute exacerbation Obesity -BMI 33.6 -Complicates care Microhematuria Could be secondary to nephrolithiasis Follow-up with urologist in the outpatient settings Cough with eating Await speech evaluation Imaging study negative for stroke Coronary artery diseases/hyperlipidemia Continue statin, aspirin Abdominal hernia Around colostomy bag Appreciate/agree with surgical team consult Star GARDNER, I+O Star GARDNER, I+O Laboratory Tests 01/23/21 04:11 Vital Signs Date Time Temp Pulse Resp B/P (MAP) Pulse Ox O2 Delivery O2 Flow Rate FiO2 6/23/21 10:00 91 137/63 (87) 96 Room Air 01/23/21 08:00 97.7 18 01/21/21 22:15 4.0 I&O- Last 24 Hours up to 6 AM 01/23/21 06:00 Intake Total 605 ml Output Total 1055 ml Balance -450 ml CLAUDIA JAMISON DO Jan 23, 2021 12:00
--- NOTE | 2021-01-24 08:28 | REP ---
INDICATION: post op pacer. COMPARISON: Comparison chest x-ray January 23, 2021. TECHNIQUE: Two views.. FINDINGS: A dual lead pacemaker is seen in place via the left side. There is no evidence of pneumothorax. There is mild linear platelike atelectasis in the right base. Moderate cardiac enlargement is seen. There is slight blunting of the posterior pleural angles on the lateral radiograph. Pulmonary vasculature is cephalized. IMPRESSION: Cardiomegaly with bipolar pacemaker in place. No complication seen. Platelike atelectasis right base.. <Electronically signed by Bennett Juárez > 01/24/21 [id number]
[2021-01-24] MEDS: SUCRALFATE SUSP 1GM/10ML UD PO SCH ×4 (08:55→21:42)
[2021-01-24] MEDS: SPIRONOLACTONE 25 MG TAB PO SCH (08:56)
[2021-01-24] MEDS: APIXABAN 5 MG TAB (ELIQUIS) PO SCH ×2 (08:59→21:42)
[2021-01-24] MEDS: PANTOPRAZOLE 40MG TAB (PROTONIX) PO SCH (08:59)
[2021-01-24] MEDS: AMIODARONE 200 MG TAB (PACERONE) PO SCH ×2 (08:59→15:57)
[2021-01-24] MEDS: ASCORBIC ACID 250 MG TAB PO SCH ×2 (08:59→21:42)
[2021-01-24] MEDS: CALCIUM/VITAMIN D 500 MG TAB PO SCH (08:59)
[2021-01-24] MEDS: BENZONATATE 100 MG CAP PO SCH ×3 (08:59→21:42)
[2021-01-24] MEDS ORDERED: METOPROLOL SUCC *XL* 25MG TAB (TopROL *XL*) PO SCH (09:00)
--- NOTE | 2021-01-24 09:19 | IPNPDOC ---
Text Note Date of Service The patient was seen on 01/24/21. NOTE Patient seen and examined this morning. She was in the operating room to get her pacemaker placed last night when a passerby. Full consult to follow. She is denying any abdominal discomfort, nausea, vomiting or bloating at this time. Small amount of gas and liquid stool in the colostomy bag. On examination she has moderate sized parastomal hernia essentially the size of her ostomy appliance. There still is a good ostomy appliance seal. There is no leakage. Slight prolapse of her ostomy but otherwise looks viable. The herniating component is not fully reducible but does not look acutely incarcerated. No tenderness at the parastomal site. No skin erythema. Impression and plan Parastomal hernia Does not look to be acutely incarcerated nor the patient having any obstruction I told the patient that she has a parastomal hernia which usually is in eventuality and long standing ostomies. She actually was not aware of this though it probably has been for a while like this. On CT scan is was containing some loops of small bowel that are nonobstructed. This looks to be chronically placed in the hernia but she does not look to be acutely incarcerated. This does not need any emergent or urgent surgery and usually can be tolerate the hernia unless patient is terribly symptomatic, causing any problems with the function of the colostomy or seal of the colostomy appliance or patient is having symptoms related to the hernia like obstructions or severe discomfort. At this point she is not really a candidate for any intense invasive procedures given her heart condition. I would just advise watchful waiting for now and could revisit this in the future if she is more symptomatic. VS,Fishbone, I+O VS, Fishbone, I+O Laboratory Tests 01/24/21 04:48 Vital Signs Date Time Temp Pulse Resp B/P (MAP) Pulse Ox O2 Delivery O2 Flow Rate FiO2 01/24/21 09:00 100 138/66 01/24/21 05:53 100 Nasal Cannula 2.0 01/24/21 04:00 97.0 16 I&O- Last 24 Hours up to 6 AM 01/24/21 05:59 Intake Total 800 ml Output Total 2845 ml Balance -2045 ml CHRISSIE BROWN MD Jan 24, 2021 09:19
--- NOTE | 2021-01-24 11:04 | IPNPDOC ---
Text Note Date of Service The patient was seen on 01/24/21. NOTE Subjective: No any acute events overnight. Patient patient stated that she has mild pain in the area of pacemaker placement Objective: GENERAL APPEARANCE: Obese female HEENT: no scleral icterus, no JVD, EOMI CARDIOVASCULAR: Irregularly irregular, pacemaker in place LUNGS: Diminished lung sounds bilaterally ABDOMEN: soft & not tender w palpitation, large protrusion around colostomy, bowel sounds present MUSCULOSKELETAL: no cyanosis, no swelling INTEGUMENT: no generalized pallor NEUROLOGICAL: cranial nerve function from 2-12 intact intact, follows commands, speech not dysarthric Assessment and plan Patient is an 85 year old female with colostomy bag and sciatic who is here for weakness, fall, and abdominal pain. Imaging did not demonstrate any acute intraabdominal pathology. Patient reported history of fall. On 01/20/21, patient went into atrial fibrillation with RVR. Cardiac arrest/asystole/tachy-gisele syndrome/Sick sinus syndrome/syncope Around 10 PM on 01/21/21 patient developed asystole during 2 min on the telemetry resolved on its own, following by bradycardia at the rate around 38-40 Troponin was negative, EKG negative for acute ischemic changes Patient developed asystole possibly secondary to beta blockers or underlying cardiac diseases Await echo report Dr Awad placed dual-chamber pacemaker on 01/23/21 Atrial fibrillation with rapid ventricular rate Heart rate is under control Will restart Eliquis Fever Unknown etiology, could be related to amoxicillin Resolved Blood culture negative Nausea /vomiting/abdominal pain Resolved CT abdomen/pelvis negative History of fall/deconditioning Could be secondary to cardiac arrhythmia Continue telemetry PT/OT Back pain/sciatica Pain management Diastolic CHF Not in acute exacerbation I's and O's Obesity -BMI 33.6 -Complicates care Microhematuria Could be secondary to nephrolithiasis Follow-up with urologist in the outpatient settings Cough with eating Imaging study negative for stroke Diet was modified Coronary artery diseases/hyperlipidemia Continue statin Abdominal hernia/parastomal hernia Around colostomy bag Surgical team consulted patient, no indication for surgical intervention Deconditioning PT/OT VS,Fishbone, I+O VS, Fishbone, I+O Laboratory Tests 01/24/21 04:48 Vital Signs Date Time Temp Pulse Resp B/P (MAP) Pulse Ox O2 Delivery O2 Flow Rate FiO2 01/24/21 09:00 100 138/66 01/24/21 07:38 97.0 20 96 Nasal Cannula 2.0 I&O- Last 24 Hours up to 6 AM 01/24/21 06:00 Intake Total 800 ml Output Total 2815 ml Balance -2015 ml CLAUDIA JAMISON DO Jan 24, 2021 11:04
[2021-01-24] MEDS: ROSUVASTATIN 10 MG TAB (CRESTOR) PO SCH (21:42)
[2021-01-25] MEDS: ACETAMINOPHEN TAB 650MG DOSE (2X325MG) PO PRN (05:12)
[2021-01-25 06:00] VITALS: BP 111/56
[2021-01-25] MEDS ORDERED: MOM 30ML SUSPENSION UDC PO ONE (08:00)
[2021-01-25] MEDS: ASCORBIC ACID 250 MG TAB PO SCH ×2 (08:44→20:37)
[2021-01-25] MEDS: SUCRALFATE SUSP 1GM/10ML UD PO SCH ×4 (08:44→20:38)
[2021-01-25] MEDS: METOPROLOL SUCC (TopROL XL) 50MG **XL** TAB PO SCH (08:45)
[2021-01-25] MEDS: CALCIUM/VITAMIN D 500 MG TAB PO SCH (08:45)
[2021-01-25] MEDS: AMIODARONE 200 MG TAB (PACERONE) PO SCH (08:45)
[2021-01-25] MEDS: SPIRONOLACTONE 25 MG TAB PO SCH (08:45)
[2021-01-25] MEDS: PANTOPRAZOLE 40MG TAB (PROTONIX) PO SCH (08:45)
[2021-01-25] MEDS: BENZONATATE 100 MG CAP PO SCH ×3 (08:45→20:37)
[2021-01-25] MEDS: APIXABAN 5 MG TAB (ELIQUIS) PO SCH ×2 (08:45→20:37)
[2021-01-25] MEDS ORDERED: SUCR1ORA PO (13:48)
[2021-01-25] MEDS ORDERED: METO1TAB7 PO (13:48)
[2021-01-25] MEDS ORDERED: ELIQ5TAB PO (13:48)
[2021-01-25] MEDS ORDERED: AMIO200T3 PO (13:48)
[2021-01-25] MEDS ORDERED: CALCD50TA PO (13:48)
[2021-01-25] MEDS ORDERED: ALDA25TA2 PO (13:48)
[2021-01-25] MEDS ORDERED: PANT40TA29 PO (13:48)
[2021-01-25 14:00] VITALS: BP 140/68
[2021-01-25] MEDS: ONDANSETRON 4MG/2ML VIAL IV PRN (15:21)
--- NOTE | 2021-01-25 17:20 | DS.PDOC ---
Discharge Summary General Date of Admission Jan 18, 2021 at 23:18 Date of Discharge 01/25/21 Discharge Summary PROCEDURES PERFORMED DURING STAY: [None]. ADMITTING DIAGNOSES: Cardiac arrest/asystole/tachy-gisele syndrome/Sick sinus syndrome/syncope Atrial fibrillation with rapid ventricular rate Fever History of fall/deconditioning Nausea /vomiting/abdominal pain Back pain/sciatica Diastolic CHF Obesity Microhematuria Cough with eating Coronary artery diseases/hyperlipidemia Abdominal hernia/parastomal hernia Deconditioning DISCHARGE DIAGNOSES: Cardiac arrest/asystole/tachy-gisele syndrome/Sick sinus syndrome/syncope Atrial fibrillation with rapid ventricular rate Fever History of fall/deconditioning Nausea /vomiting/abdominal pain Back pain/sciatica Diastolic CHF Obesity Microhematuria Cough with eating Coronary artery diseases/hyperlipidemia Abdominal hernia/parastomal hernia Deconditioning COMPLICATIONS/CHIEF COMPLAINT: Fall,Fever. HISTORY OF PRESENT ILLNESS: Patient is an 85 year old female with colostomy bag and sciatic who is here for weakness, fall, and abdominal pain. Imaging did not demonstrate any acute intraabdominal pathology. Patient reported history of fall. On 01/20/21, patient went into atrial fibrillation with RVR. HOSPITAL COURSE: During the hospital stay the following issues addressed Cardiac arrest/asystole/tachy-gisele syndrome/Sick sinus syndrome/syncope Around 10 PM on 01/21/21 patient developed asystole during 2 min on the telemetry resolved on its own, following by bradycardia at the rate around 38-40 Troponin was negative, EKG negative for acute ischemic changes Patient developed asystole possibly secondary to beta blockers or underlying cardiac diseases Await echo report Dr Awad placed dual-chamber pacemaker on 01/23/21 Atrial fibrillation with rapid ventricular rate Heart rate is under control Eliquis restarted Fever Unknown etiology, could be related to amoxicillin Resolved Blood culture negative Nausea /vomiting/abdominal pain Resolved CT abdomen/pelvis negative History of fall/deconditioning Could be secondary to cardiac arrhythmia Continue telemetry PT/OT Back pain/sciatica Pain management Diastolic CHF Not in acute exacerbation I's and O's Obesity -BMI 33.6 -Complicates care Microhematuria Could be secondary to nephrolithiasis Follow-up with urologist in the outpatient settings Cough with eating Imaging study negative for stroke Diet was modified Coronary artery diseases/hyperlipidemia Continue statin Abdominal hernia/parastomal hernia Around colostomy bag Surgical team consulted patient, no indication for surgical intervention Deconditioning PT/OT DISCHARGE MEDICATIONS: Please see below. ALLERGIES: Please see below. PHYSICAL EXAMINATION ON DISCHARGE: VITAL SIGNS: Please see below. GENERAL APPEARANCE: Obese female HEENT: no scleral icterus, no JVD, EOMI CARDIOVASCULAR: Irregularly irregular, pacemaker in place LUNGS: Diminished lung sounds bilaterally ABDOMEN: soft & not tender w palpitation, large protrusion around colostomy, bowel sounds present MUSCULOSKELETAL: no cyanosis, no swelling INTEGUMENT: no generalized pallor NEUROLOGICAL: cranial nerve function from 2-12 intact intact, follows commands, speech not dysarthric LABORATORY DATA: Please see below. IMAGING: [facility] NAME: DEAN GARCIA DATE OF : 1935 BUSINESS NUMBER: [id number] AGE: 85 SEX: F REPORT #: [id number] ROOM: ICU TECHNOLOGIST: BECKA DOCTOR: KALE CHO MD Ordered for Date&Time: 01/21/21 7302 cc: [~ rep ct ivnm] Service Date&Time: This report is in Signed status. Interpretation performed by [facility]. Thank you for having your radiology procedures performed at [facility] RADIOLOGY REPORT Date&Time printed: [~ rep prt dt last] [~ rep prt tm last] Page 2 of 2 [place] [id number] RADIOLOGY REPORT This report is in Signed status. Interpretation performed by [facility]. Thank you for having your radiology procedures performed at [facility] RADIOLOGY REPORT Date&Time printed: [~ rep prt dt last] [~ rep prt tm last] Page 1 of 2 PROCEDURE INFORMATION: Exam: CT Angiography Head With Contrast, Arteriography Exam date and time: 01/21/2021 10:48 PM Age: 85 years old Clinical indication: Other: CVA TECHNIQUE: Imaging protocol: Computed tomography angiography of the head with contrast. Exam focused on the arteries. 3D rendering (Not supervised by radiologist): MIP and/or 3D reconstructed images were created by the technologist. Radiation optimization: All CT scans at this facility use at least one of these dose optimization techniques: automated exposure control; mA and/or kV adjustment per patient size (includes targeted exams where dose is matched to clinical indication); or iterative reconstruction. Contrast material: ISO; Contrast volume: 100 ml; Contrast route: INTRAVENOUS (IV); COMPARISON: CT Head without contrast 01/21/2021 10:11 PM FINDINGS: Ventricles, cisterns and sulci are symmetric and appropriate for age. No intracranial mass or focal mass effect. No intracranial hemorrhage, midline shift or acute territorial infarct. Anterior circulation: Normal contrast opacification and luminal caliber in the petrous, cavernous and supraclinoid internal carotid arteries. Normal appearance of the anterior cerebral artery branches and middle cerebral artery branches through the MCA trifurcations. No occlusion, high-grade focal stenosis or dissection. No aneurysm. Posterior circulation: Distal vertebral arteries enhance normally to the vertebrobasilar junction. Normally enhancing, normal caliber basilar artery, and normal superior cerebellar and posterior cerebral arteries. No occlusion, high-grade stenosis or aneurysm. Dural sinuses enhance normally. Bony structures show no acute fracture or destructive process. IMPRESSION: Unremarkable CT Angiogram of the head and [place] of [place]. No intracranial large vessel arterial occlusive or stenotic lesion. ASPECTS ([place] Stroke Program Early CT Score) is 10. Electronically signed by: Leo Gifford On 01/21/2021 23:31:00 PM DD: LEO GIFFORD MD 01/21/218 DT: RIKI 01/21/212330 DS: JOE 01/21/211 [~ rep ct labl] PROGNOSIS: Fair ACTIVITY: [As tolerated]. DIET: Cardiac DISCHARGE INSTRUCTIONS: Follow-up with cardiology office in one week ITEMS TO FOLLOWUP ON ON OUTPATIENT: Follow-up with PCP in 3-5 days DISCHARGE CONDITION: [Stable]. TIME SPENT ON DISCHARGE: 40 minutes. Vital Signs/I&Os Vital Signs Date Time Temp Pulse Resp B/P (MAP) Pulse Ox O2 Delivery O2 Flow Rate FiO2 01/25/21 14:00 97.7 71 16 140/68 (92) 97 Room Air 01/24/21 07:38 2.0 I&O- Last 24 Hours up to 6 AM 01/25/21 06:00 Intake Total 720 ml Output Total 200 ml Balance 520 ml Microbiology Microbiology 01/23/21 Urine Culture - Final, Complete 01/21/21 Blood Culture - Preliminary, Resulted No Growth after 72 hours. All specime... 01/21/21 Blood Culture - Preliminary, Resulted No Growth after 72 hours. All specime... 01/18/21 Respiratory Virus Panel (PCR) (AL[facility]ANDRO) - Final, Complete 01/18/21 Blood Culture - Final, Complete NO GROWTH AFTER 5 DAYS 01/18/21 Blood Culture - Final, Complete NO GROWTH AFTER 5 DAYS Discharge Medications Scheduled Amiodarone HCl (Amiodarone HCl) 200 Mg Tablet, 200 MG PO DAILY Apixaban (Eliquis) 5 Mg Tablet, 5 MG PO BID Calcium Carbonate (Calcium) 600 Mg Tablet, 600 MG PO DAILY, (Reported) Cholecalciferol (Vitamin D3) (Vitamin D3) 1,000 Unit Tablet, 2,000 UNITS PO DAILY, (Reported) Metoprolol Succinate (Metoprolol Succinate) 50 Mg Tab.er.24h, 50 MG PO DAILY Multivitamins (Thera M Plus Tablet) 1 Each Tablet, 1 TAB PO DAILY, (Reported) Pantoprazole Sodium (Pantoprazole Sodium) 40 Mg Tablet.dr, 40 MG PO DAILY Rosuvastatin Calcium (Crestor) 10 Mg Tab, 10 MG PO QPM, (Reported) Spironolactone (Aldactone) 25 Mg Tablet, 25 MG PO QAM Sucralfate (Sucralfate) 1 Gm/10 Ml Oral.susp, 1 GM PO ACHS Torsemide (Torsemide) 5 Mg Tablet, 5 MG PO DAILY, (Reported) Scheduled PRN Acetaminophen (Acetaminophen) 325 Mg Tablet, 650 MG PO Q4-6HP PRN for pain or fever, (Reported) Tramadol HCl (Tramadol HCl) 50 Mg Tablet, 50 MG PO Q6H PRN for pain, (Reported) Allergies Coded Allergies: No Known Allergies (Unverified , 05/18/13) CLAUDIA JAMISON DO Jan 25, 2021 17:19
[2021-01-25 20:00] VITALS: BP 128/71
[2021-01-25] MEDS: ROSUVASTATIN 10 MG TAB (CRESTOR) PO SCH (20:37)
[2021-01-26 06:00] VITALS: BP 129/71
[2021-01-26] MEDS: SUCRALFATE SUSP 1GM/10ML UD PO SCH (08:08)
[2021-01-26] MEDS: SPIRONOLACTONE 25 MG TAB PO SCH (08:10)
[2021-01-26] MEDS: ASCORBIC ACID 250 MG TAB PO SCH (08:10)
[2021-01-26] MEDS: BENZONATATE 100 MG CAP PO SCH (08:10)
[2021-01-26] MEDS: AMIODARONE 200 MG TAB (PACERONE) PO SCH (08:10)
[2021-01-26 08:11] VITALS: BP 128/69
[2021-01-26] MEDS: PANTOPRAZOLE 40MG TAB (PROTONIX) PO SCH (08:11)
[2021-01-26] MEDS: APIXABAN 5 MG TAB (ELIQUIS) PO SCH (08:11)
[2021-01-26] MEDS: CALCIUM/VITAMIN D 500 MG TAB PO SCH (08:11)
[2021-01-26] MEDS: METOPROLOL SUCC (TopROL XL) 50MG **XL** TAB PO SCH (08:11)
== END 2021-01-26 09:35 | disposition home health service (06) | DRG 242 ==
LOC: M ED 18:19 → M ED INP 23:18 → M MSPAV 01-19 02:55 → M ICU 01-21 22:09 → M MSPAV 01-24 17:03
PROVIDERS: ADMIT Internal Medicine; ATTEND Internal Medicine
PROC: 02H63JZ Insertion of Pacemaker Lead into Right Atrium, Percutaneous Approach (ICD-10-PCS; 2021-01-23)
PROC: 02HK3JZ Insertion of Pacemaker Lead into Right Ventricle, Percutaneous Approach (ICD-10-PCS; 2021-01-23)
PROC: 0JH606Z Insertion of Pacemaker, Dual Chamber into Chest Subcutaneous Tissue and Fascia, Open Approach (ICD-10-PCS; principal; 2021-01-23 14:30)
DX: I49.5 Sick sinus syndrome (principal); I46.9 Cardiac arrest, cause unspecified; I50.32 Chronic diastolic (congestive) heart failure; I48.92 Unspecified atrial flutter; R10.9 Unspecified abdominal pain; R50.2 Drug induced fever; R11.0 Nausea; I11.0 Hypertensive heart disease with heart failure; I48.0 Paroxysmal atrial fibrillation; I25.10 Atherosclerotic heart disease of native coronary artery without angina pectoris; E78.5 Hyperlipidemia, unspecified; E66.9 Obesity, unspecified; R29.6 Repeated falls; R31.9 Hematuria, unspecified; Z93.3 Colostomy status; Z68.33 Body mass index [BMI] 33.0-33.9, adult; K43.5 Parastomal hernia without obstruction or gangrene; Z79.899 Other long term (current) drug therapy

== ENCOUNTER → 2021-02-13 | Outpatient (CLI) | payer OTHER, MEDICAID ==
[~2021-02-13] MED LIST changes: +ALDA25TA2 PO; +AMIO200T3 PO; +AMOX500T PO; -AMOXICILLIN 500 MG CAP PO SCH; +CALCD50TA PO; +ELIQ5TAB PO; +LOSA100T50 PO; +METO1TAB7 PO; +PANT40TA29 PO; +SUCR1ORA PO; +TIZA2TA PO
[2021-02-13 14:21] LABS: ALT/SGPT 29 U/L (12-78); BILIRUBIN,TOTAL 0.5 MG/DL (0.2-1.0); BLOOD UREA NITROGEN 18 MG/DL (7-18); CALCIUM LEVEL 9.5 MG/DL (8.8-10.2); CARBON DIOXIDE LEVEL 26 MEQ/L (21-32); CHLORIDE LEVEL 108 MEQ/L (98-107); CREATININE FOR GFR 0.78 MG/DL (0.55-1.30); GLOMERULAR FILTRATION RATE > 60.0 (>32); GLUCOSE, FASTING 93 MG/DL (70-100); NT-PRO BNP 317 PG/ML (<450); POTASSIUM SERUM 4.3 MEQ/L (3.5-5.1); SODIUM LEVEL 142 MEQ/L (136-145); TOTAL PROTEIN 7.1 GM/DL (6.4-8.2)
== END ==
LOC: M PLALAB 11:18
PROVIDERS: ATTEND Physician Assistant Medical
DX: I50.9 Heart failure, unspecified (principal)

== ENCOUNTER → 2021-09-18 | Outpatient (CLI) | payer OTHER, MEDICAID ==
[~2021-09-18] MED LIST changes: -AMIO200T3 PO; +AMIO200T49 PO; -D31000TA2 PO; +LOSA100T45 PO; -LOSA100T50 PO; +VITA100093 PO
[2021-09-18 13:09] LABS: BASO % 0.5 % (0.0-1.0); EOS # 0.1 10^3/uL (0.0-0.5); EOS % 1.6 % (0.0-3.0); HEMATOCRIT 43.4 % (36.0-47.0); HEMOGLOBIN 13.9 g/dl (12.0-15.5); LYMPH # 2.8 10^3/uL (1.5-5.0); LYMPH % 32.7 % (24.0-44.0); MEAN CORPUSCULAR HEMOGLOBIN 30.2 pg (27.0-33.0); MEAN CORPUSCULAR VOLUME 94.3 fl (80.0-96.0); MONO % 11.5 % (2.0-8.0); NEUTROPHILS # 4.5 10^3/uL (1.5-8.5); PLATELET COUNT, AUTOMATED 230 10^3/uL (150-450); WHITE BLOOD COUNT 8.5 10^3/uL (4.0-10.0)
[2021-09-18 13:39] LABS: HEMOGLOBIN A1c 5.5 %
[2021-09-18 14:04] LABS: ALBUMIN 4.2 GM/DL (3.2-5.2); ALT/SGPT 27 U/L (12-78); BILIRUBIN,TOTAL 0.6 MG/DL (0.2-1.0); BLOOD UREA NITROGEN 26 MG/DL (7-18); CALCIUM LEVEL 9.9 MG/DL (8.8-10.2); CARBON DIOXIDE LEVEL 26 MEQ/L (21-32); CHLORIDE LEVEL 105 MEQ/L (98-107); FERRITIN 58 NG/ML (8-252); FREE T4 1.37 NG/DL (0.76-1.46); GLOMERULAR FILTRATION RATE 50.1 (>32); GLUCOSE, FASTING 98 MG/DL (70-100); IRON (FE) 131 UG/DL (50-170); PERCENT SATURATION 30.5 % (13.2-45.0); SODIUM LEVEL 139 MEQ/L (136-145); TOTAL IRON BINDING CAPACITY 430 UG/DL (250-450); TOTAL PROTEIN 7.5 GM/DL (6.4-8.2)
[2021-09-18 15:42] LABS: TOTAL 25(OH) VITAMIN D 16.8 NG/ML (30.0-100.0)
[2021-09-18 15:43] LABS: PTH INTACT 127.1 PG/ML (18.5-88.0)
[2021-09-18 15:53] LABS: VITAMIN B12 LEVEL 436 PG/ML (247-911)
[2021-09-20 13:58] LABS: ALBUMIN 4.52 GM/DL (3.29-5.55); ALBUMIN % 60.2 % (55.8-66.1); ALPHA-1-GLOBULIN % 3.9 % (2.9-4.9); ALPHA-1-GLOBULINS 0.29 GM/DL (0.17-0.41); ALPHA-2-GLOBULINS 0.77 GM/DL (0.42-0.99); ALPHA-2-GLOBULINS % 10.3 % (7.1-11.8); BETA-1-GLOBULINS 0.52 GM/DL (0.28-0.60); BETA-1-GLOBULINS % 6.9 % (4.7-7.2); BETA-2-GLOBULINS 0.41 GM/DL (0.19-0.55); BETA-2-GLOBULINS % 5.4 % (3.2-6.5); GAMMA GLOBULIN % 13.3 % (11.1-18.8)
== END ==
LOC: M PLALAB 10:28
PROVIDERS: ATTEND Family Medicine
DX: D50.9 Iron deficiency anemia, unspecified (principal); R73.01 Impaired fasting glucose; E55.9 Vitamin D deficiency, unspecified; E78.5 Hyperlipidemia, unspecified

== ENCOUNTER → 2021-11-06 | Outpatient (CLI) | payer OTHER, MEDICAID ==
[2021-11-06 16:45] LABS: BASO % 0.4 % (0.0-1.0); HEMATOCRIT 41.6 % (36.0-47.0); HEMOGLOBIN 13.5 g/dl (12.0-15.5); LYMPH # 2.9 10^3/uL (1.5-5.0); LYMPH % 38.4 % (24.0-44.0); MEAN CORPUSCULAR HEMOGLOBIN 29.5 pg (27.0-33.0); MEAN CORPUSCULAR HGB CONC 32.5 g/dl (32.0-36.5); MONO # 1.1 10^3/uL (0.0-0.8); MONO % 15.3 % (2.0-8.0); NEUTROPHILS # 3.4 10^3/uL (1.5-8.5); NEUTROPHILS % 45.4 % (36.0-66.0); PLATELET COUNT, AUTOMATED 214 10^3/uL (150-450); RED BLOOD COUNT 4.57 10^6/uL (4.00-5.40); WHITE BLOOD COUNT 7.4 10^3/uL (4.0-10.0)
[2021-11-06 17:12] LABS: FREE T4 1.32 NG/DL (0.76-1.46); THYROID STIMULATING HORMONE 0.905 uIU/ML (0.358-3.740)
== END ==
LOC: M LAB 16:01
PROVIDERS: ATTEND Physician Assistant
DX: R53.83 Other fatigue (principal)

== ENCOUNTER → 2022-02-26 | Outpatient (CLI) | payer OTHER, MEDICAID | LOC: M WHC 08:32 | PROVIDERS: ATTEND Physician Assistant Medical | DX: Z12.31 Encounter for screening mammogram for malignant neoplasm of breast (principal); M81.0 Age-related osteoporosis without current pathological fracture ==

== ENCOUNTER → 2022-03-18 | Outpatient (CLI) | payer OTHER, MEDICAID | LOC: M WHC 09:22 | PROVIDERS: ATTEND Physician Assistant Medical | DX: R92.2 Inconclusive mammogram (principal) | CPT/HCPCS: 77065; G0279 ==

== ENCOUNTER → 2022-06-24 | Outpatient (CLI) | payer OTHER, MEDICAID ==
[2022-06-24 11:55] LABS: BASO # 0.1 10^3/uL (0.0-0.2); BASO % 0.5 % (0.0-1.0); HEMATOCRIT 40.2 % (36.0-47.0); LYMPH # 2.1 10^3/uL (1.5-5.0); LYMPH % 21.1 % (24.0-44.0); MEAN CORPUSCULAR HEMOGLOBIN 29.1 pg (27.0-33.0); MEAN CORPUSCULAR HGB CONC 32.3 g/dl (32.0-36.5); MEAN CORPUSCULAR VOLUME 90.1 fl (80.0-96.0); MONO # 1.3 10^3/uL (0.0-0.8); MONO % 12.7 % (2.0-8.0); NEUTROPHILS # 6.4 10^3/uL (1.5-8.5); NEUTROPHILS % 64.8 % (36.0-66.0); PLATELET COUNT, AUTOMATED 252 10^3/uL (150-450); RED BLOOD COUNT 4.46 10^6/uL (4.00-5.40); WHITE BLOOD COUNT 9.9 10^3/uL (4.0-10.0)
[2022-06-24 13:59] LABS: HEMOGLOBIN A1c 5.4 % (4.0-6.0)
[2022-06-24 14:16] LABS: ALBUMIN 4.1 G/DL (3.2-5.2); BILIRUBIN,TOTAL 0.7 MG/DL (0.3-1.2); CALCIUM LEVEL 9.6 MG/DL (8.3-10.6); CHOLESTEROL RISK RATIO 2.51 (<5); CREATININE FOR GFR 1.03 MG/DL (0.55-1.30); GLOMERULAR FILTRATION RATE 54.1 (>32); HDL CHOLESTEROL 56.8 MG/DL (>40); LDL CHOLESTEROL 67.6 MG/DL (<100); POTASSIUM SERUM 4.4 MMOL/L (3.5-5.1); PTH INTACT 115.8 PG/ML (18.5-88.0); TOTAL 25(OH) VITAMIN D 24.2 NG/ML (20.0-100.0); TOTAL PROTEIN 7.2 G/DL (5.7-8.2)
[2022-06-24 15:55] LABS: FERRITIN 77.5 NG/ML (7.3-270.7)
== END ==
LOC: M LAB 11:17
PROVIDERS: ATTEND Physician Assistant Medical
DX: R73.01 Impaired fasting glucose (principal); D50.9 Iron deficiency anemia, unspecified; I50.32 Chronic diastolic (congestive) heart failure; E78.5 Hyperlipidemia, unspecified; E55.9 Vitamin D deficiency, unspecified; Z79.899 Other long term (current) drug therapy

== ENCOUNTER 2022-07-12 15:11 | Inpatient (IN) | payer OTHER, MEDICAID ==
[~2022-07-12] VITALS: Ht 165.1 cm; Wt 95.9 kg
[2022-07-12] MEDS ORDERED: ONDANSETRON 4MG 2ML VIAL IV ONE (15:30)
[2022-07-12] MEDS ORDERED: NS 1,000 ML IV ONE (15:35)
[2022-07-12] MEDS ORDERED: ACETAMINOPHEN TAB 650MG DOSE (2X325MG) PO ONE (15:45)
[2022-07-12] MEDS: MORPHINE 2 MG/ML 1ML VIAL IV PRN ×4 (15:56→21:12)
[2022-07-12 16:03] LABS: BASO % 0.3 % (0.0-1.0); HEMATOCRIT 41.5 % (36.0-47.0); HEMOGLOBIN 13.4 g/dl (12.0-15.5); LYMPH # 1.7 10^3/uL (1.5-5.0); LYMPH % 11.4 % (24.0-44.0); MEAN CORPUSCULAR HEMOGLOBIN 29.3 pg (27.0-33.0); MEAN CORPUSCULAR HGB CONC 32.3 g/dl (32.0-36.5); MEAN CORPUSCULAR VOLUME 90.6 fl (80.0-96.0); MONO % 16.7 % (2.0-8.0); NEUTROPHILS # 10.7 10^3/uL (1.5-8.5); NEUTROPHILS % 70.7 % (36.0-66.0); PLATELET COUNT, AUTOMATED 254 10^3/uL (150-450); RED BLOOD COUNT 4.58 10^6/uL (4.00-5.40); WHITE BLOOD COUNT 15.1 10^3/uL (4.0-10.0)
[2022-07-12] MEDS ORDERED: ISOVUE-370 76% 100ML VIAL As Ordered ONE (16:03)
[2022-07-12 16:22] LABS: INR 1.17; PROTHROMBIN TIME 15.1 SECONDS (12.5-14.5)
[2022-07-12 16:23] LABS: PARTIAL THROMBOPLASTIN TIME 41.1 SECONDS (24.8-34.2)
[2022-07-12 16:24] LABS: ALBUMIN 4.1 G/DL (3.2-5.2); BILIRUBIN,DIRECT 0.3 MG/DL (<0.4); BILIRUBIN,TOTAL 0.9 MG/DL (0.3-1.2); TOTAL PROTEIN 7.3 G/DL (5.7-8.2)
[2022-07-12 16:34] LABS: RSV AMPLIFICATION NEGATIVE (NEGATIVE)
[2022-07-12 16:38] LABS: MONO # 2.5 10^3/uL (0.0-0.8)
[2022-07-12] MEDS ORDERED: MORPHINE 2 MG/ML 1ML VIAL IV ONE (18:45)
[2022-07-12] MEDS ORDERED: diazePAM 10MG/2ML SYRINGE IV ONE (19:15)
[2022-07-12] MEDS ORDERED: cefTRIAXone SOD 1 GM in D5W MINI-BAG PLUS 50 ML IV ONE (19:50)
[2022-07-12] MEDS ORDERED: LIDOCAINE 5% (LIDODERM) PATCH TD ONE (20:15)
[2022-07-12] MEDS ORDERED: PANT-23 PO (20:40)
[2022-07-12] MEDS ORDERED: SPIR-10 PO (20:40)
[2022-07-12] MEDS ORDERED: METO1TAB32 PO (20:41)
[2022-07-12] MEDS ORDERED: AMIO200T49 PO (20:41)
[2022-07-12] MEDS ORDERED: ELIQ5TAB PO (20:41)
[2022-07-12] MEDS ORDERED: HOME MED LIST COMPLETE! XX SCH (20:45)
[2022-07-12] MEDS ORDERED: PILL CUTTER 1 EACH XX PRN (22:05)
[2022-07-12 22:57] VITALS: BP 142/67
[2022-07-12] MEDS: HYDROmorphone 2 MG TAB PO PRN (23:07)
[2022-07-12] MEDS ORDERED: KETOROLAC 30 MG/ML 1ML VIAL IV ONE (23:30)
[2022-07-13] MEDS: HYDROmorphone 2 MG TAB PO PRN ×3 (05:24→18:55)
[2022-07-13 05:26] VITALS: BP 123/50
[2022-07-13] MEDS: ROSUVASTATIN 10 MG TAB (CRESTOR) PO SCH (08:47)
[2022-07-13] MEDS: MULTIVITAMINS/MINERALS THERAP 1 TAB PO SCH (08:47)
[2022-07-13] MEDS: AMIODARONE 200 MG TAB (PACERONE) PO SCH (08:47)
[2022-07-13] MEDS: PANTOPRAZOLE 40MG TAB (PROTONIX) PO SCH (08:48)
[2022-07-13] MEDS: VITAMIN D 1,000 INTERNATIONAL UNITS TABLET PO SCH (08:48)
[2022-07-13] MEDS: SPIRONOLACTONE 25 MG TAB PO SCH (08:48)
[2022-07-13] MEDS: METOPROLOL SUCC *XL* 25MG TAB (TopROL *XL*) PO SCH (08:49)
[2022-07-13] MEDS: LIDOCAINE 5% (LIDODERM) PATCH TD SCH (08:50)
[2022-07-13] MEDS ORDERED: FOSFOMYCIN TROMETHAMINE 3 GM POWDER PACKET (MONUROL) PO ONE (09:00)
[2022-07-13] MEDS ORDERED: APIXABAN 5 MG TAB (ELIQUIS) PO SCH (09:00)
[2022-07-13] MEDS: tiZANidine 4 MG TAB PO PRN ×2 (13:49→22:00)
[2022-07-13 14:00] VITALS: BP 114/49
[2022-07-13] MEDS ORDERED: VANCOMYCIN HCL 1,000 MG, VIAL MATE ADAPTER 1 EACH in NS 250 ML IV ONE ×2 (14:00→15:00)
[2022-07-13] MEDS: NS 1,000 ML IV SCH (16:44)
[2022-07-13 20:00] VITALS: BP 140/60
[2022-07-13] MEDS: APIXABAN 5 MG TAB (ELIQUIS) PO SCH (22:00)
[2022-07-14] MEDS ORDERED: VANCOMYCIN HCL 750 MG, VIAL MATE ADAPTER 1 EACH in D5W 250 ML IV ONE ×4 (01:00)
[2022-07-14] MEDS: HYDROmorphone 2 MG TAB PO PRN ×4 (03:50→16:15)
[2022-07-14] MEDS: NS 1,000 ML IV SCH ×2 (05:20→18:40)
[2022-07-14 05:22] VITALS: BP 107/42
[2022-07-14 06:35] LABS: BASO % 0.1 % (0.0-1.0); HEMATOCRIT 36.4 % (36.0-47.0); HEMOGLOBIN 11.7 g/dl (12.0-15.5); LYMPH # 2.2 10^3/uL (1.5-5.0); LYMPH % 10.5 % (24.0-44.0); MEAN CORPUSCULAR HEMOGLOBIN 29.2 pg (27.0-33.0); MEAN CORPUSCULAR HGB CONC 32.1 g/dl (32.0-36.5); MEAN CORPUSCULAR VOLUME 90.8 fl (80.0-96.0); MONO % 27.1 % (2.0-8.0); NEUTROPHILS # 12.7 10^3/uL (1.5-8.5); NEUTROPHILS % 61.5 % (36.0-66.0); PLATELET COUNT, AUTOMATED 206 10^3/uL (150-450); RED BLOOD COUNT 4.01 10^6/uL (4.00-5.40); WHITE BLOOD COUNT 20.6 10^3/uL (4.0-10.0)
[2022-07-14 06:51] LABS: MONO # 5.6 10^3/uL (0.0-0.8)
[2022-07-14 07:22] LABS: CALCIUM LEVEL 8.7 MG/DL (8.3-10.6); CREATININE FOR GFR 1.03 MG/DL (0.55-1.30); GLOMERULAR FILTRATION RATE 54.1 (>32); POTASSIUM SERUM 4.4 MMOL/L (3.5-5.1)
[2022-07-14] MEDS ORDERED: ISOVUE-370 76% 100ML VIAL As Ordered ONE (07:35)
[2022-07-14 07:47] LABS: VANCOMYCIN RANDOM 27.5 UG/ML
[2022-07-14] MEDS ORDERED: cefTRIAXone SOD 1 GM in D5W MINI-BAG PLUS 50 ML IV SCH (08:00)
[2022-07-14] MEDS: LIDOCAINE 5% (LIDODERM) PATCH TD SCH (08:56)
[2022-07-14] MEDS: PANTOPRAZOLE 40MG TAB (PROTONIX) PO SCH (09:00)
[2022-07-14] MEDS: APIXABAN 5 MG TAB (ELIQUIS) PO SCH ×2 (09:00→20:09)
[2022-07-14] MEDS: ROSUVASTATIN 10 MG TAB (CRESTOR) PO SCH (09:00)
[2022-07-14] MEDS: AMIODARONE 200 MG TAB (PACERONE) PO SCH (09:00)
[2022-07-14] MEDS: METOPROLOL SUCC *XL* 25MG TAB (TopROL *XL*) PO SCH (09:00)
[2022-07-14] MEDS: MULTIVITAMINS/MINERALS THERAP 1 TAB PO SCH (09:00)
[2022-07-14] MEDS: SPIRONOLACTONE 25 MG TAB PO SCH (09:01)
[2022-07-14] MEDS: VITAMIN D 1,000 INTERNATIONAL UNITS TABLET PO SCH (09:01)
[2022-07-14 10:27] LABS: C REACTIVE PROTEIN QUANTITATIV 29.6 MG/DL (<1.0)
[2022-07-14] MEDS ORDERED: ERTAPENEM SODIUM 1 GM in NS MINI-BAG PLUS 50 ML IV SCH (11:00)
[2022-07-14 11:35] LABS: ERYTHROCYTE SEDIMENTATION RATE 60 mm/hr (0-30)
[2022-07-14 14:00] VITALS: BP 103/55
[2022-07-14] MEDS: ACETAMINOPHEN TAB 650MG DOSE (2X325MG) PO PRN (17:02)
[2022-07-14] MEDS: tiZANidine 4 MG TAB PO PRN (17:02)
[2022-07-14] MEDS ORDERED: HYDROmorphone 2 MG TAB PO ONE (17:05)
[2022-07-14] MEDS ORDERED: DEXTROSE 50% 50ML SYRINGE IV PRN (18:25)
[2022-07-14] MEDS ORDERED: GLUCOSE 4GM CHEW TABLET PO PRN (18:25)
[2022-07-14] MEDS ORDERED: GLUCAGON INJ 1MG VIAL SC PRN (18:25)
[2022-07-14 20:24] VITALS: BP 105/55
[2022-07-14] MEDS ORDERED: HYDROmorphone 2 MG TAB PO PRN ×2 (21:00)
[2022-07-15] MEDS: HYDROmorphone 2 MG TAB PO PRN ×2 (00:05→08:30)
[2022-07-15] MEDS ORDERED: VANCOMYCIN HCL 750 MG, VIAL MATE ADAPTER 1 EACH in D5W 250 ML IV SCH ×4 (01:00)
[2022-07-15] MEDS: tiZANidine 4 MG TAB PO PRN ×3 (01:16→17:59)
[2022-07-15] MEDS: NORCO, ANEXSIA 5/325MG TABLET (HYDROcodone/ACETAMINOPHEN) PO PRN ×3 (01:55→18:00)
[2022-07-15] MEDS: IPRATROPIUM 0.5MG/ALBUTEROL 2.5MG INH SOL UD 3ML (DUONEB) NEB PRN ×3 (02:16→19:51)
[2022-07-15] MEDS: NS 1,000 ML IV SCH ×2 (03:15→17:56)
[2022-07-15 06:00] VITALS: BP 107/55
[2022-07-15 08:00] LABS: HEMATOCRIT 34.1 % (36.0-47.0); HEMOGLOBIN 11.1 g/dl (12.0-15.5); MEAN CORPUSCULAR HEMOGLOBIN 29.4 pg (27.0-33.0); MEAN CORPUSCULAR HGB CONC 32.6 g/dl (32.0-36.5); MEAN CORPUSCULAR VOLUME 90.2 fl (80.0-96.0); PLATELET COUNT, AUTOMATED 215 10^3/uL (150-450); RED BLOOD COUNT 3.78 10^6/uL (4.00-5.40); WHITE BLOOD COUNT 17.6 10^3/uL (4.0-10.0)
[2022-07-15] MEDS: SPIRONOLACTONE 25 MG TAB PO SCH (08:30)
[2022-07-15] MEDS: AMIODARONE 200 MG TAB (PACERONE) PO SCH (08:30)
[2022-07-15] MEDS: MULTIVITAMINS/MINERALS THERAP 1 TAB PO SCH (08:30)
[2022-07-15] MEDS: VITAMIN D 1,000 INTERNATIONAL UNITS TABLET PO SCH (08:31)
[2022-07-15] MEDS: APIXABAN 5 MG TAB (ELIQUIS) PO SCH ×2 (08:31→20:21)
[2022-07-15] MEDS: ROSUVASTATIN 10 MG TAB (CRESTOR) PO SCH (08:31)
[2022-07-15] MEDS: PANTOPRAZOLE 40MG TAB (PROTONIX) PO SCH (08:31)
[2022-07-15] MEDS: METOPROLOL SUCC *XL* 25MG TAB (TopROL *XL*) PO SCH (08:32)
[2022-07-15] MEDS: LIDOCAINE 5% (LIDODERM) PATCH TD SCH (08:33)
[2022-07-15 08:56] LABS: ALBUMIN 2.9 G/DL (3.2-5.2); ALKALINE PHOSPHATASE 104 U/L (46-116); ALT/SGPT 15 U/L (7.0-40); AST/SGOT 23 U/L (<34); BILIRUBIN,TOTAL 0.6 MG/DL (0.3-1.2); BLOOD UREA NITROGEN 22 MG/DL (9-23); CALCIUM LEVEL 8.7 MG/DL (8.3-10.6); CARBON DIOXIDE LEVEL 25 MMOL/L (20-31); CHLORIDE LEVEL 103 MMOL/L (98-107); CREATININE FOR GFR 0.83 MG/DL (0.55-1.30); GLOMERULAR FILTRATION RATE > 60.0 (>32); GLUCOSE, FASTING 130 MG/DL (74-106); POTASSIUM SERUM 4.4 MMOL/L (3.5-5.1); SODIUM LEVEL 135 MMOL/L (136-145); TOTAL PROTEIN 5.8 G/DL (5.7-8.2)
[2022-07-15] MEDS ORDERED: BACTRIM 160MG/800MG DS TAB PO SCH (09:00)
[2022-07-15] MEDS: ACETAMINOPHEN TAB 650MG DOSE (2X325MG) PO PRN (10:16)
[2022-07-15] MEDS: DOCUSATE SODIUM 100MG CAPSULE PO SCH (11:55)
[2022-07-15] MEDS: MIRALAX *UNIT DOSE* 17GM PACKET PO SCH (11:55)
[2022-07-15 14:00] VITALS: BP 84/56
[2022-07-15] MEDS: VANCOMYCIN HCL 750 MG, VIAL MATE ADAPTER 1 EACH in D5W 250 ML IV SCH (14:15)
[2022-07-15] MEDS ORDERED: NS 500 ML IV ONE ×2 (14:20→16:15)
[2022-07-15] MEDS ORDERED: HYDROmorphone 2 MG TAB PO PRN (16:15)
[2022-07-15] MEDS: LACTOBACILLUS ACIDOPHILUS CAP (BACID) PO SCH (17:21)
[2022-07-15 17:27] VITALS: BP 122/62
[2022-07-15] MEDS ORDERED: methylPREDNISolone 125MG 2ML VIAL IV ONE (18:45)
[2022-07-15] MEDS ORDERED: HYDROMORPHONE HCL 0.5 MG/ 0.5 ML SYRINGE (J1170 PER 1) IV ONE (18:45)
[2022-07-15] MEDS ORDERED: tiZANidine 4 MG TAB PO ONE (18:50)
[2022-07-15] MEDS ORDERED: IPRATROPIUM 0.5MG/ALBUTEROL 2.5MG INH SOL UD 3ML (DUONEB) NEB ONE (18:50)
[2022-07-15] MEDS ORDERED: FUROSEMIDE 20MG/2ML VIAL IV ONE (20:45)
[2022-07-15 21:10] VITALS: BP 120/51
[2022-07-16] MEDS: VANCOMYCIN HCL 750 MG, VIAL MATE ADAPTER 1 EACH in D5W 250 ML IV SCH ×2 (02:15→13:02)
[2022-07-16 06:00] VITALS: BP 112/58
[2022-07-16 06:01] LABS: HEMATOCRIT 32.9 % (36.0-47.0); HEMOGLOBIN 10.4 g/dl (12.0-15.5); MEAN CORPUSCULAR HEMOGLOBIN 28.9 pg (27.0-33.0); MEAN CORPUSCULAR HGB CONC 31.6 g/dl (32.0-36.5); MEAN CORPUSCULAR VOLUME 91.4 fl (80.0-96.0); PLATELET COUNT, AUTOMATED 220 10^3/uL (150-450); WHITE BLOOD COUNT 8.4 10^3/uL (4.0-10.0)
[2022-07-16 06:30] LABS: MAGNESIUM LEVEL 1.9 MG/DL (1.8-2.4)
[2022-07-16 06:32] LABS: BLOOD UREA NITROGEN 22 MG/DL (9-23); CALCIUM LEVEL 8.7 MG/DL (8.3-10.6); CARBON DIOXIDE LEVEL 24 MMOL/L (20-31); CHLORIDE LEVEL 105 MMOL/L (98-107); CREATININE FOR GFR 0.72 MG/DL (0.55-1.30); GLOMERULAR FILTRATION RATE > 60.0 (>32); GLUCOSE, FASTING 173 MG/DL (74-106); POTASSIUM SERUM 4.4 MMOL/L (3.5-5.1); SODIUM LEVEL 138 MMOL/L (136-145)
[2022-07-16] MEDS: VITAMIN D 1,000 INTERNATIONAL UNITS TABLET PO SCH (08:21)
[2022-07-16] MEDS: NORCO, ANEXSIA 5/325MG TABLET (HYDROcodone/ACETAMINOPHEN) PO PRN (08:21)
[2022-07-16] MEDS: APIXABAN 5 MG TAB (ELIQUIS) PO SCH ×2 (08:22→21:05)
[2022-07-16] MEDS: tiZANidine 4 MG TAB PO PRN (08:22)
[2022-07-16] MEDS: MIRALAX *UNIT DOSE* 17GM PACKET PO SCH (08:22)
[2022-07-16] MEDS: ROSUVASTATIN 10 MG TAB (CRESTOR) PO SCH (08:22)
[2022-07-16] MEDS: LACTOBACILLUS ACIDOPHILUS CAP (BACID) PO SCH (08:23)
[2022-07-16] MEDS: MULTIVITAMINS/MINERALS THERAP 1 TAB PO SCH (08:23)
[2022-07-16] MEDS: DOCUSATE SODIUM 100MG CAPSULE PO SCH (08:23)
[2022-07-16] MEDS: AMIODARONE 200 MG TAB (PACERONE) PO SCH (08:24)
[2022-07-16] MEDS: LIDOCAINE 5% (LIDODERM) PATCH TD SCH (08:24)
[2022-07-16] MEDS: PANTOPRAZOLE 40MG TAB (PROTONIX) PO SCH (08:24)
[2022-07-16] MEDS ORDERED: METOPROLOL SUCC *XL* 12.5MG PER 1/2 TAB (TopROL *XL*) PO SCH (09:00)
[2022-07-16] MEDS ORDERED: FUROSEMIDE 20 MG TAB PO SCH (09:00)
[2022-07-16] MEDS ORDERED: LIDOCAINE 1% MDV 20ML VIAL As Ordered ONE (11:11)
[2022-07-16] MEDS: SPIRONOLACTONE 25 MG TAB PO SCH (12:58)
[2022-07-16 14:00] VITALS: BP 131/70
[2022-07-16] MEDS ORDERED: VANCOMYCIN HCL 750 MG, VIAL MATE ADAPTER 1 EACH in D5W 250 ML IV ONE (14:00)
[2022-07-16] MEDS: METOPROLOL SUCC *XL* 12.5MG PER 1/2 TAB (TopROL *XL*) PO SCH (15:13)
[2022-07-16] MEDS ORDERED: CETACAINE SPRAY 5GM As Ordered ONE (15:31)
[2022-07-16] MEDS ORDERED: LIDOCAINE VISCOUS 2% SOLN 15ML UDC As Ordered ONE (15:31)
[2022-07-16] MEDS ORDERED: propofoL 500 MG/50 ML VIAL As Ordered ONE (15:59)
[2022-07-16] MEDS ORDERED: fentaNYL 100 MCG/2 ML INJECTION As Ordered ONE (16:00)
[2022-07-16] MEDS ORDERED: MIDAZOLAM INJ 2MG/2ML VIAL (J2250 PER 1MG) As Ordered ONE (16:00)
[2022-07-16] MEDS ORDERED: LIDOCAINE 2% 100MG/5ML SDV (FOR ANES.) As Ordered ONE (16:01)
[2022-07-16] MEDS: SODIUM CHLORIDE 0.9% INJ 10 ML SYR IV SCH (18:09)
[2022-07-16 20:00] VITALS: BP 131/65
[2022-07-16] MEDS: guaiFENesin SYRUP 200MG 10ML UDC PO PRN (23:13)
[2022-07-16] MEDS: IPRATROPIUM 0.5MG/ALBUTEROL 2.5MG INH SOL UD 3ML (DUONEB) NEB PRN (23:39)
[2022-07-17 00:34] LABS: VENOUS BASE EXCESS 0.7 (-2.0-2.0); VENOUS HCO3 25.2 MEQ/L (23.0-27.0); VENOUS O2 SATURATION 85.1 % (60.0-80.0); VENOUS PARTIAL PRESSURE O2 47.8 mmHg (30.0-50.0); VENOUS PH 7.417 UNITS (7.330-7.430); VENOUS STANDARD HCO3 24.8 MEQ/L; VENOUS TOTAL CO2 26.4 MEQ/L (24.0-28.0)
[2022-07-17] MEDS: RAMELTEON 8 MG TAB (ROZEREM) PO PRN ×2 (01:01→20:51)
[2022-07-17] MEDS: SODIUM CHLORIDE 0.9% INJ 10 ML SYR IV SCH ×2 (05:07→18:00)
[2022-07-17 07:20] LABS: HEMATOCRIT 35.7 % (36.0-47.0); HEMOGLOBIN 11.5 g/dl (12.0-15.5); MEAN CORPUSCULAR HEMOGLOBIN 29.1 pg (27.0-33.0); MEAN CORPUSCULAR HGB CONC 32.2 g/dl (32.0-36.5); MEAN CORPUSCULAR VOLUME 90.4 fl (80.0-96.0); PLATELET COUNT, AUTOMATED 308 10^3/uL (150-450); RED BLOOD COUNT 3.95 10^6/uL (4.00-5.40); WHITE BLOOD COUNT 16.6 10^3/uL (4.0-10.0)
[2022-07-17 07:39] LABS: MAGNESIUM LEVEL 1.9 MG/DL (1.8-2.4)
[2022-07-17 07:44] LABS: CALCIUM LEVEL 9.3 MG/DL (8.3-10.6); CREATININE FOR GFR 0.96 MG/DL (0.55-1.30); GLOMERULAR FILTRATION RATE 58.7 (>32)
[2022-07-17 08:31] VITALS: BP 145/67
[2022-07-17] MEDS: DOCUSATE SODIUM 100MG CAPSULE PO SCH (08:45)
[2022-07-17] MEDS: PANTOPRAZOLE 40MG TAB (PROTONIX) PO SCH (08:45)
[2022-07-17] MEDS: NORCO, ANEXSIA 5/325MG TABLET (HYDROcodone/ACETAMINOPHEN) PO PRN ×2 (08:46→13:21)
[2022-07-17] MEDS: APIXABAN 5 MG TAB (ELIQUIS) PO SCH ×2 (08:47→20:51)
[2022-07-17] MEDS: LACTOBACILLUS ACIDOPHILUS CAP (BACID) PO SCH (08:47)
[2022-07-17] MEDS: VITAMIN D 1,000 INTERNATIONAL UNITS TABLET PO SCH (08:47)
[2022-07-17] MEDS: MULTIVITAMINS/MINERALS THERAP 1 TAB PO SCH (08:47)
[2022-07-17] MEDS: AMIODARONE 200 MG TAB (PACERONE) PO SCH (08:48)
[2022-07-17] MEDS: SPIRONOLACTONE 25 MG TAB PO SCH (08:49)
[2022-07-17] MEDS: METOPROLOL SUCC *XL* 12.5MG PER 1/2 TAB (TopROL *XL*) PO SCH (08:49)
[2022-07-17] MEDS: LIDOCAINE 5% (LIDODERM) PATCH TD SCH (08:50)
[2022-07-17] MEDS ORDERED: SPIRONOLACTONE 25 MG TAB PO SCH (09:00)
[2022-07-17] MEDS: MIRALAX *UNIT DOSE* 17GM PACKET PO SCH (09:00)
[2022-07-17] MEDS: ROSUVASTATIN 10 MG TAB (CRESTOR) PO SCH (09:00)
[2022-07-17] MEDS ORDERED: METO1TAB32 PO (10:48)
[2022-07-17] MEDS ORDERED: LIDO5TD TD (10:48)
[2022-07-17] MEDS ORDERED: DICL1GEL3 TOP (11:10)
[2022-07-17 14:00] VITALS: BP 124/62
[2022-07-17] MEDS: VANCOMYCIN HCL 750 MG, VIAL MATE ADAPTER 1 EACH in D5W 250 ML IV SCH ×2 (14:33→15:41)
[2022-07-17] MEDS: ACETAMINOPHEN TAB 650MG DOSE (2X325MG) PO PRN (14:38)
[2022-07-17] MEDS: ANALGESIC BALM CRM 3OZ TOP SCH (20:50)
[2022-07-17] MEDS: oxyCODONE 5MG TAB PO PRN (20:51)
[2022-07-17 21:00] VITALS: BP 140/66
[2022-07-17] MEDS: ACETAMINOPHEN 500 MG TAB PO PRN (23:25)
[2022-07-18] MEDS: guaiFENesin SYRUP 200MG 10ML UDC PO PRN ×2 (00:26→20:39)
[2022-07-18] MEDS: MORPHINE 2 MG/ML 1ML VIAL IV PRN ×2 (02:06→10:25)
[2022-07-18] MEDS: SODIUM CHLORIDE 0.9% INJ 10 ML SYR IV SCH ×2 (05:21→16:36)
[2022-07-18 05:24] VITALS: BP 129/66
[2022-07-18 06:25] LABS: HEMATOCRIT 31.6 % (36.0-47.0); MEAN CORPUSCULAR HEMOGLOBIN 28.8 pg (27.0-33.0); MEAN CORPUSCULAR HGB CONC 31.6 g/dl (32.0-36.5); MEAN CORPUSCULAR VOLUME 91.1 fl (80.0-96.0); PLATELET COUNT, AUTOMATED 248 10^3/uL (150-450); RED BLOOD COUNT 3.47 10^6/uL (4.00-5.40); WHITE BLOOD COUNT 9.9 10^3/uL (4.0-10.0)
[2022-07-18 06:36] LABS: MAGNESIUM LEVEL 1.8 MG/DL (1.8-2.4)
[2022-07-18 06:38] LABS: BLOOD UREA NITROGEN 27 MG/DL (9-23); CALCIUM LEVEL 8.4 MG/DL (8.3-10.6); CARBON DIOXIDE LEVEL 28 MMOL/L (20-31); CHLORIDE LEVEL 106 MMOL/L (98-107); CREATININE FOR GFR 0.79 MG/DL (0.55-1.30); GLOMERULAR FILTRATION RATE > 60.0 (>32); GLUCOSE, FASTING 103 MG/DL (74-106); PHOSPHORUS LEVEL 3.4 MG/DL (2.4-5.1); SODIUM LEVEL 141 MMOL/L (136-145)
[2022-07-18] MEDS: oxyCODONE 5MG TAB PO PRN ×2 (07:17→13:56)
[2022-07-18] MEDS ORDERED: oxyCODONE 10 MG CR TAB PO SCH (09:00)
[2022-07-18] MEDS: MIRALAX *UNIT DOSE* 17GM PACKET PO SCH (09:00)
[2022-07-18] MEDS: SODIUM CHLORIDE 0.9% INJ 10 ML SYR IV PRN (10:29)
[2022-07-18] MEDS: MULTIVITAMINS/MINERALS THERAP 1 TAB PO SCH (10:30)
[2022-07-18] MEDS: LACTOBACILLUS ACIDOPHILUS CAP (BACID) PO SCH (10:30)
[2022-07-18] MEDS: DOCUSATE SODIUM 100MG CAPSULE PO SCH (10:30)
[2022-07-18] MEDS: SPIRONOLACTONE 25 MG TAB PO SCH (10:30)
[2022-07-18] MEDS: VITAMIN D 1,000 INTERNATIONAL UNITS TABLET PO SCH (10:30)
[2022-07-18] MEDS: AMIODARONE 200 MG TAB (PACERONE) PO SCH (10:30)
[2022-07-18] MEDS: PANTOPRAZOLE 40MG TAB (PROTONIX) PO SCH (10:31)
[2022-07-18] MEDS: ROSUVASTATIN 10 MG TAB (CRESTOR) PO SCH (10:31)
[2022-07-18] MEDS: APIXABAN 5 MG TAB (ELIQUIS) PO SCH ×2 (10:31→20:39)
[2022-07-18] MEDS: METOPROLOL SUCC *XL* 12.5MG PER 1/2 TAB (TopROL *XL*) PO SCH (10:31)
[2022-07-18] MEDS: ANALGESIC BALM CRM 3OZ TOP SCH ×2 (10:32→20:41)
[2022-07-18] MEDS: LIDOCAINE 5% (LIDODERM) PATCH TD SCH (10:32)
[2022-07-18] MEDS: ACETAMINOPHEN 500 MG TAB PO PRN ×2 (10:35→18:51)
[2022-07-18] MEDS: VANCOMYCIN HCL 750 MG, VIAL MATE ADAPTER 1 EACH in D5W 250 ML IV SCH ×2 (14:11)
[2022-07-18] MEDS: RAMELTEON 8 MG TAB (ROZEREM) PO PRN (20:39)
[2022-07-18] MEDS: oxyCODONE 10 MG CR TAB PO SCH (20:40)
[2022-07-19] MEDS: oxyCODONE 5MG TAB PO PRN ×2 (04:50→10:52)
[2022-07-19] MEDS: SODIUM CHLORIDE 0.9% INJ 10 ML SYR IV SCH ×2 (05:00→16:32)
[2022-07-19 06:00] VITALS: BP 134/66
[2022-07-19 06:24] LABS: HEMATOCRIT 32.4 % (36.0-47.0); HEMOGLOBIN 10.4 g/dl (12.0-15.5); MEAN CORPUSCULAR HEMOGLOBIN 29.3 pg (27.0-33.0); MEAN CORPUSCULAR HGB CONC 32.1 g/dl (32.0-36.5); MEAN CORPUSCULAR VOLUME 91.3 fl (80.0-96.0); PLATELET COUNT, AUTOMATED 257 10^3/uL (150-450); RED BLOOD COUNT 3.55 10^6/uL (4.00-5.40); WHITE BLOOD COUNT 10.2 10^3/uL (4.0-10.0)
[2022-07-19 06:44] LABS: MAGNESIUM LEVEL 1.9 MG/DL (1.8-2.4)
[2022-07-19 06:46] LABS: BLOOD UREA NITROGEN 20 MG/DL (9-23); CALCIUM LEVEL 8.3 MG/DL (8.3-10.6); CARBON DIOXIDE LEVEL 24 MMOL/L (20-31); CHLORIDE LEVEL 104 MMOL/L (98-107); CREATININE FOR GFR 0.72 MG/DL (0.55-1.30); GLOMERULAR FILTRATION RATE > 60.0 (>32); GLUCOSE, FASTING 113 MG/DL (74-106); PHOSPHORUS LEVEL 3.5 MG/DL (2.4-5.1); POTASSIUM SERUM 3.8 MMOL/L (3.5-5.1); SODIUM LEVEL 140 MMOL/L (136-145)
[2022-07-19] MEDS: METOPROLOL SUCC *XL* 12.5MG PER 1/2 TAB (TopROL *XL*) PO SCH (08:15)
[2022-07-19] MEDS: MULTIVITAMINS/MINERALS THERAP 1 TAB PO SCH (08:16)
[2022-07-19] MEDS: ROSUVASTATIN 10 MG TAB (CRESTOR) PO SCH (08:16)
[2022-07-19] MEDS: LACTOBACILLUS ACIDOPHILUS CAP (BACID) PO SCH (08:16)
[2022-07-19] MEDS: APIXABAN 5 MG TAB (ELIQUIS) PO SCH ×2 (08:16→20:33)
[2022-07-19] MEDS: DOCUSATE SODIUM 100MG CAPSULE PO SCH (08:16)
[2022-07-19] MEDS: AMIODARONE 200 MG TAB (PACERONE) PO SCH (08:16)
[2022-07-19] MEDS: SPIRONOLACTONE 25 MG TAB PO SCH (08:16)
[2022-07-19] MEDS: PANTOPRAZOLE 40MG TAB (PROTONIX) PO SCH (08:16)
[2022-07-19] MEDS: VITAMIN D 1,000 INTERNATIONAL UNITS TABLET PO SCH (08:16)
[2022-07-19] MEDS: ACETAMINOPHEN 500 MG TAB PO PRN ×2 (08:17→20:32)
[2022-07-19] MEDS: oxyCODONE 10 MG CR TAB PO SCH ×2 (08:18→20:33)
[2022-07-19] MEDS: MIRALAX *UNIT DOSE* 17GM PACKET PO SCH (08:18)
[2022-07-19] MEDS: ANALGESIC BALM CRM 3OZ TOP SCH ×2 (08:19→20:34)
[2022-07-19] MEDS: LIDOCAINE 5% (LIDODERM) PATCH TD SCH (11:22)
[2022-07-19] MEDS: VANCOMYCIN HCL 750 MG, VIAL MATE ADAPTER 1 EACH in D5W 250 ML IV SCH ×2 (14:57→16:30)
[2022-07-19 20:01] VITALS: BP 130/58
[2022-07-20] MEDS: oxyCODONE 5MG TAB PO PRN (02:29)
[2022-07-20] MEDS: ACETAMINOPHEN 500 MG TAB PO PRN (03:26)
[2022-07-20] MEDS: SODIUM CHLORIDE 0.9% INJ 10 ML SYR IV SCH ×2 (04:49→17:14)
[2022-07-20] MEDS ORDERED: MORPHINE 2 MG/ML 1ML VIAL IV ONE (05:00)
[2022-07-20 06:00] VITALS: BP 143/81
[2022-07-20 07:30] LABS: HEMATOCRIT 32.7 % (36.0-47.0); HEMOGLOBIN 10.3 g/dl (12.0-15.5); MEAN CORPUSCULAR HEMOGLOBIN 28.9 pg (27.0-33.0); MEAN CORPUSCULAR HGB CONC 31.5 g/dl (32.0-36.5); MEAN CORPUSCULAR VOLUME 91.6 fl (80.0-96.0); PLATELET COUNT, AUTOMATED 277 10^3/uL (150-450); RED BLOOD COUNT 3.57 10^6/uL (4.00-5.40); WHITE BLOOD COUNT 10.8 10^3/uL (4.0-10.0)
[2022-07-20 07:56] LABS: MAGNESIUM LEVEL 1.8 MG/DL (1.8-2.4)
[2022-07-20 07:58] LABS: BLOOD UREA NITROGEN 19 MG/DL (9-23); CALCIUM LEVEL 8.4 MG/DL (8.3-10.6); CARBON DIOXIDE LEVEL 26 MMOL/L (20-31); CHLORIDE LEVEL 103 MMOL/L (98-107); CREATININE FOR GFR 0.76 MG/DL (0.55-1.30); GLOMERULAR FILTRATION RATE > 60.0 (>32); GLUCOSE, FASTING 103 MG/DL (74-106); SODIUM LEVEL 139 MMOL/L (136-145)
[2022-07-20] MEDS: LIDOCAINE 5% (LIDODERM) PATCH TD SCH (09:14)
[2022-07-20] MEDS: MIRALAX *UNIT DOSE* 17GM PACKET PO SCH (09:14)
[2022-07-20] MEDS: MULTIVITAMINS/MINERALS THERAP 1 TAB PO SCH (09:14)
[2022-07-20] MEDS: PANTOPRAZOLE 40MG TAB (PROTONIX) PO SCH (09:14)
[2022-07-20] MEDS: ROSUVASTATIN 10 MG TAB (CRESTOR) PO SCH (09:14)
[2022-07-20] MEDS: DOCUSATE SODIUM 100MG CAPSULE PO SCH (09:14)
[2022-07-20] MEDS: ANALGESIC BALM CRM 3OZ TOP SCH ×2 (09:14→21:15)
[2022-07-20] MEDS: LACTOBACILLUS ACIDOPHILUS CAP (BACID) PO SCH (09:14)
[2022-07-20] MEDS: AMIODARONE 200 MG TAB (PACERONE) PO SCH (09:15)
[2022-07-20] MEDS: APIXABAN 5 MG TAB (ELIQUIS) PO SCH ×2 (09:15→21:17)
[2022-07-20] MEDS: SPIRONOLACTONE 25 MG TAB PO SCH (09:15)
[2022-07-20] MEDS: VITAMIN D 1,000 INTERNATIONAL UNITS TABLET PO SCH (09:15)
[2022-07-20] MEDS: METOPROLOL SUCC *XL* 12.5MG PER 1/2 TAB (TopROL *XL*) PO SCH (09:16)
[2022-07-20] MEDS: oxyCODONE 10 MG CR TAB PO SCH ×2 (09:16→21:17)
[2022-07-20] MEDS: VANCOMYCIN HCL 750 MG, VIAL MATE ADAPTER 1 EACH in D5W 250 ML IV SCH ×2 (14:26→15:53)
[2022-07-21 05:39] VITALS: BP 142/72
[2022-07-21] MEDS: SODIUM CHLORIDE 0.9% INJ 10 ML SYR IV SCH ×2 (05:44→17:07)
[2022-07-21 06:44] LABS: HEMATOCRIT 34.6 % (36.0-47.0); HEMOGLOBIN 10.9 g/dl (12.0-15.5); MEAN CORPUSCULAR HEMOGLOBIN 28.6 pg (27.0-33.0); MEAN CORPUSCULAR HGB CONC 31.5 g/dl (32.0-36.5); MEAN CORPUSCULAR VOLUME 90.8 fl (80.0-96.0); PLATELET COUNT, AUTOMATED 309 10^3/uL (150-450); RED BLOOD COUNT 3.81 10^6/uL (4.00-5.40); WHITE BLOOD COUNT 13.5 10^3/uL (4.0-10.0)
[2022-07-21 07:18] LABS: MAGNESIUM LEVEL 1.8 MG/DL (1.8-2.4)
[2022-07-21 07:20] LABS: BLOOD UREA NITROGEN 19 MG/DL (9-23); CALCIUM LEVEL 8.5 MG/DL (8.3-10.6); CARBON DIOXIDE LEVEL 29 MMOL/L (20-31); CHLORIDE LEVEL 100 MMOL/L (98-107); CREATININE FOR GFR 0.72 MG/DL (0.55-1.30); GLOMERULAR FILTRATION RATE > 60.0 (>32); GLUCOSE, FASTING 109 MG/DL (74-106); POTASSIUM SERUM 4.3 MMOL/L (3.5-5.1); SODIUM LEVEL 136 MMOL/L (136-145)
[2022-07-21] MEDS: AMIODARONE 200 MG TAB (PACERONE) PO SCH (09:01)
[2022-07-21] MEDS: MIRALAX *UNIT DOSE* 17GM PACKET PO SCH (09:01)
[2022-07-21] MEDS: SPIRONOLACTONE 25 MG TAB PO SCH (09:01)
[2022-07-21] MEDS: VITAMIN D 1,000 INTERNATIONAL UNITS TABLET PO SCH (09:01)
[2022-07-21] MEDS: ROSUVASTATIN 10 MG TAB (CRESTOR) PO SCH (09:02)
[2022-07-21] MEDS: DOCUSATE SODIUM 100MG CAPSULE PO SCH (09:02)
[2022-07-21] MEDS: PANTOPRAZOLE 40MG TAB (PROTONIX) PO SCH (09:02)
[2022-07-21] MEDS: MULTIVITAMINS/MINERALS THERAP 1 TAB PO SCH (09:02)
[2022-07-21] MEDS: LACTOBACILLUS ACIDOPHILUS CAP (BACID) PO SCH (09:02)
[2022-07-21] MEDS: APIXABAN 5 MG TAB (ELIQUIS) PO SCH ×2 (09:02→20:36)
[2022-07-21] MEDS: METOPROLOL SUCC *XL* 12.5MG PER 1/2 TAB (TopROL *XL*) PO SCH (09:02)
[2022-07-21] MEDS: oxyCODONE 10 MG CR TAB PO SCH ×2 (09:03→21:32)
[2022-07-21] MEDS: oxyCODONE 5MG TAB PO PRN ×2 (09:03→18:59)
[2022-07-21] MEDS: ANALGESIC BALM CRM 3OZ TOP SCH ×2 (09:04→18:59)
[2022-07-21] MEDS: LIDOCAINE 5% (LIDODERM) PATCH TD SCH (09:05)
[2022-07-21] MEDS: ACETAMINOPHEN 500 MG TAB PO PRN ×2 (12:27→20:36)
[2022-07-21] MEDS: VANCOMYCIN HCL 750 MG, VIAL MATE ADAPTER 1 EACH in D5W 250 ML IV SCH ×2 (15:03→15:04)
[2022-07-22] MEDS: SODIUM CHLORIDE 0.9% INJ 10 ML SYR IV SCH ×2 (05:28→17:57)
[2022-07-22 05:42] VITALS: BP 129/67
[2022-07-22 06:38] LABS: HEMATOCRIT 32.8 % (36.0-47.0); HEMOGLOBIN 10.5 g/dl (12.0-15.5); MEAN CORPUSCULAR HEMOGLOBIN 29.1 pg (27.0-33.0); MEAN CORPUSCULAR VOLUME 90.9 fl (80.0-96.0); PLATELET COUNT, AUTOMATED 305 10^3/uL (150-450); RED BLOOD COUNT 3.61 10^6/uL (4.00-5.40); WHITE BLOOD COUNT 10.4 10^3/uL (4.0-10.0)
[2022-07-22 07:12] LABS: MAGNESIUM LEVEL 1.9 MG/DL (1.8-2.4)
[2022-07-22 07:14] LABS: BLOOD UREA NITROGEN 17 MG/DL (9-23); CALCIUM LEVEL 8.4 MG/DL (8.3-10.6); CARBON DIOXIDE LEVEL 30 MMOL/L (20-31); CHLORIDE LEVEL 101 MMOL/L (98-107); CREATININE FOR GFR 0.76 MG/DL (0.55-1.30); GLOMERULAR FILTRATION RATE > 60.0 (>32); GLUCOSE, FASTING 93 MG/DL (74-106); POTASSIUM SERUM 4.4 MMOL/L (3.5-5.1); SODIUM LEVEL 138 MMOL/L (136-145)
[2022-07-22] MEDS: PANTOPRAZOLE 40MG TAB (PROTONIX) PO SCH (07:48)
[2022-07-22] MEDS: SPIRONOLACTONE 25 MG TAB PO SCH (07:49)
[2022-07-22] MEDS: MULTIVITAMINS/MINERALS THERAP 1 TAB PO SCH (07:49)
[2022-07-22] MEDS: ROSUVASTATIN 10 MG TAB (CRESTOR) PO SCH (07:49)
[2022-07-22] MEDS: oxyCODONE 10 MG CR TAB PO SCH ×2 (07:50→20:42)
[2022-07-22] MEDS: oxyCODONE 5MG TAB PO PRN ×2 (07:51→18:11)
[2022-07-22] MEDS: LACTOBACILLUS ACIDOPHILUS CAP (BACID) PO SCH (07:52)
[2022-07-22] MEDS: METOPROLOL SUCC *XL* 12.5MG PER 1/2 TAB (TopROL *XL*) PO SCH (07:52)
[2022-07-22] MEDS: LIDOCAINE 5% (LIDODERM) PATCH TD SCH (07:52)
[2022-07-22] MEDS: VITAMIN D 1,000 INTERNATIONAL UNITS TABLET PO SCH (07:52)
[2022-07-22] MEDS: DOCUSATE SODIUM 100MG CAPSULE PO SCH (07:52)
[2022-07-22] MEDS: APIXABAN 5 MG TAB (ELIQUIS) PO SCH ×2 (07:52→20:41)
[2022-07-22] MEDS: MIRALAX *UNIT DOSE* 17GM PACKET PO SCH (07:52)
[2022-07-22] MEDS: ANALGESIC BALM CRM 3OZ TOP SCH ×2 (07:53→20:43)
[2022-07-22] MEDS: AMIODARONE 200 MG TAB (PACERONE) PO SCH (07:54)
[2022-07-22] MEDS: ACETAMINOPHEN 500 MG TAB PO PRN (13:34)
[2022-07-22] MEDS: VANCOMYCIN HCL 750 MG, VIAL MATE ADAPTER 1 EACH in D5W 250 ML IV SCH ×2 (13:54→13:55)
[2022-07-22] MEDS: SODIUM CHLORIDE 0.9% INJ 10 ML SYR IV PRN (16:11)
[2022-07-22] MEDS: RAMELTEON 8 MG TAB (ROZEREM) PO PRN (20:41)
[2022-07-22] MEDS: SENNA 8.6 MG TAB (SENOKOT) PO PRN (20:41)
[2022-07-22] MEDS ORDERED: MORPHINE 2 MG/ML 1ML VIAL IV ONE (23:40)
[2022-07-23] MEDS: SODIUM CHLORIDE 0.9% INJ 10 ML SYR IV PRN (00:54)
[2022-07-23 05:00] VITALS: BP 124/63
[2022-07-23] MEDS: SODIUM CHLORIDE 0.9% INJ 10 ML SYR IV SCH ×2 (05:48→18:49)
[2022-07-23] MEDS: SPIRONOLACTONE 25 MG TAB PO SCH (08:28)
[2022-07-23] MEDS: AMIODARONE 200 MG TAB (PACERONE) PO SCH (08:29)
[2022-07-23] MEDS: LIDOCAINE 5% (LIDODERM) PATCH TD SCH (08:29)
[2022-07-23] MEDS: MULTIVITAMINS/MINERALS THERAP 1 TAB PO SCH (08:29)
[2022-07-23] MEDS: APIXABAN 5 MG TAB (ELIQUIS) PO SCH ×2 (08:29→21:01)
[2022-07-23] MEDS: DOCUSATE SODIUM 100MG CAPSULE PO SCH (08:30)
[2022-07-23] MEDS: METOPROLOL SUCC *XL* 12.5MG PER 1/2 TAB (TopROL *XL*) PO SCH (08:30)
[2022-07-23] MEDS: ROSUVASTATIN 10 MG TAB (CRESTOR) PO SCH (08:30)
[2022-07-23] MEDS: MIRALAX *UNIT DOSE* 17GM PACKET PO SCH (08:30)
[2022-07-23] MEDS: PANTOPRAZOLE 40MG TAB (PROTONIX) PO SCH (08:30)
[2022-07-23] MEDS: VITAMIN D 1,000 INTERNATIONAL UNITS TABLET PO SCH (08:30)
[2022-07-23] MEDS: LACTOBACILLUS ACIDOPHILUS CAP (BACID) PO SCH (08:30)
[2022-07-23] MEDS: oxyCODONE 10 MG CR TAB PO SCH (08:35)
[2022-07-23] MEDS: ANALGESIC BALM CRM 3OZ TOP SCH ×2 (08:40→21:03)
[2022-07-23] MEDS: VANCOMYCIN HCL 750 MG, VIAL MATE ADAPTER 1 EACH in D5W 250 ML IV SCH ×2 (15:48→17:00)
[2022-07-23] MEDS: SENNA 8.6 MG TAB (SENOKOT) PO PRN (21:01)
[2022-07-23] MEDS: oxyCODONE 15MG CR TAB PO SCH (21:03)
[2022-07-24] MEDS: SODIUM CHLORIDE 0.9% INJ 10 ML SYR IV SCH ×2 (05:35→17:49)
[2022-07-24 06:34] VITALS: BP 123/63
[2022-07-24] MEDS: MIRALAX *UNIT DOSE* 17GM PACKET PO SCH (08:56)
[2022-07-24] MEDS: LACTOBACILLUS ACIDOPHILUS CAP (BACID) PO SCH (08:57)
[2022-07-24] MEDS: SPIRONOLACTONE 25 MG TAB PO SCH (08:57)
[2022-07-24] MEDS: APIXABAN 5 MG TAB (ELIQUIS) PO SCH ×2 (08:57→21:21)
[2022-07-24] MEDS: METOPROLOL SUCC *XL* 12.5MG PER 1/2 TAB (TopROL *XL*) PO SCH (08:57)
[2022-07-24] MEDS: LIDOCAINE 5% (LIDODERM) PATCH TD SCH (08:57)
[2022-07-24] MEDS: DOCUSATE SODIUM 100MG CAPSULE PO SCH (08:57)
[2022-07-24] MEDS: ROSUVASTATIN 10 MG TAB (CRESTOR) PO SCH (08:57)
[2022-07-24] MEDS: PANTOPRAZOLE 40MG TAB (PROTONIX) PO SCH (08:57)
[2022-07-24] MEDS: AMIODARONE 200 MG TAB (PACERONE) PO SCH (08:57)
[2022-07-24] MEDS: VITAMIN D 1,000 INTERNATIONAL UNITS TABLET PO SCH (08:58)
[2022-07-24] MEDS: MULTIVITAMINS/MINERALS THERAP 1 TAB PO SCH (08:58)
[2022-07-24] MEDS: oxyCODONE 15MG CR TAB PO SCH ×2 (08:58→21:22)
[2022-07-24] MEDS: ANALGESIC BALM CRM 3OZ TOP SCH ×2 (08:59→21:23)
[2022-07-24] MEDS: VANCOMYCIN HCL 750 MG, VIAL MATE ADAPTER 1 EACH in D5W 250 ML IV SCH ×2 (14:47→16:13)
[2022-07-25 06:00] VITALS: BP 127/64
[2022-07-25] MEDS: SODIUM CHLORIDE 0.9% INJ 10 ML SYR IV SCH ×2 (06:11→16:00)
[2022-07-25 09:03] LABS: BLOOD UREA NITROGEN 17 MG/DL (9-23); CALCIUM LEVEL 8.8 MG/DL (8.3-10.6); CARBON DIOXIDE LEVEL 24 MMOL/L (20-31); CHLORIDE LEVEL 102 MMOL/L (98-107); CREATININE FOR GFR 0.91 MG/DL (0.55-1.30); GLOMERULAR FILTRATION RATE > 60.0 (>32); GLUCOSE, FASTING 95 MG/DL (74-106); POTASSIUM SERUM 4.4 MMOL/L (3.5-5.1); SODIUM LEVEL 138 MMOL/L (136-145)
[2022-07-25] MEDS: APIXABAN 5 MG TAB (ELIQUIS) PO SCH ×2 (09:37→20:20)
[2022-07-25] MEDS: LACTOBACILLUS ACIDOPHILUS CAP (BACID) PO SCH (09:37)
[2022-07-25] MEDS: ROSUVASTATIN 10 MG TAB (CRESTOR) PO SCH (09:37)
[2022-07-25] MEDS: DOCUSATE SODIUM 100MG CAPSULE PO SCH (09:37)
[2022-07-25] MEDS: SPIRONOLACTONE 25 MG TAB PO SCH (09:37)
[2022-07-25] MEDS: MULTIVITAMINS/MINERALS THERAP 1 TAB PO SCH (09:37)
[2022-07-25] MEDS: AMIODARONE 200 MG TAB (PACERONE) PO SCH (09:37)
[2022-07-25] MEDS: VITAMIN D 1,000 INTERNATIONAL UNITS TABLET PO SCH (09:38)
[2022-07-25] MEDS: METOPROLOL SUCC *XL* 12.5MG PER 1/2 TAB (TopROL *XL*) PO SCH (09:38)
[2022-07-25] MEDS: oxyCODONE 15MG CR TAB PO SCH ×2 (09:39→20:21)
[2022-07-25] MEDS: PANTOPRAZOLE 40MG TAB (PROTONIX) PO SCH (09:40)
[2022-07-25] MEDS: LIDOCAINE 5% (LIDODERM) PATCH TD SCH (09:40)
[2022-07-25] MEDS: MIRALAX *UNIT DOSE* 17GM PACKET PO SCH (09:40)
[2022-07-25] MEDS: ANALGESIC BALM CRM 3OZ TOP SCH ×2 (09:40→20:21)
[2022-07-25] MEDS ORDERED: BACLOFEN 10 MG TAB PO ONE (13:20)
[2022-07-25] MEDS: VANCOMYCIN HCL 750 MG, VIAL MATE ADAPTER 1 EACH in D5W 250 ML IV SCH ×2 (14:36→15:57)
[2022-07-25] MEDS: oxyCODONE 5MG TAB PO PRN (18:28)
[2022-07-25 18:59] VITALS: BP 109/54
[2022-07-25] MEDS: RAMELTEON 8 MG TAB (ROZEREM) PO PRN (20:20)
[2022-07-25 20:34] VITALS: BP 109/54
[2022-07-25] MEDS: ACETAMINOPHEN 500 MG TAB PO PRN (23:15)
[2022-07-26] MEDS: oxyCODONE 5MG TAB PO PRN ×2 (00:32→22:27)
[2022-07-26 06:00] VITALS: BP 139/73
[2022-07-26] MEDS: METOPROLOL SUCC *XL* 12.5MG PER 1/2 TAB (TopROL *XL*) PO SCH (08:19)
[2022-07-26] MEDS: VITAMIN D 1,000 INTERNATIONAL UNITS TABLET PO SCH (08:19)
[2022-07-26] MEDS: ROSUVASTATIN 10 MG TAB (CRESTOR) PO SCH (08:19)
[2022-07-26] MEDS: LACTOBACILLUS ACIDOPHILUS CAP (BACID) PO SCH (08:19)
[2022-07-26] MEDS: SPIRONOLACTONE 25 MG TAB PO SCH (08:19)
[2022-07-26] MEDS: DOCUSATE SODIUM 100MG CAPSULE PO SCH (08:19)
[2022-07-26] MEDS: APIXABAN 5 MG TAB (ELIQUIS) PO SCH ×2 (08:20→20:46)
[2022-07-26] MEDS: oxyCODONE 15MG CR TAB PO SCH ×2 (08:20→20:47)
[2022-07-26] MEDS: PANTOPRAZOLE 40MG TAB (PROTONIX) PO SCH (08:21)
[2022-07-26] MEDS: MULTIVITAMINS/MINERALS THERAP 1 TAB PO SCH (08:21)
[2022-07-26] MEDS: AMIODARONE 200 MG TAB (PACERONE) PO SCH (08:21)
[2022-07-26] MEDS: LIDOCAINE 5% (LIDODERM) PATCH TD SCH (08:21)
[2022-07-26] MEDS: ANALGESIC BALM CRM 3OZ TOP SCH ×2 (08:21→20:48)
[2022-07-26] MEDS: MIRALAX *UNIT DOSE* 17GM PACKET PO SCH (08:22)
[2022-07-26] MEDS: SODIUM CHLORIDE 0.9% INJ 10 ML SYR IV SCH ×2 (08:23→16:59)
[2022-07-26] MEDS: VANCOMYCIN HCL 750 MG, VIAL MATE ADAPTER 1 EACH in D5W 250 ML IV SCH ×2 (14:58→15:54)
[2022-07-26] MEDS: RAMELTEON 8 MG TAB (ROZEREM) PO PRN (22:26)
[2022-07-27] MEDS: SODIUM CHLORIDE 0.9% INJ 10 ML SYR IV SCH ×2 (06:00→08:42)
[2022-07-27] MEDS: LACTOBACILLUS ACIDOPHILUS CAP (BACID) PO SCH (08:38)
[2022-07-27] MEDS: MULTIVITAMINS/MINERALS THERAP 1 TAB PO SCH (08:38)
[2022-07-27] MEDS: ROSUVASTATIN 10 MG TAB (CRESTOR) PO SCH (08:39)
[2022-07-27] MEDS: METOPROLOL SUCC *XL* 12.5MG PER 1/2 TAB (TopROL *XL*) PO SCH (08:39)
[2022-07-27] MEDS: AMIODARONE 200 MG TAB (PACERONE) PO SCH (08:39)
[2022-07-27] MEDS: oxyCODONE 15MG CR TAB PO SCH ×2 (08:39→21:22)
[2022-07-27] MEDS: VITAMIN D 1,000 INTERNATIONAL UNITS TABLET PO SCH (08:40)
[2022-07-27] MEDS: APIXABAN 5 MG TAB (ELIQUIS) PO SCH ×2 (08:40→21:18)
[2022-07-27] MEDS: SPIRONOLACTONE 25 MG TAB PO SCH (08:40)
[2022-07-27] MEDS: PANTOPRAZOLE 40MG TAB (PROTONIX) PO SCH (08:40)
[2022-07-27] MEDS: MIRALAX *UNIT DOSE* 17GM PACKET PO SCH (08:40)
[2022-07-27] MEDS: DOCUSATE SODIUM 100MG CAPSULE PO SCH (08:40)
[2022-07-27] MEDS: LIDOCAINE 5% (LIDODERM) PATCH TD SCH (08:41)
[2022-07-27] MEDS: ANALGESIC BALM CRM 3OZ TOP SCH ×2 (08:41→21:23)
[2022-07-27] MEDS: oxyCODONE 5MG TAB PO PRN ×2 (10:13→19:15)
[2022-07-27] MEDS: VANCOMYCIN HCL 750 MG, VIAL MATE ADAPTER 1 EACH in D5W 250 ML IV SCH ×2 (14:27→15:51)
[2022-07-28] MEDS: IPRATROPIUM 0.5MG/ALBUTEROL 2.5MG INH SOL UD 3ML (DUONEB) NEB PRN (04:16)
[2022-07-28 04:18] VITALS: O2SAT 97
[2022-07-28 06:00] VITALS: BP 119/65
[2022-07-28] MEDS: SODIUM CHLORIDE 0.9% INJ 10 ML SYR IV SCH ×2 (06:35→16:51)
[2022-07-28] MEDS: LIDOCAINE 5% (LIDODERM) PATCH TD SCH (08:39)
[2022-07-28] MEDS: MIRALAX *UNIT DOSE* 17GM PACKET PO SCH (08:39)
[2022-07-28] MEDS: SPIRONOLACTONE 25 MG TAB PO SCH (08:40)
[2022-07-28] MEDS: LACTOBACILLUS ACIDOPHILUS CAP (BACID) PO SCH (08:40)
[2022-07-28] MEDS: PANTOPRAZOLE 40MG TAB (PROTONIX) PO SCH (08:40)
[2022-07-28] MEDS: DOCUSATE SODIUM 100MG CAPSULE PO SCH (08:41)
[2022-07-28] MEDS: oxyCODONE 15MG CR TAB PO SCH ×2 (08:41→18:59)
[2022-07-28] MEDS: METOPROLOL SUCC *XL* 12.5MG PER 1/2 TAB (TopROL *XL*) PO SCH (08:41)
[2022-07-28] MEDS: ROSUVASTATIN 10 MG TAB (CRESTOR) PO SCH (08:42)
[2022-07-28] MEDS: AMIODARONE 200 MG TAB (PACERONE) PO SCH (08:42)
[2022-07-28] MEDS: APIXABAN 5 MG TAB (ELIQUIS) PO SCH ×2 (08:42→18:58)
[2022-07-28] MEDS: ANALGESIC BALM CRM 3OZ TOP SCH ×2 (08:42→22:28)
[2022-07-28] MEDS: VITAMIN D 1,000 INTERNATIONAL UNITS TABLET PO SCH (08:42)
[2022-07-28] MEDS: MULTIVITAMINS/MINERALS THERAP 1 TAB PO SCH (08:42)
[2022-07-28 13:42] LABS: VANCOMYCIN LEVEL TROUGH 17.6 UG/ML (10.0-20.0)
[2022-07-28 13:44] LABS: CALCIUM LEVEL 9.3 MG/DL (8.3-10.6); CREATININE FOR GFR 0.94 MG/DL (0.55-1.30); POTASSIUM SERUM 4.2 MMOL/L (3.5-5.1)
[2022-07-28] MEDS: VANCOMYCIN HCL 750 MG, VIAL MATE ADAPTER 1 EACH in D5W 250 ML IV SCH ×2 (14:14→15:32)
[2022-07-28] MEDS: ACETAMINOPHEN 500 MG TAB PO PRN (18:58)
[2022-07-28] MEDS: RAMELTEON 8 MG TAB (ROZEREM) PO PRN (22:27)
[2022-07-29] MEDS: oxyCODONE 5MG TAB PO PRN (04:13)
[2022-07-29] MEDS: SODIUM CHLORIDE 0.9% INJ 10 ML SYR IV SCH ×2 (04:41→16:27)
[2022-07-29] MEDS: NYSTATIN 100,000 UNITS/GM TOPICAL PWD 15GM TOP PRN (04:52)
[2022-07-29 06:00] VITALS: BP 119/56
[2022-07-29 06:30] VITALS: BP 121/81
[2022-07-29] MEDS: LIDOCAINE 5% (LIDODERM) PATCH TD SCH (09:03)
[2022-07-29] MEDS: MIRALAX *UNIT DOSE* 17GM PACKET PO SCH (09:03)
[2022-07-29] MEDS: LACTOBACILLUS ACIDOPHILUS CAP (BACID) PO SCH (09:04)
[2022-07-29] MEDS: METOPROLOL SUCC *XL* 12.5MG PER 1/2 TAB (TopROL *XL*) PO SCH (09:04)
[2022-07-29] MEDS: MULTIVITAMINS/MINERALS THERAP 1 TAB PO SCH (09:04)
[2022-07-29] MEDS: APIXABAN 5 MG TAB (ELIQUIS) PO SCH ×2 (09:04→20:01)
[2022-07-29] MEDS: AMIODARONE 200 MG TAB (PACERONE) PO SCH (09:04)
[2022-07-29] MEDS: ANALGESIC BALM CRM 3OZ TOP SCH ×2 (09:04→20:03)
[2022-07-29] MEDS: VITAMIN D 1,000 INTERNATIONAL UNITS TABLET PO SCH (09:04)
[2022-07-29] MEDS: DOCUSATE SODIUM 100MG CAPSULE PO SCH (09:04)
[2022-07-29] MEDS: PANTOPRAZOLE 40MG TAB (PROTONIX) PO SCH (09:04)
[2022-07-29] MEDS: oxyCODONE 15MG CR TAB PO SCH ×2 (09:06→20:03)
[2022-07-29] MEDS: SPIRONOLACTONE 25 MG TAB PO SCH (09:06)
[2022-07-29] MEDS: ROSUVASTATIN 10 MG TAB (CRESTOR) PO SCH (09:06)
[2022-07-29 14:00] VITALS: BP 137/60
[2022-07-29] MEDS: VANCOMYCIN HCL 750 MG, VIAL MATE ADAPTER 1 EACH in D5W 250 ML IV SCH ×2 (14:19→15:23)
[2022-07-29] MEDS ORDERED: ONDANSETRON 4MG 2ML VIAL IV PRN (19:20)
[2022-07-29 19:55] VITALS: BP 121/57
[2022-07-29] MEDS: SODIUM CHLORIDE 0.9% INJ 10 ML SYR IV PRN (20:02)
[2022-07-29] MEDS: RAMELTEON 8 MG TAB (ROZEREM) PO PRN (23:57)
[2022-07-30] MEDS: oxyCODONE 5MG TAB PO PRN (02:49)
[2022-07-30] MEDS: SODIUM CHLORIDE 0.9% INJ 10 ML SYR IV SCH ×2 (05:34→17:16)
[2022-07-30 06:18] VITALS: BP 110/74
[2022-07-30 09:59] LABS: GLOMERULAR FILTRATION RATE 55.8 (>32)
[2022-07-30] MEDS: VITAMIN D 1,000 INTERNATIONAL UNITS TABLET PO SCH (10:31)
[2022-07-30] MEDS: DOCUSATE SODIUM 100MG CAPSULE PO SCH (10:31)
[2022-07-30] MEDS: MIRALAX *UNIT DOSE* 17GM PACKET PO SCH (10:31)
[2022-07-30] MEDS: LACTOBACILLUS ACIDOPHILUS CAP (BACID) PO SCH (10:31)
[2022-07-30] MEDS: LIDOCAINE 5% (LIDODERM) PATCH TD SCH (10:31)
[2022-07-30] MEDS: PANTOPRAZOLE 40MG TAB (PROTONIX) PO SCH (10:32)
[2022-07-30] MEDS: MULTIVITAMINS/MINERALS THERAP 1 TAB PO SCH (10:32)
[2022-07-30] MEDS: ROSUVASTATIN 10 MG TAB (CRESTOR) PO SCH (10:32)
[2022-07-30] MEDS: APIXABAN 5 MG TAB (ELIQUIS) PO SCH ×2 (10:33→21:39)
[2022-07-30] MEDS: SPIRONOLACTONE 25 MG TAB PO SCH (10:33)
[2022-07-30] MEDS: oxyCODONE 15MG CR TAB PO SCH ×2 (10:33→21:40)
[2022-07-30] MEDS: AMIODARONE 200 MG TAB (PACERONE) PO SCH (10:33)
[2022-07-30] MEDS: ANALGESIC BALM CRM 3OZ TOP SCH ×2 (10:34→21:39)
[2022-07-30] MEDS: METOPROLOL SUCC *XL* 12.5MG PER 1/2 TAB (TopROL *XL*) PO SCH (10:37)
[2022-07-30] MEDS: VANCOMYCIN HCL 750 MG, VIAL MATE ADAPTER 1 EACH in D5W 250 ML IV SCH ×2 (14:38→15:57)
[2022-07-30] MEDS: NYSTATIN 100,000 UNITS/GM TOPICAL PWD 15GM TOP PRN (21:39)
[2022-07-30] MEDS: RAMELTEON 8 MG TAB (ROZEREM) PO PRN (21:39)
[2022-07-31 05:54] VITALS: BP 125/59
[2022-07-31] MEDS: SODIUM CHLORIDE 0.9% INJ 10 ML SYR IV SCH (06:12)
[2022-07-31] MEDS: ACETAMINOPHEN 500 MG TAB PO PRN (06:13)
[2022-07-31] MEDS ORDERED: OXYC15TA66 PO (08:24)
[2022-07-31] MEDS ORDERED: RISATAB3 PO (08:24)
[2022-07-31] MEDS ORDERED: OXYC-517 PO (08:24)
[2022-07-31] MEDS ORDERED: SENN18TA PO (08:24)
[2022-07-31] MEDS ORDERED: VANC1.5P19 IV (08:24)
[2022-07-31] MEDS: MULTIVITAMINS/MINERALS THERAP 1 TAB PO SCH (08:56)
[2022-07-31 08:57] VITALS: BP 125/59
[2022-07-31] MEDS: AMIODARONE 200 MG TAB (PACERONE) PO SCH (08:57)
[2022-07-31] MEDS: METOPROLOL SUCC *XL* 12.5MG PER 1/2 TAB (TopROL *XL*) PO SCH (08:57)
[2022-07-31] MEDS: SPIRONOLACTONE 25 MG TAB PO SCH (08:57)
[2022-07-31] MEDS: LACTOBACILLUS ACIDOPHILUS CAP (BACID) PO SCH (08:57)
[2022-07-31] MEDS: APIXABAN 5 MG TAB (ELIQUIS) PO SCH (08:58)
[2022-07-31] MEDS: oxyCODONE 15MG CR TAB PO SCH (08:58)
[2022-07-31] MEDS: ROSUVASTATIN 10 MG TAB (CRESTOR) PO SCH (08:58)
[2022-07-31] MEDS: PANTOPRAZOLE 40MG TAB (PROTONIX) PO SCH (08:58)
[2022-07-31] MEDS: NYSTATIN 100,000 UNITS/GM TOPICAL PWD 15GM TOP PRN (08:59)
[2022-07-31] MEDS: VITAMIN D 1,000 INTERNATIONAL UNITS TABLET PO SCH (08:59)
[2022-07-31] MEDS: MIRALAX *UNIT DOSE* 17GM PACKET PO SCH (09:00)
[2022-07-31] MEDS: LIDOCAINE 5% (LIDODERM) PATCH TD SCH (09:00)
[2022-07-31] MEDS: ANALGESIC BALM CRM 3OZ TOP SCH (09:00)
[2022-07-31] MEDS: DOCUSATE SODIUM 100MG CAPSULE PO SCH (09:01)
== END 2022-07-31 11:09 | DRG 552 ==
LOC: EDBD 15:11 → M ED 15:11 → M ED INP 21:44 → EEVIPCON 21:44 → M ED 22:42 → M MSPAV 22:43
PROVIDERS: ADMIT Internal Medicine; ATTEND Internal Medicine
PROC: B246ZZ4 Ultrasonography of Right and Left Heart, Transesophageal (ICD-10-PCS; 2022-07-16)
PROC: 02HV33Z Insertion of Infusion Device into Superior Vena Cava, Percutaneous Approach (ICD-10-PCS; principal; 2022-07-16 11:46)
DX: M48.07 Spinal stenosis, lumbosacral region (principal); R78.81 Bacteremia; K21.9 Gastro-esophageal reflux disease without esophagitis; G47.00 Insomnia, unspecified; I25.10 Atherosclerotic heart disease of native coronary artery without angina pectoris; I10 Essential (primary) hypertension; M54.50 Low back pain, unspecified; Z79.01 Long term (current) use of anticoagulants; Z95.0 Presence of cardiac pacemaker; Z79.899 Other long term (current) drug therapy; Z93.3 Colostomy status; I27.81 Cor pulmonale (chronic); I27.20 Pulmonary hypertension, unspecified; I25.2 Old myocardial infarction; Z98.41 Cataract extraction status, right eye; M51.37 Other intervertebral disc degeneration, lumbosacral region; I48.0 Paroxysmal atrial fibrillation; B95.62 Methicillin resistant Staphylococcus aureus infection as the cause of diseases classified elsewhere; K59.00 Constipation, unspecified

== ENCOUNTER → 2022-09-09 | Outpatient (CLI) | payer OTHER, MEDICAID ==
[~2022-09-09] MED LIST changes: +DICL1GEL3 TOP; +LIDO5TD TD; +METO1TAB32 PO; +OXYC-517 PO; +OXYC15TA66 PO; +PANT-23 PO; +RISATAB3 PO; +SENN18TA PO; +SPIR-10 PO; +VANC1.5P19 IV
[2022-09-09 11:27] LABS: BASO # 0.1 10^3/uL (0.0-0.2); BASO % 0.8 % (0.0-1.0); HEMATOCRIT 40.3 % (36.0-47.0); LYMPH # 1.8 10^3/uL (1.5-5.0); MEAN CORPUSCULAR HEMOGLOBIN 28.9 pg (27.0-33.0); MEAN CORPUSCULAR HGB CONC 32.3 g/dl (32.0-36.5); MEAN CORPUSCULAR VOLUME 89.6 fl (80.0-96.0); MONO % 13.7 % (2.0-8.0); NEUTROPHILS # 4.3 10^3/uL (1.5-8.5); NEUTROPHILS % 59.9 % (36.0-66.0); PLATELET COUNT, AUTOMATED 221 10^3/uL (150-450); WHITE BLOOD COUNT 7.2 10^3/uL (4.0-10.0)
[2022-09-09 11:56] LABS: ERYTHROCYTE SEDIMENTATION RATE 60 mm/hr (0-30)
[2022-09-09 14:47] LABS: C REACTIVE PROTEIN QUANTITATIV < 0.40 MG/DL (<1.0)
[2022-09-09 14:49] LABS: ALBUMIN 4.2 G/DL (3.2-5.2); ALKALINE PHOSPHATASE 117 U/L (46-116); ALT/SGPT 31 U/L (7.0-40); AST/SGOT 30 U/L (<34); BILIRUBIN,TOTAL 0.9 MG/DL (0.3-1.2); BLOOD UREA NITROGEN 24 MG/DL (9-23); CALCIUM LEVEL 9.3 MG/DL (8.3-10.6); CARBON DIOXIDE LEVEL 25 MMOL/L (20-31); CHLORIDE LEVEL 103 MMOL/L (98-107); GLOMERULAR FILTRATION RATE 55.8 (>32); GLUCOSE, FASTING 117 MG/DL (74-106); POTASSIUM SERUM 4.4 MMOL/L (3.5-5.1); SODIUM LEVEL 138 MMOL/L (136-145); TOTAL PROTEIN 7.4 G/DL (5.7-8.2)
== END ==
LOC: M PLALAB 09:53
PROVIDERS: ATTEND Internal Medicine Infectious Disease
DX: A49.02 Methicillin resistant Staphylococcus aureus infection, unspecified site (principal)

== ENCOUNTER → 2022-11-06 | Outpatient (CLI) | payer OTHER, MEDICAID ==
[2022-11-06 14:46] LABS: BASO % 0.5 % (0.0-1.0); HEMATOCRIT 38.1 % (36.0-47.0); HEMOGLOBIN 12.2 g/dl (12.0-15.5); LYMPH # 2.3 10^3/uL (1.5-5.0); LYMPH % 28.7 % (24.0-44.0); MEAN CORPUSCULAR HEMOGLOBIN 29.2 pg (27.0-33.0); MEAN CORPUSCULAR VOLUME 91.1 fl (80.0-96.0); MONO # 1.3 10^3/uL (0.0-0.8); MONO % 15.9 % (2.0-8.0); NEUTROPHILS # 4.3 10^3/uL (1.5-8.5); NEUTROPHILS % 54.1 % (36.0-66.0); PLATELET COUNT, AUTOMATED 215 10^3/uL (150-450); RED BLOOD COUNT 4.18 10^6/uL (4.00-5.40); WHITE BLOOD COUNT 7.9 10^3/uL (4.0-10.0)
[2022-11-06 14:47] LABS: CALCIUM LEVEL 9.7 MG/DL (8.3-10.6); CREATININE FOR GFR 1.14 MG/DL (0.55-1.30); POTASSIUM SERUM 4.9 MMOL/L (3.5-5.1)
[2022-11-06 15:57] LABS: HEMOGLOBIN A1c 5.3 % (4.0-6.0)
== END ==
LOC: M PLALAB 11:37
PROVIDERS: ATTEND Physician Assistant Medical
DX: R73.01 Impaired fasting glucose (principal); D50.9 Iron deficiency anemia, unspecified; I50.32 Chronic diastolic (congestive) heart failure

== ENCOUNTER → 2022-11-28 | Outpatient (CLI) | payer OTHER, MEDICAID ==
[~2022-11-28] MED LIST changes: -COZA50TA PO; +LOSA-528 PO; -LOSA100T45 PO; +LOSA100T46 PO
[2022-11-28 11:49] LABS: ALBUMIN 4.1 G/DL (3.2-5.2); BILIRUBIN,DIRECT 0.2 MG/DL (<0.4); BILIRUBIN,TOTAL 0.7 MG/DL (0.3-1.2); MAGNESIUM LEVEL 1.9 MG/DL (1.8-2.4); TOTAL PROTEIN 7.4 G/DL (5.7-8.2)
[2022-11-28 11:50] LABS: THYROID STIMULATING HORMONE 0.918 uIU/ML (0.55-4.78)
== END ==
LOC: M LAB 10:43
PROVIDERS: ATTEND Physician Assistant
DX: I48.0 Paroxysmal atrial fibrillation (principal)

== ENCOUNTER → 2023-02-04 | Outpatient (CLI) | payer OTHER, MEDICAID ==
[~2023-02-04] MED LIST changes: +SENN-111 PO; -SENN18TA PO
[2023-02-04 15:30] LABS: BASO # 0.1 10^3/uL (0.0-0.2); BASO % 0.6 % (0.0-1.0); HEMATOCRIT 40.5 % (36.0-47.0); HEMOGLOBIN 12.9 g/dl (12.0-15.5); LYMPH # 2.2 10^3/uL (1.5-5.0); LYMPH % 28.4 % (24.0-44.0); MEAN CORPUSCULAR HEMOGLOBIN 29.1 pg (27.0-33.0); MEAN CORPUSCULAR HGB CONC 31.9 g/dl (32.0-36.5); MEAN CORPUSCULAR VOLUME 91.2 fl (80.0-96.0); MONO # 1.3 10^3/uL (0.0-0.8); MONO % 16.9 % (2.0-8.0); NEUTROPHILS # 4.2 10^3/uL (1.5-8.5); NEUTROPHILS % 53.3 % (36.0-66.0); PLATELET COUNT, AUTOMATED 187 10^3/uL (150-450); RED BLOOD COUNT 4.44 10^6/uL (4.00-5.40); WHITE BLOOD COUNT 7.9 10^3/uL (4.0-10.0)
[2023-02-04 16:11] LABS: FERRITIN 36.5 NG/ML (7.3-270.7)
[2023-02-06 16:18] LABS: H PYLORI SERUM QUANT IGM <9.0 units (0.0-8.9); H PYLORI SERUM QUANT IgG ABY 0.15 (0.00-0.79)
== END ==
LOC: M PLALAB 12:22
PROVIDERS: ATTEND Physician Assistant Medical
DX: D50.9 Iron deficiency anemia, unspecified (principal)

== ENCOUNTER → 2023-03-27 | Outpatient (CLI) | payer OTHER, MEDICAID ==
[~2023-03-27] MED LIST changes: +DICL100G10 TOP; -DICL1GEL3 TOP
== END ==
LOC: M WHC 14:50
PROVIDERS: ATTEND Physician Assistant Medical
DX: Z12.31 Encounter for screening mammogram for malignant neoplasm of breast (principal)

== ENCOUNTER → 2023-06-29 | Outpatient (CLI) | payer OTHER, MEDICAID ==
[~2023-06-29] MED LIST changes: +LORA-1041 PO; -LORA-674 PO
[2023-06-29 12:41] LABS: BASO % 0.4 % (0.0-1.0); HEMATOCRIT 38.4 % (36.0-47.0); HEMOGLOBIN 12.1 g/dl (12.0-15.5); LYMPH # 2.5 10^3/uL (1.5-5.0); LYMPH % 37.3 % (24.0-44.0); MEAN CORPUSCULAR HEMOGLOBIN 29.7 pg (27.0-33.0); MEAN CORPUSCULAR HGB CONC 31.5 g/dl (32.0-36.5); MEAN CORPUSCULAR VOLUME 94.1 fl (80.0-96.0); MONO # 1.1 10^3/uL (0.0-0.8); MONO % 15.8 % (2.0-8.0); NEUTROPHILS # 3.1 10^3/uL (1.5-8.5); NEUTROPHILS % 45.8 % (36.0-66.0); PLATELET COUNT, AUTOMATED 191 10^3/uL (150-450); RED BLOOD COUNT 4.08 10^6/uL (4.00-5.40); WHITE BLOOD COUNT 6.8 10^3/uL (4.0-10.0)
[2023-06-29 13:11] LABS: FERRITIN 23.6 NG/ML (7.3-270.7)
== END ==
LOC: M PLALAB 11:13
PROVIDERS: ATTEND Physician Assistant Medical
DX: D50.9 Iron deficiency anemia, unspecified (principal)

== ENCOUNTER → 2023-08-06 | Outpatient (CLI) | payer OTHER, MEDICAID ==
[2023-08-06 16:37] LABS: ALBUMIN 4.2 G/DL (3.2-5.2); BILIRUBIN,TOTAL 0.7 MG/DL (0.3-1.2); CALCIUM LEVEL 9.6 MG/DL (8.3-10.6); CHOLESTEROL RISK RATIO 2.64 (<5); CREATININE FOR GFR 1.02 MG/DL (0.55-1.30); GLOMERULAR FILTRATION RATE 54.4 (>32); HDL CHOLESTEROL 66.6 MG/DL (>40); LDL CHOLESTEROL 78.2 MG/DL (<100); MAGNESIUM LEVEL 2.1 MG/DL (1.8-2.4); NON-HDL-C 109.4 MG/DL; POTASSIUM SERUM 4.6 MMOL/L (3.5-5.1); TOTAL PROTEIN 7.2 G/DL (5.7-8.2)
[2023-08-06 16:40] LABS: THYROID STIMULATING HORMONE 1.08 uIU/ML (0.55-4.78)
== END ==
LOC: M PLAIMG 12:00
PROVIDERS: ATTEND Physician Assistant
DX: I48.0 Paroxysmal atrial fibrillation (principal); E78.00 Pure hypercholesterolemia, unspecified

== ENCOUNTER → 2023-11-17 | Outpatient (CLI) | payer OTHER, MEDICAID ==
[2023-11-17 14:54] LABS: BASO % 0.7 % (0.0-1.0); HEMATOCRIT 39.2 % (36.0-47.0); HEMOGLOBIN 12.5 g/dl (12.0-15.5); LYMPH % 33.2 % (24.0-44.0); MEAN CORPUSCULAR HEMOGLOBIN 29.4 pg (27.0-33.0); MEAN CORPUSCULAR HGB CONC 31.9 g/dl (32.0-36.5); MEAN CORPUSCULAR VOLUME 92.2 fl (80.0-96.0); MONO # 0.8 10^3/uL (0.0-0.8); MONO % 13.8 % (2.0-8.0); NEUTROPHILS # 3.1 10^3/uL (1.5-8.5); NEUTROPHILS % 51.5 % (36.0-66.0); PLATELET COUNT, AUTOMATED 180 10^3/uL (150-450); RED BLOOD COUNT 4.25 10^6/uL (4.00-5.40)
[2023-11-17 15:41] LABS: HEMOGLOBIN A1c 5.1 % (4.0-6.0)
[2023-11-17 16:03] LABS: ALBUMIN 3.9 G/DL (3.2-5.2); BILIRUBIN,TOTAL 0.6 MG/DL (0.3-1.2); CHOLESTEROL RISK RATIO 2.3 (<5); CREATININE FOR GFR 1.15 MG/DL (0.55-1.30); FERRITIN 18.8 NG/ML (7.3-270.7); GLOMERULAR FILTRATION RATE 47.4 (>32); HDL CHOLESTEROL 64.7 MG/DL (>40); LDL CHOLESTEROL 53.5 MG/DL (<100); NON-HDL-C 84.3 MG/DL; POTASSIUM SERUM 4.2 MMOL/L (3.5-5.1); PTH INTACT 103.2 PG/ML (18.5-88.0); TOTAL 25(OH) VITAMIN D 28.7 NG/ML (20.0-100.0); TOTAL PROTEIN 6.9 G/DL (5.7-8.2)
== END ==
LOC: M LAB 14:14
PROVIDERS: ATTEND Physician Assistant Medical
DX: D50.9 Iron deficiency anemia, unspecified (principal); R73.01 Impaired fasting glucose; E78.5 Hyperlipidemia, unspecified; E55.9 Vitamin D deficiency, unspecified

== ENCOUNTER 2023-12-08 13:35 | Outpatient (CLI) | payer OTHER, MEDICAID ==
[~2023-12-08] VITALS: Ht 162.6 cm; Wt 81.8 kg
[~2023-12-08 13:35] MED LIST changes: +ALBUTEROL SULFATE 2.5MG/0.5ML INH NEB SOLN INH PRN; +EPINEPHrine INJ 1 MG/ML 1ML AMP IM PRN; +diphenhydrAMINE 50MG/ML VIAL IV PRN; +methylPREDNISolone 125MG 2ML VIAL IV PRN
[2023-12-08 13:45] VITALS: BP 167/80; O2SAT 97
[2023-12-08] MEDS ORDERED: NS 1,000 ML IV SCH (14:00)
[2023-12-08] MEDS: diphenhydrAMINE 25MG CAP PO ONE (14:24)
[2023-12-08] MEDS: ACETAMINOPHEN TAB 650MG DOSE (2X325MG) PO ONE (14:24)
[2023-12-08] MEDS: IRON SUCROSE 250 MG in NS 237.5 ML IV ONE (14:44)
[2023-12-08 16:15] VITALS: BP 154/68; O2SAT 96
== END 2023-12-08 16:15 | disposition home or self-care (01) ==
LOC: M INFU 13:35
PROVIDERS: ATTEND Physician Assistant Medical
DX: D50.9 Iron deficiency anemia, unspecified (principal)
CPT/HCPCS: 96365; J1756

== ENCOUNTER 2023-12-21 14:25 | Outpatient (CLI) | payer OTHER, MEDICAID ==
[~2023-12-21] VITALS: Ht 165.1 cm; Wt 86.8 kg
[2023-12-21] MEDS ORDERED: NS 1,000 ML IV SCH (14:30)
[2023-12-21 14:36] VITALS: BP 130/60; O2SAT 95
[2023-12-21] MEDS: diphenhydrAMINE 25MG CAP PO ONE (14:56)
[2023-12-21] MEDS: ACETAMINOPHEN TAB 650MG DOSE (2X325MG) PO ONE (14:56)
[2023-12-21] MEDS: IRON SUCROSE 250 MG in NS 237.5 ML IV ONE (14:58)
[2023-12-21 16:35] VITALS: BP 152/70; O2SAT 97
== END 2023-12-21 16:35 | disposition home or self-care (01) ==
LOC: M INFU 14:25
PROVIDERS: ATTEND Physician Assistant Medical
DX: D50.9 Iron deficiency anemia, unspecified (principal)
CPT/HCPCS: 96365; J1756

== ENCOUNTER 2023-12-31 13:55 | Outpatient (CLI) | payer OTHER, MEDICAID ==
[~2023-12-31] VITALS: Ht 162.6 cm; Wt 96.0 kg
[2023-12-31 13:55] VITALS: BP 182/83; O2SAT 95
[~2023-12-31 13:55] MED LIST changes: +NS 1,000 ML IV SCH
[2023-12-31] MEDS ORDERED: ACETAMINOPHEN 650MG PO PRIOR TO INFUSION PO ONE (14:00)
[2023-12-31] MEDS ORDERED: diphenhydrAMINE 25MG PO PRIOR TO INFUSION PO ONE (14:00)
[2023-12-31] MEDS: IRON SUCROSE 250 MG in NS 237.5 ML IV ONE (14:19)
[2023-12-31 15:25] VITALS: BP 168/88; O2SAT 97
== END 2023-12-31 15:25 | disposition home or self-care (01) ==
LOC: M INFU 13:55
PROVIDERS: ATTEND Physician Assistant Medical
DX: D50.9 Iron deficiency anemia, unspecified (principal)
CPT/HCPCS: 96365; J1756

== ENCOUNTER → 2024-04-01 | Outpatient (CLI) | payer OTHER, MEDICAID ==
[~2024-04-01] MED LIST changes: -ALBUTEROL SULFATE 2.5MG/0.5ML INH NEB SOLN INH PRN; -EPINEPHrine INJ 1 MG/ML 1ML AMP IM PRN; -NS 1,000 ML IV SCH; -diphenhydrAMINE 50MG/ML VIAL IV PRN; -methylPREDNISolone 125MG 2ML VIAL IV PRN
== END ==
LOC: M WHC 14:16
PROVIDERS: ATTEND Physician Assistant Medical
DX: Z12.31 Encounter for screening mammogram for malignant neoplasm of breast (principal); Z13.820 Encounter for screening for osteoporosis; M85.851 Other specified disorders of bone density and structure, right thigh; M85.852 Other specified disorders of bone density and structure, left thigh; M85.88 Other specified disorders of bone density and structure, other site

== ENCOUNTER → 2024-04-15 | Outpatient (CLI) | payer OTHER, MEDICAID ==
[2024-04-15 18:44] LABS: BASO # 0.1 10^3/uL (0.0-0.2); BASO % 0.7 % (0.0-1.0); HEMATOCRIT 40.2 % (36.0-47.0); HEMOGLOBIN 12.9 g/dl (12.0-15.5); LYMPH # 2.6 10^3/uL (1.5-5.0); LYMPH % 37.1 % (24.0-44.0); MEAN CORPUSCULAR HEMOGLOBIN 29.7 pg (27.0-33.0); MEAN CORPUSCULAR HGB CONC 32.1 g/dl (32.0-36.5); MEAN CORPUSCULAR VOLUME 92.4 fl (80.0-96.0); MONO # 1.2 10^3/uL (0.0-0.8); MONO % 16.9 % (2.0-8.0); NEUTROPHILS # 3.1 10^3/uL (1.5-8.5); NEUTROPHILS % 44.4 % (36.0-66.0); PLATELET COUNT, AUTOMATED 212 10^3/uL (150-450); RED BLOOD COUNT 4.35 10^6/uL (4.00-5.40)
[2024-04-15 19:10] LABS: FERRITIN 188.7 NG/ML (7.3-270.7)
== END ==
LOC: M PLALAB 15:42
PROVIDERS: ATTEND Physician Assistant Medical
DX: D50.9 Iron deficiency anemia, unspecified (principal)

== ENCOUNTER → 2024-07-13 | Outpatient (CLI) | payer OTHER, MEDICAID ==
[~2024-07-13] MED LIST changes: -SENN-111 PO; +SENN-165 PO
== END ==
LOC: M CARPUL 10:55
PROVIDERS: ATTEND Physician Assistant Medical
DX: Z79.899 Other long term (current) drug therapy (principal)

== ENCOUNTER 2024-08-11 13:08 | Emergency (ER) | payer OTHER, MEDICAID ==
[~2024-08-11] VITALS: Ht 162.6 cm; Wt 95.5 kg
[~2024-08-11 13:08] MED LIST changes: -BACI500O8 TOP
[2024-08-11 13:21] VITALS: BP 166/74; TEMP 97.4; O2SAT 96
[2024-08-11] MEDS: ACETAMINOPHEN 500 MG TAB PO ONE (13:30)
[2024-08-11] MEDS: BOOSTRIX VACCINE (TETANUS/DIPHTH/ACEL. PERTUSSIS) 0.5ML SYR IM.IMMUN ONE (13:31)
[2024-08-11] MEDS ORDERED: BACI500O8 TOP (15:27)
== END 2024-08-11 15:40 | disposition home or self-care (01) ==
LOC: EDBD 13:08 → M ED 13:08
DX: S80.02XA Contusion of left knee, initial encounter (principal); S00.83XA Contusion of other part of head, initial encounter; S61.411A Laceration without foreign body of right hand, initial encounter; S61.412A Laceration without foreign body of left hand, initial encounter; W10.1XXA Fall (on)(from) sidewalk curb, initial encounter; M22.2X2 Patellofemoral disorders, left knee; M25.78 Osteophyte, vertebrae; M50.30 Other cervical disc degeneration, unspecified cervical region; M54.50 Low back pain, unspecified; E78.5 Hyperlipidemia, unspecified; I10 Essential (primary) hypertension; Y92.511 Restaurant or cafe as the place of occurrence of the external cause; Y93.89 Activity, other specified; Y99.9 Unspecified external cause status; Z23 Encounter for immunization; Z79.01 Long term (current) use of anticoagulants; Z95.0 Presence of cardiac pacemaker; Z87.442 Personal history of urinary calculi; Z79.899 Other long term (current) drug therapy; Z79.1 Long term (current) use of non-steroidal anti-inflammatories (NSAID)

== ENCOUNTER → 2024-08-11 | Outpatient (CLI) | payer OTHER, MEDICAID ==
[~2024-08-11] MED LIST changes: +BACI500O8 TOP
[2024-08-11 13:38] LABS: ALBUMIN 4.3 G/DL (3.2-5.2); BILIRUBIN,TOTAL 0.9 MG/DL (0.3-1.2); CALCIUM LEVEL 10.3 MG/DL (8.3-10.6); CREATININE FOR GFR 1.19 MG/DL (0.55-1.30); GLOMERULAR FILTRATION RATE 45.5 (>32); POTASSIUM SERUM 5.1 MMOL/L (3.5-5.1); TOTAL PROTEIN 7.7 G/DL (5.7-8.2)
[2024-08-11 13:40] LABS: FREE T4 1.76 NG/DL (0.89-1.76); THYROID STIMULATING HORMONE 0.948 uIU/ML (0.55-4.78)
== END ==
LOC: M PLALAB 11:18
PROVIDERS: ATTEND Physician Assistant Medical
DX: Z79.899 Other long term (current) drug therapy (principal)

== ENCOUNTER → 2024-09-22 | Outpatient (CLI) | payer OTHER ==
[~2024-09-22] MED LIST changes: +BACI500O8 TOP
[2024-09-22 16:45] LABS: BASO % 0.4 % (0.0-1.0); EOS % 0.4 % (0.0-3.0); HEMOGLOBIN 13.6 g/dl (12.0-15.5); LYMPH # 2.4 10^3/uL (1.5-5.0); LYMPH % 34.6 % (24.0-44.0); MEAN CORPUSCULAR HEMOGLOBIN 29.7 pg (27.0-33.0); MEAN CORPUSCULAR HGB CONC 32.4 g/dl (32.0-36.5); MEAN CORPUSCULAR VOLUME 91.7 fl (80.0-96.0); MONO # 1.2 10^3/uL (0.0-0.8); NEUTROPHILS # 3.3 10^3/uL (1.5-8.5); PLATELET COUNT, AUTOMATED 225 10^3/uL (150-450); RED BLOOD COUNT 4.58 10^6/uL (4.00-5.40); WHITE BLOOD COUNT 6.9 10^3/uL (4.0-10.0)
[2024-09-22 16:58] LABS: ERYTHROCYTE SEDIMENTATION RATE 39 mm/hr (0-30)
[2024-09-22 17:10] LABS: C REACTIVE PROTEIN QUANTITATIV < 0.50 MG/DL (<1.0); IRON (FE) 73 UG/DL (50-170)
[2024-09-22 17:21] LABS: ALBUMIN 4.4 G/DL (3.2-5.2); ALKALINE PHOSPHATASE 86 U/L (35-104); ALT/SGPT 26 U/L (7.0-40); AST/SGOT 17 U/L (<34); BILIRUBIN,TOTAL 0.7 MG/DL (0.3-1.2); BLOOD UREA NITROGEN 20 MG/DL (9-23); CALCIUM LEVEL 9.7 MG/DL (8.3-10.6); CARBON DIOXIDE LEVEL 28 MMOL/L (20-31); CHLORIDE LEVEL 105 MMOL/L (98-107); CREATININE FOR GFR 1.15 MG/DL (0.55-1.30); FERRITIN 121.3 NG/ML (7.3-270.7); GLOMERULAR FILTRATION RATE 47.3 (>32); GLUCOSE, FASTING 108 MG/DL (74-106); POTASSIUM SERUM 4.2 MMOL/L (3.5-5.1); SODIUM LEVEL 143 MMOL/L (136-145); TOTAL PROTEIN 7.5 G/DL (5.7-8.2)
== END ==
LOC: M RAD 13:00
PROVIDERS: ATTEND Physician Assistant Medical
DX: I51.7 Cardiomegaly (principal); S06.9X0D Unspecified intracranial injury without loss of consciousness, subsequent encounter; S05.92XD Unspecified injury of left eye and orbit, subsequent encounter; W10.8XXA Fall (on) (from) other stairs and steps, initial encounter; Y92.9 Unspecified place or not applicable; Y93.9 Activity, unspecified; Y99.9 Unspecified external cause status; R07.81 Pleurodynia; H57.89 Other specified disorders of eye and adnexa; H53.8 Other visual disturbances; D50.9 Iron deficiency anemia, unspecified; Z95.0 Presence of cardiac pacemaker

== ENCOUNTER 2025-03-27 09:24 | Emergency (ER) | payer OTHER, MEDICAID ==
[~2025-03-27] VITALS: Ht 165.1 cm; Wt 93.2 kg
[~2025-03-27 09:24] MED LIST changes: -AMIO200T49 PO; +AMIO200T54 PO
[2025-03-27 10:01] LABS: VENOUS BASE EXCESS -1.2 (-2.0-2.0); VENOUS HCO3 22.3 MMOL/L (23.0-27.0); VENOUS O2 SATURATION 81.3 % (60.0-80.0); VENOUS PARTIAL PRESSURE CO2 33.3 mmHg (38.0-50.0); VENOUS PARTIAL PRESSURE O2 41.1 mmHg (30.0-50.0); VENOUS PH 7.443 UNITS (7.330-7.430); VENOUS STANDARD HCO3 23.1 MMOL/L; VENOUS TOTAL CO2 23.3 MMOL/L (24.0-28.0)
[2025-03-27 10:13] LABS: BASO # 0.1 10^3/uL (0.0-0.2); BASO % 0.5 % (0.0-1.0); EOS # 0.0 10^3/uL (0.0-0.5); EOS % 0.0 % (0.0-3.0); LYMPH # 2.7 10^3/uL (1.5-5.0); LYMPH % 29.1 % (24.0-44.0); MONO # 2.1 10^3/uL (0.0-0.8); MONO % 23.0 % (2.0-8.0); NEUTROPHILS # 4.3 10^3/uL (1.5-8.5); NEUTROPHILS % 47.0 % (36.0-66.0); PLATELET COUNT, AUTOMATED 167 10^3/uL (150-450)
[2025-03-27 10:20] LABS: CPK CREATINE PHOSPHOKINASE 52.0 U/L (34-145)
[2025-03-27 10:21] LABS: ALT/SGPT 23.0 U/L (7.0-40); AST/SGOT 22.0 U/L (<34); CALCIUM LEVEL 9.0 MG/DL (8.3-10.6); CARBON DIOXIDE LEVEL 25.0 MMOL/L (20-31); CHLORIDE LEVEL 107.0 MMOL/L (98-107); CREATININE FOR GFR 1.15 MG/DL (0.55-1.30); GLOMERULAR FILTRATION RATE 45.5 (>32); POTASSIUM SERUM 4.0 MMOL/L (3.5-5.1); SODIUM LEVEL 143.0 MMOL/L (136-145)
[2025-03-27 10:22] LABS: CK-MB VALUE MASS 1.2 NG/ML (<3.6); MB/CK RELATIVE INDEX 2.3 (< OR =4)
[2025-03-27] MEDS: ACETAMINOPHEN 500 MG TAB PO ONE (10:47)
[2025-03-27 11:29] LABS: POTASSIUM SERUM 4.1 MMOL/L (3.5-5.1)
[2025-03-27 11:37] LABS: CK-MB VALUE MASS 1.6 NG/ML (<3.6); CPK CREATINE PHOSPHOKINASE 56.0 U/L (34-145); MB/CK RELATIVE INDEX 2.85 (< OR =4)
[2025-03-27] MEDS ORDERED: THERTAB52 PO (11:38)
[2025-03-27] MEDS ORDERED: ROSU10TA61 PO (11:38)
[2025-03-27] MEDS ORDERED: METO1TAB87 PO (11:38)
[2025-03-27] MEDS ORDERED: HOME MED LIST COMPLETE! XX SCH (11:40)
[2025-03-27] MEDS ORDERED: ISOVUE-370 76% 100 ML VIAL As Ordered ONE (13:23)
[2025-03-27 15:31] VITALS: BP 128/51; TEMP 96.5; O2SAT 97
== END 2025-03-27 16:04 | disposition home or self-care (01) ==
LOC: M ED 09:24
DX: M25.561 Pain in right knee (principal); M22.2X1 Patellofemoral disorders, right knee; I44.39 Other atrioventricular block; I10 Essential (primary) hypertension; E78.5 Hyperlipidemia, unspecified; Z95.0 Presence of cardiac pacemaker; Z87.442 Personal history of urinary calculi; Z79.01 Long term (current) use of anticoagulants; Z79.1 Long term (current) use of non-steroidal anti-inflammatories (NSAID); Z79.899 Other long term (current) drug therapy
CPT/HCPCS: 36415; 71045; 71275; 73564; 80048; 80076; 82550; 82553; 82803; 83880; 84132; 84443; 84484; 85025; 87040; 87486; 87581; 87633; 87798; 93005; 93041; 93971; 94760; 99285; Q9967

== ENCOUNTER → 2025-04-04 | Outpatient (CLI) | payer OTHER, MEDICAID ==
[~2025-04-04] MED LIST changes: +METO1TAB87 PO; +ROSU10TA61 PO; +THERTAB52 PO
[2025-04-04 15:04] LABS: BASO # 0.1 10^3/uL (0.0-0.2); BASO % 0.8 % (0.0-1.0); EOS # 0.0 10^3/uL (0.0-0.5); EOS % 0.0 % (0.0-3.0); LYMPH # 2.2 10^3/uL (1.5-5.0); LYMPH % 31.4 % (24.0-44.0); MONO # 1.3 10^3/uL (0.0-0.8); MONO % 18.1 % (2.0-8.0); NEUTROPHILS # 3.5 10^3/uL (1.5-8.5); NEUTROPHILS % 49.0 % (36.0-66.0); PLATELET COUNT, AUTOMATED 203 10^3/uL (150-450)
[2025-04-04 15:14] LABS: ALT/SGPT 24.0 U/L (7.0-40); AST/SGOT 25.0 U/L (<34); CALCIUM LEVEL 9.6 MG/DL (8.3-10.6); CARBON DIOXIDE LEVEL 28.0 MMOL/L (20-31); CHLORIDE LEVEL 106.0 MMOL/L (98-107); CHOLESTEROL LEVEL 171.0 MG/DL (<200); CHOLESTEROL RISK RATIO 2.55 (<5); CREATININE FOR GFR 1.27 MG/DL (0.55-1.30); GLOMERULAR FILTRATION RATE 40.4 (>32); IRON (FE) 149.0 UG/DL (50-170); LDL CHOLESTEROL 81.6 MG/DL (<100); NON-HDL-C 104.0 MG/DL; POTASSIUM SERUM 4.3 MMOL/L (3.5-5.1); SODIUM LEVEL 144.0 MMOL/L (136-145); TRIGLYCERIDES LEVEL 112.0 MG/DL (<150)
[2025-04-04 15:19] LABS: CPK CREATINE PHOSPHOKINASE 38.0 U/L (34-145)
[2025-04-07 08:46] LABS: FREE T4 1.71 NG/DL (0.89-1.76)
== END ==
LOC: M PLALAB 09:10
PROVIDERS: ATTEND Physician Assistant Medical
DX: I25.10 Atherosclerotic heart disease of native coronary artery without angina pectoris (principal); D50.9 Iron deficiency anemia, unspecified; E78.5 Hyperlipidemia, unspecified; I10 Essential (primary) hypertension